=== PATIENT | female | born 1990 | race Caucasian/White ===

== ENCOUNTER → 2018-06-01 | Outpatient (REF) | payer OTHER ==
[2018-06-01 18:17] LABS: APPEARANCE, URINE CLEAR (CLEAR); BACTERIA, URINE AUTO NEGATIVE (NEGATIVE); BILIRUBIN, URINE AUTO NEGATIVE (NEGATIVE); BLOOD, URINE BLOOD 1+ (NEGATIVE); CALCIUM OXALATE CRYSTALS SMALL; COLOR, URINE YELLOW (YELLOW); GLUCOSE, URINE (UA) AUTO NEGATIVE (NEGATIVE); KETONE, URINE AUTO NEGATIVE (NEGATIVE); LEUKOCYTE ESTERASE, URINE AUTO NEGATIVE (NEGATIVE); MUCUS, URINE SMALL (NEGATIVE); NITRITE, URINE AUTO NEGATIVE (NEGATIVE); PROTEIN, URINE AUTO NEGATIVE (NEGATIVE); RBC, URINE AUTO 2 /HPF (0-3); SQUAMOUS EPITHELIAL CELL UR AU 1 /HPF (0-6); WBC, URINE AUTO 2 /HPF (0-3)
== END ==
LOC: M SMT 17:11
PROVIDERS: ATTEND Nurse Practitioner Family
DX: N30.10 Interstitial cystitis (chronic) without hematuria (principal)
CPT/HCPCS: 51798; 81001; 87088; 87186; G0463

== ENCOUNTER → 2018-09-23 | Outpatient (REF) | payer OTHER ==
[2018-09-23 14:03] LABS: APPEARANCE, URINE CLEAR (CLEAR); BACTERIA, URINE AUTO NEGATIVE (NEGATIVE); BILIRUBIN, URINE AUTO NEGATIVE (NEGATIVE); BLOOD, URINE BLOOD 1+ (NEGATIVE); COLOR, URINE YELLOW (YELLOW); GLUCOSE, URINE (UA) AUTO NEGATIVE (NEGATIVE); KETONE, URINE AUTO NEGATIVE (NEGATIVE); LEUKOCYTE ESTERASE, URINE AUTO NEGATIVE (NEGATIVE); MUCUS, URINE SMALL (NEGATIVE); NITRITE, URINE AUTO NEGATIVE (NEGATIVE); PROTEIN, URINE AUTO NEGATIVE (NEGATIVE); RBC, URINE AUTO 0 /HPF (0-3); SPECIFIC GRAVITY URINE AUTO 1.018 (1.002-1.035); SQUAMOUS EPITHELIAL CELL UR AU 1 /HPF (0-6); UROBILINOGEN, URINE AUTO 0.2 mg/dL (0.0-2.0); WBC, URINE AUTO 1 /HPF (0-3)
== END ==
LOC: M SMT 13:30
PROVIDERS: ATTEND Nurse Practitioner Family
DX: N30.10 Interstitial cystitis (chronic) without hematuria (principal)
CPT/HCPCS: 51798; 81001; 87086; G0463

== ENCOUNTER 2018-11-12 20:57 | Emergency (ER) | payer OTHER ==
[2018-11-12] MEDS ORDERED: PROT20TA11 PO (21:30)
[2018-11-12] MEDS ORDERED: HYDR-3363 PO (21:30)
[2018-11-12] MEDS ORDERED: XANA0.25 PO (21:30)
[2018-11-12] MEDS ORDERED: TOPI25TA10 PO (21:30)
[2018-11-12] MEDS ORDERED: ONDA4TAB6 PO (23:26)
[2018-11-12] MEDS ORDERED: ONDANSETRON 4 MG ORAL DISINTEGRATING TAB (Q0162 PER 1MG) PO ONE (23:30)
[2018-11-12 23:34] VITALS: BP 120/69
== END 2018-11-12 23:35 | disposition home or self-care (01) ==
LOC: M ED 20:57
DX: F32.9 Major depressive disorder, single episode, unspecified (principal); K58.9 Irritable bowel syndrome, unspecified; Z87.440 Personal history of urinary (tract) infections; Z91.018 Allergy to other foods; Z91.010 Allergy to peanuts; Z88.0 Allergy status to penicillin; Z91.012 Allergy to eggs; Z91.013 Allergy to seafood; Z79.899 Other long term (current) drug therapy
CPT/HCPCS: 99284; Q0162

== ENCOUNTER 2018-12-02 03:55 | Emergency (ER) | payer OTHER ==
[~2018-12-02] VITALS: Ht 162.6 cm; Wt 44.5 kg
[~2018-12-02 03:55] MED LIST: HYDR-3363 PO; ONDA4TAB6 PO; PROT20TA11 PO; TOPI25TA10 PO; XANA0.25 PO
[2018-12-02 04:03] VITALS: BP 115/77
[2018-12-02] MEDS ORDERED: PENT10CA PO (04:05)
[2018-12-02] MEDS ORDERED: PRED20TA PO (04:42)
[2018-12-02] MEDS ORDERED: methylPREDNISolone INJ 125 MG/2 ML VIAL (J2930) IV ONE (04:45)
[2018-12-02] MEDS ORDERED: methylPREDNISolone INJ 125 MG/2 ML VIAL (J2930) IM ONE (04:45)
== END 2018-12-02 04:59 | disposition home or self-care (01) ==
LOC: M ED 03:55
DX: R22.0 Localized swelling, mass and lump, head (principal); H05.223 Edema of bilateral orbit; T39.1X5A Adverse effect of 4-Aminophenol derivatives, initial encounter; Z88.8 Allergy status to other drugs, medicaments and biological substances; F41.9 Anxiety disorder, unspecified; K21.9 Gastro-esophageal reflux disease without esophagitis; F17.200 Nicotine dependence, unspecified, uncomplicated; Z88.0 Allergy status to penicillin; Z91.018 Allergy to other foods; Z91.010 Allergy to peanuts; Z91.012 Allergy to eggs; Z79.899 Other long term (current) drug therapy
CPT/HCPCS: 96374; 99284; J2930

== ENCOUNTER → 2019-07-31 | Outpatient (REF) | payer BC, MEDICAID ==
[~2019-07-31] MED LIST changes: +PENT10CA PO; +PRED20TA PO
== END ==
LOC: M PLALAB 14:17
PROVIDERS: ATTEND Advanced Practice Midwife
DX: O03.9 Complete or unspecified spontaneous abortion without complication (principal)
CPT/HCPCS: 84702; G0123

== ENCOUNTER → 2019-10-24 | Outpatient (REF) | payer BC ==
[2019-10-24 18:13] LABS: APPEARANCE, URINE CLEAR (CLEAR); BACTERIA, URINE AUTO 1+ (NEGATIVE); BILIRUBIN, URINE AUTO NEGATIVE (NEGATIVE); BLOOD, URINE BLOOD 1+ (NEGATIVE); COLOR, URINE STRAW (YELLOW); GLUCOSE, URINE (UA) AUTO NEGATIVE (NEGATIVE); KETONE, URINE AUTO NEGATIVE (NEGATIVE); LEUKOCYTE ESTERASE, URINE AUTO NEGATIVE (NEGATIVE); NITRITE, URINE AUTO NEGATIVE (NEGATIVE); PROTEIN, URINE AUTO NEGATIVE (NEGATIVE); RBC, URINE AUTO 1 /HPF (0-3); SPECIFIC GRAVITY URINE AUTO 1.006 (1.002-1.035); SQUAMOUS EPITHELIAL CELL UR AU 1 /HPF (0-6); UROBILINOGEN, URINE AUTO 0.2 mg/dL (0.0-2.0); WBC, URINE AUTO 6 /HPF (0-3)
== END ==
LOC: M SMT 17:22
PROVIDERS: ATTEND Nurse Practitioner Women's Health
DX: R30.0 Dysuria (principal)

== ENCOUNTER → 2019-12-14 | Outpatient (REF) | payer BC, OTHER ==
[2019-12-14 19:42] LABS: CHLAMYDIA DNA AMPLIFICATION NEGATIVE (NEGATIVE); GC DNA AMPLIFICATION NEGATIVE (NEGATIVE)
== END ==
LOC: M SFHCWAGY 16:38
PROVIDERS: ATTEND Nurse Practitioner Family
DX: Z11.3 Encounter for screening for infections with a predominantly sexual mode of transmission (principal)

== ENCOUNTER → 2020-01-25 | Outpatient (REF) | payer BC, OTHER ==
[2020-02-28 10:55] LABS: INR 0.98; PROTHROMBIN TIME 13.2 SECONDS (11.8-14.0)
[2020-02-28 12:55] LABS: HEMATOCRIT 37.8 % (36.0-47.0); HEMOGLOBIN 12.4 g/dl (12.0-15.5); MEAN CORPUSCULAR HGB CONC 32.8 g/dl (32.0-36.5); MEAN CORPUSCULAR VOLUME 88.5 fl (80.0-96.0); PLATELET COUNT, AUTOMATED 211 10^3/uL (150-450); RED BLOOD COUNT 4.27 10^6/uL (4.00-5.40); WHITE BLOOD COUNT 5.2 10^3/uL (4.0-10.0)
[2020-02-29 09:37] LABS: AMORPHOUS SEDIMENT SMALL (NEGATIVE); APPEARANCE, URINE CLOUDY (CLEAR); BACTERIA, URINE AUTO NEGATIVE (NEGATIVE); BILIRUBIN, URINE AUTO NEGATIVE (NEGATIVE); BLOOD, URINE BLOOD 2+ (NEGATIVE); COLOR, URINE YELLOW (YELLOW); GLUCOSE, URINE (UA) AUTO NEGATIVE (NEGATIVE); KETONE, URINE AUTO NEGATIVE (NEGATIVE); LEUKOCYTE ESTERASE, URINE AUTO 3+ (NEGATIVE); MUCUS, URINE SMALL (NEGATIVE); NITRITE, URINE AUTO NEGATIVE (NEGATIVE); PROTEIN, URINE AUTO NEGATIVE (NEGATIVE); RBC, URINE AUTO 15 /HPF (0-3); SPECIFIC GRAVITY URINE AUTO 1.023 (1.002-1.035); SQUAMOUS EPITHELIAL CELL UR AU 30 /HPF (0-6); UROBILINOGEN, URINE AUTO 0.2 mg/dL (0.0-2.0); WBC, URINE AUTO 10 /HPF (0-3)
[2020-03-11 11:46] LABS: BLOOD UREA NITROGEN 9 MG/DL (7-18); CALCIUM LEVEL 8.5 MG/DL (8.5-10.1); CARBON DIOXIDE LEVEL 26 MEQ/L (21-32); CHLORIDE LEVEL 110 MEQ/L (98-107); CREATININE FOR GFR 0.74 MG/DL (0.55-1.30); GLOMERULAR FILTRATION RATE > 60.0 (>60); GLUCOSE, FASTING 77 MG/DL (70-100); POTASSIUM SERUM 3.9 MEQ/L (3.5-5.1); SODIUM LEVEL 142 MEQ/L (136-145)
[2020-03-11 11:47] LABS: HCG, SERUM QUALITATIVE NEGATIVE (NEGATIVE)
== END ==
LOC: M LABSMT 08:54
PROVIDERS: ATTEND Nurse Practitioner Women's Health
DX: Z01.818 Encounter for other preprocedural examination (principal); R30.0 Dysuria; N30.10 Interstitial cystitis (chronic) without hematuria

== ENCOUNTER 2020-01-29 08:28 | Day surgery (SDC) | payer BC, OTHER ==
[2020-01-29] MEDS ORDERED: BOTOX THERAPEUTIC 100 UNIT VIAL (J0585 PER 1 UNIT) ONE (10:01)
[2020-01-29] MEDS ORDERED: SOD CHL As Ordered ONE (10:17)
[2020-01-29] MEDS ORDERED: GENTAMICIN As Ordered ONE (10:17)
[2020-01-29] MEDS ORDERED: ONDANSETRON 4MG/2ML VIAL As Ordered ONE ×2 (10:42→11:12)
[2020-01-29] MEDS ORDERED: dexameTHASONE 4 MG/ML 1ML VIAL (J1100 PER 1MG) As Ordered ONE (10:42)
[2020-01-29] MEDS ORDERED: MIDAZOLAM INJ 2MG/2ML VIAL (J2250 PER 1MG) As Ordered ONE (10:42)
[2020-01-29] MEDS ORDERED: propofoL 200 MG/20 ML VIAL As Ordered ONE (10:42)
[2020-01-29] MEDS ORDERED: LIDOCAINE 2% 100MG/5ML SDV (FOR ANES.) As Ordered ONE (10:42)
[2020-01-29] MEDS ORDERED: fentaNYL 100 MCG/2 ML INJECTION (J3010) As Ordered ONE (10:42)
[2020-01-29] MEDS ORDERED: LIDOCAINE 2% MDV 20ML VIAL As Ordered ONE ×2 (10:53→10:54)
--- NOTE | 2020-03-21 12:05 | RO ---
DATE OF OPERATION: 01/29/2020 PREOPERATIVE DIAGNOSIS: Urinary frequency and interstitial cystitis. POSTOPERATIVE DIAGNOSIS: Urinary frequency and interstitial cystitis. PROCEDURE: Cystoscopy with hydrodistention and Botox injection. SURGEON: Rodríguez Luna MD ANESTHESIA: General. INDICATION FOR OPERATION: This is a 29-year-old white female who presented to the office for complaints of urinary frequency and was therefore brought to the operating room for hydrodistention and Botox injection. She has a previous history of interstitial cystitis and hydrodistention. DESCRIPTION OF OPERATION: The patient was anesthetized with general anesthesia, placed in lithotomy position, prepped with Betadine paint and draped in an aseptic manner. A #22 [place] cystoscope was then inserted into the meatus and advanced under direct vision of a 30 degree lens to the bladder. The bladder was then filled under gravity pressure and when deflated had mild capillary bleeding. The bladder was then reinflated to 500 mL and left for 3 minutes. The bladder was then deflated. Botox was then injected into ten areas in the bladder for a total of 100 units. The patient tolerated this procedure well. 60 mL of 2% lidocaine was then left in the bladder when the cystoscope was removed. The patient was then awakened and sent to recovery room in stable condition, having tolerated the procedure well. RICK
== END 2020-01-29 13:02 | disposition home or self-care (01) ==
LOC: M SDC 08:28
PROVIDERS: ATTEND Urology
DX: R35.0 Frequency of micturition (principal); N30.10 Interstitial cystitis (chronic) without hematuria; K21.9 Gastro-esophageal reflux disease without esophagitis; F41.9 Anxiety disorder, unspecified; J45.909 Unspecified asthma, uncomplicated; Z79.899 Other long term (current) drug therapy
CPT/HCPCS: 52260; 52287; J0585; J1100; J1580; J2250; J2405; J3010

== ENCOUNTER 2020-07-19 14:38 | Emergency (ER) | payer BC, OTHER ==
[~2020-07-19] VITALS: Ht 162.6 cm; Wt 48.6 kg
[2020-07-19] MEDS ORDERED: NS 1,000 ML IV ONE (15:45)
[2020-07-19 16:12] LABS: BASO % 0.4 % (0.0-1.0); EOS # 0.2 10^3/uL (0.0-0.5); HEMATOCRIT 40.7 % (36.0-47.0); HEMOGLOBIN 13.4 g/dl (12.0-15.5); LYMPH # 1.7 10^3/uL (1.5-5.0); MEAN CORPUSCULAR HEMOGLOBIN 28.8 pg (27.0-33.0); MEAN CORPUSCULAR HGB CONC 32.9 g/dl (32.0-36.5); MEAN CORPUSCULAR VOLUME 87.3 fl (80.0-96.0); MONO # 0.3 10^3/uL (0.0-0.8); MONO % 6.2 % (0.0-5.0); NEUTROPHILS # 2.8 10^3/uL (1.5-8.5); NEUTROPHILS % 56.2 % (36.0-66.0); PLATELET COUNT, AUTOMATED 203 10^3/uL (150-450); RED BLOOD COUNT 4.66 10^6/uL (4.00-5.40)
--- OUTSIDE RECORDS SUMMARY | 2020-07-19 16:17 | CCD ---
Author Author [facility] Organization [facility] Address Unknown Phone Unavailable Care Team Providers Care Chair Car Driver Name Role Phone Rodríguez Luna Unavailable PROBLEMS Type Condition ICD9-CM Code [id number] Code Onset Dates Condition S tatus SNOMED Code Notes Problem Abnormal vaginal bleeding N93.9 Active 443176 002 Problem Dyspareunia in female N94.10 Active 32810456 Problem Other tobacco product nicotine dependence, uncomplicated F17.290 Active 26778536 Problem Acute left-sided low back pa in with sciatica, sciatica laterality unspecified M54.40 Active 75686367 Problem Interstitial cystitis N30.10 Active 046095250 Problem Renal calculi N20.0 Active 88264944 Problem GERD without esophagitis K21.9 Active 9769502 05 Problem Mild intermittent asthma without complication J45. 20 Active 979650517 Problem Multiple food allergies Z91.018 Active 25116926 1 Problem Multiple allergies Z88.9 Active 512802829 ALLERGIES Allergen (clinical drug ingredient) Drug/Non Drug Allergy do cumented on EMR Reaction Allergy Type Onset Date Status amoxicillin Amoxicillin(NDC Code:[address]-56) RASH/FEVER Drug Aller gy Active PORK, BLACK PEPPER Unknown Non Drug Allergy Active fesoterodine Toviaz(NDC Code:[address]-66) ANAPHYLAXIS Drug Allergy Active DAIRY PROTEIN, WHEAT, CORN, CHOLCOLATE, PEANUTS, AL Un known Non Drug Allergy Active FISH (OTHER THAN SHELLFISH) UNKNOWN Non Drug Allergy Active BROWN RICE, ALMONDS, TOMATOES, WHITE POTATOES, SOY, Un known Non Drug Allergy Active ENCOUNTERS from 1990 to 2020-07-12 Encounter Location Date Provider Diagnosis [facility] U[facility] [address] [place] [address] Apr Rodríguez Luna Interstitial cystitis N30.10 ; Dysuria R 30.0 ; UTI (urinary tract infection) N39.0 and Renal calculi N20.0 IMMUNIZATIONS No Information SOCIAL HISTORY Tobacco Use: Social History Observation Description Date Details (start date - stop date) Current some day smoker Sex Assigned At : Social History Observation Description Sex Assigned At Unknown Education: Question Answer Notes Level of Education: Finished High School Audit Question Answer Notes Total Score: 0 Interpretation: Alcohol Education Language: Question Answer Notes Languages spoken: Faroese Latter-Day: Question Answer Notes Latter-Day 08 Confucianism No scientologist beliefs that would impact health care. Sexual Hx: Question Answer Notes Had sex in the last 12 months (vaginal, oral, or anal)? Yes Have you ever had an STD? No with Men only Use protection? No Drug and Alcohol Question Answer Notes Total Score: 0 Interpretation: No problems reported Alcohol Screening: Question Answer Notes Did you have a drink containing alcohol in the past year? Ye s Points 1 Interpretation Negative How often did you have six or more drinks on one occas ion in the past year? Never (0 points) How many drinks did you have on a typica l day when you were drinking in the past year? 1 or 2 (0 points) How often did you have a drink containing alcohol in t he past year? Monthly or less (1 point) Tobacco Use: Question Answer Notes Are you a: current some day smoker 1-3 cigarettes a day REASON FOR REFERRAL No Information VITAL SIGNS No information MEDICATIONS Medication SIG (Take, Route, Frequency, Duration) Notes Start Da te End Date Status Pyridium 100 MG 1 tablet after meals Orally Three times a day as needed for burning sensation for 30 days Ac tive Flexeril 10 MG 1 tablet 1 to 2 hours before bedtime Orally three times daily as needed Active Advair Diskus 250-50 MCG/DOSE 1 puff Inhalation Twice a day Active HydrOXYzine HCl 25 MG 1 tablet as needed Orally before bedtime f or 90 day(s) Active Protonix 20 MG 1 tablet Orally Once a day Active Multivital 1 tab orally Daily Active NuvaRing 0.12-0.015 MG/24HR 1 ring Vaginal for 30 day(s) Not-Taking Claritin-D 12 Hour 5-120 MG 1 tablet as needed Orally every 12 hrs Active Proventil HFA 108 (90 Base) MCG/ACT 1 puff as needed I nhalation every 4 hrs for 30 Days Aug, Active Bactrim DS 800-160 MG 1 tablet Orally Twice a day for 10 day(s) October, Not-Taking Elmiron 100 MG 1 capsule on an empty stomach Orally Daily for 9 0 day(s) May, Not-Taking NuvaRing 0.12-0.015 MG/24HR [address] for 3 weeks, remove, and replace with a new ring after 7 day break Vaginal x 3 weeks then one week ring free for 30 day(s) Jul, Active PROCEDURES No Information RESULTS No Results REASON FOR VISIT CT Scan MEDICAL (GENERAL) HISTORY Type Description Date Medical History allergies, seasonal/medication/food Medical History stress induced seizures Medical History scoliosis Medical History migraines Medical History anxiety/depression Medical History chronic R hip and low back pain Medical History asthma, mild persistent - Asthma/allergy Medical History GERD Medical History IBS Medical History endometriosis Medical History intestitial cystitis/microscopic hematur ia Surgical History repair of B ear drums - [place] 2017 Surgical History cystoscopy - [place] 2013 Surgical History bladdedr expansion Surgical History adnoidectomy as a small child Surgical History tonsillectomy - [facility] Dr [place]o [place] 2016 Hospitalization History No Hospitalization history informati on Goals Section No Information Health Concerns No Information MEDICAL EQUIPMENT No Information MENTAL STATUS No Information FUNCTIONAL STATUS No Information ASSESSMENTS Encounter Date Diagnosis Assessment Notes Treatment Notes Treatm ent Clinical Notes Apr, Interstitial cystitis (ICD-10 - N30.10) Apr, Dysuria (ICD-10 - R30.0) Apr, UTI (urinary tract infection) (ICD-10 - N39.0) Apr, Renal calculi (ICD-10 - N20.0) PLAN OF TREATMENT Treatment Notes Test Name Order Date CT ABD & Pelvis w/o Contrast 2020-07-12 ADM ABDOMEN 1 VIEW (KUB) 2020-07-12 Insurance Providers Payer Name Payer Address Payer Phone Insured Name Patient Relati onship to Insured Coverage Start Date Coverage End Date [facility] [phone] [facility] [phone] Efren Espinosa CORPORATE CLAIMS DEPT [address] [place] [address] [phone] ALEK ESPINOSA self
--- OUTSIDE RECORDS SUMMARY | 2020-07-19 16:17 | CCD ---
Author Author [facility] Organization [facility] Address Unknown Phone Unavailable Care Team Providers Care Watch Crystal Molder Name Role Phone Luna Rodríguez Unavailable PROBLEMS Type Condition ICD9-CM Code [id number] Code Onset Dates Condition S tatus SNOMED Code Notes Problem Interstitial cystitis N30.10 Active 995026011 Problem Abnormal vaginal bleeding N93.9 Active 391541 002 Problem Dyspareunia in female N94.10 Active 02177431 Problem Multiple allergies Z88.9 Active 907734929 Problem Acute left-sided low back pa in with sciatica, sciatica laterality unspecified M54.40 Active 24773102 Problem Other tobacco product nicotine dependence, uncomplicated F17.290 Active 22867190 Problem GERD without esophagitis K21.9 Active 6614506 05 Problem Mild intermittent asthma without complication J45. 20 Active 199559494 Problem Multiple food allergies Z91.018 Active 14901219 1 ALLERGIES Allergen (clinical drug ingredient) Drug/Non Drug Allergy do cumented on EMR Reaction Allergy Type Onset Date Status amoxicillin Amoxicillin(NDC Code:[address]-38) RASH/FEVER Drug Aller gy Active PORK, BLACK PEPPER Unknown Non Drug Allergy Active fesoterodine Toviaz(NDC Code:[address]-86) ANAPHYLAXIS Drug Allergy Active DAIRY PROTEIN, WHEAT, CORN, CHOLCOLATE, PEANUTS, AL Un known Non Drug Allergy Active FISH (OTHER THAN SHELLFISH) UNKNOWN Non Drug Allergy Active BROWN RICE, ALMONDS, TOMATOES, WHITE POTATOES, SOY, Un known Non Drug Allergy Active ENCOUNTERS from 1990 to 2020-05-14 Encounter Location Date Provider Diagnosis [facility] U[facility] [address] [place] [address] Apr Rodríguez Luna Interstitial cystitis N30.10 ; Dysuria R 30.0 and Acute left-sided low back pain with sciatica, sciatica laterality unspecified M54.40 IMMUNIZATIONS No Information SOCIAL HISTORY Tobacco Use: Social History Observation Description Date Details (start date - stop date) Current some day smoker Sex Assigned At : Social History Observation Description Sex Assigned At Unknown Education: Question Answer Notes Level of Education: Finished High School Audit Question Answer Notes Total Score: 0 Interpretation: Alcohol Education Language: Question Answer Notes Languages spoken: Anguillan Yarsani: Question Answer Notes Yarsani 08 Confucianism No rastafarian beliefs that would impact health care. Sexual [...] REASON FOR REFERRAL No Information VITAL SIGNS Weight 109 lbs Apr, Height 64 in Apr, BMI 18.71 kg/m2 Apr, Heart Rate 95 /min Apr, Respiratory Rate 18 /min Apr, Temperature 97.5 degrees Fahrenheit Apr, Oximetry 98% Apr, Blood pressure systolic 104 mm Hg Apr, Blood pressure diastolic 76 mm Hg Apr, MEDICATIONS Medication SIG (Take, Route, Frequency, Duration) [...] 1 tablet as needed Orally before bedtime or day(s) Active Protonix 20 MG 1 tablet [...] Information RESULTS No Results REASON FOR VISIT 1 MO FU oab MEDICAL (GENERAL) HISTORY Type Description Date Medical History allergies, seasonal/medication/food Medical History stress induced seizures Medical History scoliosis Medical History migraines Medical History anxiety/depression Medical History chronic R hip and low back pain Medical History asthma, mild persistent - Asthma/allergy Medical History GERD Medical History IBS Medical History endometriosis Medical History intestitial cystitis/microscopic hematur ia Surgical History repair of B ear drums - [place] 2017 Surgical History cystoscopy - [place] 2013 Surgical History bladdedr expansion Surgical History adnoidectomy as a small child Surgical History tonsillectomy - [facility] Dr [place]o [place] 2016 Hospitalization History No Hospitalization history informati on Goals Section No Information Health Concerns No Information MEDICAL EQUIPMENT No Information MENTAL STATUS No Information FUNCTIONAL STATUS No Information ASSESSMENTS Encounter Date Diagnosis Assessment Notes Treatment Notes Treatm ent Clinical Notes Apr, Interstitial cystitis (ICD-10 - N30.10) Apr, Dysuria (ICD-10 - R30.0) Apr, Acute left-sided low back pa in with sciatica, sciatica laterality unspecified (ICD-10 - M54.40) Apr, Other Medical states that overall her bladder condition is much improved after Botox. She is voiding less often and daytime going only about 5 times and she gets up only once at night. Her volumes have not seemed to change. Because she is doing better, she will see how long the Botox last and call us should she start to have more urinary issues. In the meantime, she will revisit her voiding diary and try to avoid foods that cause her bladder discomfort. She is also complaining of some new onset left lower back pain which appears muscular but a CT scan will be obtained to make sure she does not have any renal calculi. PLAN OF TREATMENT Treatment Notes Test Name Order Date CT ABD & Pelvis w/o Contrast 2020-05-14 Next Appt Details prn Reason: Insurance Providers Payer Name Payer Address Payer Phone Insured Name Patient Relati onship to Insured Coverage Start Date Coverage End Date [facility] CORPORATE CLAIMS DEPT [address] [facility] [phone] ALEK ESPINOSA [facility] [phone] [facility] [id number] Efren Espinosa
--- OUTSIDE RECORDS SUMMARY | 2020-07-19 16:18 | CCD ---
Author Author [facility] Organization [facility] Address Unknown Phone Unavailable Care Team Providers Care Diesel [employer]ic [employer] Name Role Phone KATHY GAMEZ MD Unavailable Unavailable KATHY GAMEZ MD Unavailable Unavailable KATHY GAMEZ MD Unavailable Unavailable KATHY GAMEZ MD Unavailable Unavailable KATHY GAMEZ MD Unavailable Unavailable KATHY GAMEZ MD Unavailable Unavailable KATHY GAMEZ MD Unavailable Unavailable KATHY GAMEZ MD Unavailable Unavailable KATHY GAMEZ MD Unavailable Unavailable KATHY GAMEZ MD Unavailable Unavailable KATHY GAMEZ MD Unavailable Unavailable KATHY GAMEZ MD Unavailable Unavailable KATHY GAMEZ MD Unavailable Unavailable KATHY GAMEZ MD Unavailable Unavailable KATHY GAMEZ MD Unavailable Unavailable KATHY GAMEZ MD Unavailable Unavailable KATHY GAMEZ MD Unavailable Unavailable KATHY GAMEZ MD Unavailable Unavailable KATHY GAMEZ MD Unavailable Unavailable KATHY GAMEZ MD Unavailable Unavailable KATHY GAMEZ MD Unavailable Unavailable KATHY GAMEZ MD Unavailable Unavailable CHROSTOWSKI, KATHY MD Unavailable Unavailable CHROSTOWSKI, KATHY MD Unavailable Unavailable CHROSTOWSKI, KATHY MD Unavailable Unavailable CHROSTOWSKI, KATYH MD Unavailable Unavailable CHROSTOWSKI, KATHY MD Unavailable Unavailable CHROSTOWSKI, KATHY MD Unavailable Unavailable CHROSTOWSKI, KATHY MD Unavailable Unavailable CHROSTOWSKI, KATHY MD Unavailable Unavailable CHROSTOWSKI, KATHY MD Unavailable Unavailable CHROSTOWSKI, KATHY MD Unavailable Unavailable CHROSTOWSKI, KATHY MD Unavailable Unavailable CHROSTOWSKI, KATHY MD Unavailable Unavailable CHROSTOWSKI, KATHY MD Unavailable Unavailable CHROSTOWSKI, KATHY MD Unavailable Unavailable CHROSTOWSKI, KATHY MD Unavailable Unavailable CHROSTOWSKI, KATHY MD Unavailable Unavailable CHROSTOWSKI, KATHY MD Unavailable Unavailable CHROSTOWSKI, KATHY MD Unavailable Unavailable Re-disclosure Warning The records that you are about to access may contain information from federally-assisted alcohol or drug abuse programs. If such information is present, then the following federally mandated warning applies: This information has been disclosed to you from records protected by federal confidentiality rules (42 CFR part 2). The federal rules prohibit you from making any further disclosure of this information unless further disclosure is expressly permitted by the written consent of the person to whom it pertains or as otherwise permitted by 42 CFR part 2. A general authorization for the release of medical or other information is NOT sufficient for this purpose. The Federal rules restrict any use of the information to criminally investigate or prosecute any alcohol or drug abuse patient.The records that you are about to access may contain highly sensitive health information, the redisclosure of which is protected by Article 27-F of the [facility] Public Health law. If you continue you may have access to information: Regarding HIV / AIDS; Provided by facilities licensed or operated by the [facility] Office of Mental Health; or Provided by the [facility] Office for People With Developmental Disabilities. If such information is present, then the following [facility] mandated warning applies: This information has been disclosed to you from confidential records which are protected by state law. State law prohibits you from making any further disclosure of this information without the specific written consent of the person to whom it pertains, or as otherwise permitted by law. Any unauthorized further disclosure in violation of state law may result in a fine or assisted sentence or both. A general authorization for the release of medical or other information is NOT sufficient authorization for further disc losure. Allergies and Adverse Reactions Type Description Substance Reaction Status Data Source(s ) Drug allergy Toviaz fesoterodine ANAPHYLAXIS Active eCW1 ([facility]) Drug allergy Amoxicillin Amoxicillin RASH/FEVER Active eCW1 ([facility]) PORK, BLACK PEPPER PORK, BLACK PEPPER PORK, BLACK PEPPER Unknown A ctive eCW1 ([facility]) FISH (OTHER THAN SHELLFISH) FISH (OTHER THAN SHELLFISH) FISH (OTHER THAN SHELLFISH) UNKNOWN Active eCW1 ([facility]) DAIRY PROTEIN, WHEAT, CORN, CHOLCOLATE, PEANUTS, AL DA IRY PROTEIN, WHEAT, CORN, CHOLCOLATE, PEANUTS, AL DAIRY PROTEIN, WHEAT, CORN, CHOLCOLATE, PEANUTS, AL Unknown Active eCW1 ([facility]) BROWN RICE, ALMONDS, TOMATOES, WHITE POTATOES, SOY, BR OWN RICE, ALMONDS, TOMATOES, WHITE POTATOES, SOY, BROWN RICE, ALMONDS, TOMATOES, WHITE POT ATOES, SOY, Unknown Active eCW1 ([facility]) PORK, BLACK PEPPER PORK, BLACK PEPPER PORK, BLACK PEPPER Unknown A ctive eCW1 ([facility]) FISH (OTHER THAN SHELLFISH) FISH (OTHER THAN SHELLFISH) FISH (OTHER THAN SHELLFISH) UNKNOWN Active eCW1 ([facility]) DAIRY PROTEIN, WHEAT, CORN, CHOLCOLATE, PEANUTS, AL DA IRY PROTEIN, WHEAT, CORN, CHOLCOLATE, PEANUTS, AL DAIRY PROTEIN, WHEAT, CORN, CHOLCOLATE, PEANUTS, AL Unknown Active eCW1 ([facility]) BROWN RICE, ALMONDS, TOMATOES, WHITE POTATOES, SOY, BR OWN RICE, ALMONDS, TOMATOES, WHITE POTATOES, SOY, BROWN RICE, ALMONDS, TOMATOES, WHITE POT ATOES, SOY, Unknown Active eCW1 ([facility]) PORK, BLACK PEPPER PORK, BLACK PEPPER PORK, BLACK PEPPER Unknown A ctive eCW1 ([facility]) FISH (OTHER THAN SHELLFISH) FISH (OTHER THAN SHELLFISH) FISH (OTHER THAN SHELLFISH) UNKNOWN Active eCW1 ([facility]) DAIRY PROTEIN, WHEAT, CORN, CHOLCOLATE, PEANUTS, AL DA IRY PROTEIN, WHEAT, CORN, CHOLCOLATE, PEANUTS, AL DAIRY PROTEIN, WHEAT, CORN, CHOLCOLATE, PEANUTS, AL Unknown Active eCW1 ([facility]) BROWN RICE, ALMONDS, TOMATOES, WHITE POTATOES, SOY, BR OWN RICE, ALMONDS, TOMATOES, WHITE POTATOES, SOY, BROWN RICE, ALMONDS, TOMATOES, WHITE POT ATOES, SOY, Unknown Active eCW1 ([facility]) Family History Family Member Name Family Member Gender Family Member Status Date o f Status Description Data Source(s) Unknown Female Problem MEDENT ([facility]) Unknown Unknown Problem [facility]) Encounters Encounter Providers Location Date Indications Data Source(s ) Unknown [address] [facility] [address] 04/18/2020 12:00:00 AM EST eCW1 ([facility]) Outpatient [address] [facility] [address] 04/18/2020 12:00:00 AM EST eCW1 ([facility]) Outpatient Attender: KATHY GAMEZ MD Main Office 03/27/2020 02:19:00 PM EDT MEDENT ([facility]) Outpatient Attender: KATHY GAMEZ MD Main Office 03/20/2020 02:30:00 PM EDT MED[facility] ([facility]) Unknown [address] [facility] [place] [address] 01/03/2020 12:00:00 AM EDT eCW1 ([facility]) Unknown [address] [facility] [place] [address] 01/03/2020 12:00:00 AM EDT eCW1 ([facility]) Unknown [address] [facility] [place] [address] 12/25/2019 12:00:00 AM EDT eCW1 ([facility]) [facility] [place] [address] [facility] [address] 12/14/2019 12:00:00 AM EDT eCW1 ([facility] [address] [facility] [address] 10/26/2019 12:00:00 AM EDT eCW1 ([facility] [address] [facility] [address] 10/23/2019 12:00:00 AM EDT eCW1 ([facility]) [facility] [address] [facility] [address] 10/20/2019 12:00:00 AM EDT eCW1 ([facility]) Outpatient Attender: KATHY GAMEZ MD Main Office 10/19/2019 10:45:00 AM EDT MEDENT ([facility]) [facility] [place] [address] [facility] [address] 09/08/2019 12:00:00 AM EDT eCW1 ([facility] [place] [address] [facility] [address] 09/08/2019 12:00:00 AM EDT eCW1 ([facility]) [facility] [place] [address] [facility] [address] 09/07/2019 12:00:00 AM EDT eCW1 ([facility] [place] [address] [facility] [place] [address] 09/07/2019 12:00:00 AM EDT eCW1 ([facility]) [facility] [address] [facility] [address] 09/05/2019 12:00:00 AM EDT eCW1 ([facility]) [facility] [place]ania [address] [facility] [address] 09/05/2019 12:00:00 AM EDT eCW1 ([facility]) [facility] Urology [address] [facility] [place] [address] 09/01/2019 12:00:00 AM EDT eCW1 ([facility]) [facility] Urology [address] [facility] [place] [address] 09/01/2019 12:00:00 AM EDT eCW1 ([facility]) [facility] Urology Center [address] [place] [address] 09/01/2019 12:00:00 AM EDT eCW1 ([facility]) [facility] Urology [address] [place] [address] Y [address] 08/24/2019 12:00:00 AM EDT eCW1 ([facility]) [facility]rology [address] [place] [address] Y [address] 08/24/2019 12:00:00 AM EDT eCW1 ([facility]) [facility] [address] [place] [address] 07/31/2019 12:00:00 AM EST eCW1 ([facility]) [address] [place] [address] 06/22/2019 12:00:00 AM EST eCW1 ([facility]) [address] [place] [address] 06/21/2019 12:00:00 AM EST eCW1 ([facility]) [address] [place] [address] 06/08/2019 12:00:00 AM EST eCW1 ([facility]) Medications Medication Brand Name Start Date Product Form Dose Route Admi nistrative Instructions Pharmacy Instructions Status Indications Reaction Description Data Source(s) Allergy Injection 2 Or More 03/27/2020 12:00:00 AM EDT completed MEDENT ([facility]) Medication administered onsite 60 ACTUAT Fluticasone propionate 0.25 MG /ACTUAT / salmeterol 0.05 MG/ACTUAT Dry Powder Inhaler [Advair] Advair Diskus 03/20/2020 12:00:00 AM EDT RESPIRATORY active MEDENT ([facility] Albuterol 0.83 MG/ML Inhalant Solution Albuterol Sulfate 1 12:00:00 AM EDT active MED[facility] ([facility] Sulfamethoxazole 800 MG / Trimethoprim 1 60 MG Oral Tablet [Bactrim] Bactrim DS 800-160 MG Bactrim DS 800-160 MG 10/26/2019 12:00:00 AM EDT 1.0 {table t} suspended Bactrim DS 800-160 MG eCW1 ( [facility]) Sulfamethoxazole 800 MG / Trimethoprim 1 60 MG Oral Tablet [Bactrim] Bactrim DS 800-160 MG Bactrim DS 800-160 MG 10/26/2019 12:00:00 AM EDT 1.0 {table t} suspended Bactrim DS 800-160 MG eCW1 ( [facility]) Sulfamethoxazole 800 MG / Trimethoprim 1 60 MG Oral Tablet [Bactrim] Bactrim DS 800-160 MG Bactrim DS 800-160 MG 10/26/2019 12:00:00 AM EDT 1.0 {table t} suspended Bactrim DS 800-160 MG eCW1 ( [facility]) Sulfamethoxazole 800 MG / Trimethoprim 1 60 MG Oral Tablet [Bactrim] Bactrim DS 800-160 MG Bactrim DS 800-160 MG 10/26/2019 12:00:00 AM EDT 1.0 {table t} suspended Bactrim DS 800-160 MG eCW1 ( [facility]) Sulfamethoxazole 800 MG / Trimethoprim 1 60 MG Oral Tablet [Bactrim] Bactrim DS 800-160 MG Bactrim DS 800-160 MG 10/26/2019 12:00:00 AM EDT 1.0 {table t} suspended Bactrim DS 800-160 MG eCW1 ( [facility]) Sulfamethoxazole 800 MG / Trimethoprim 1 60 MG Oral Tablet [Bactrim] Bactrim DS 800-160 MG Bactrim DS 800-160 MG 10/26/2019 12:00:00 AM EDT active 1 tablet eCW1 ([facility]) Compressor Nebulizer 10/19/2019 12:00:00 AM EDT active MEDENT ([facility]) 200 ACTUAT Albuterol 0.09 MG/ACTUAT Mete red Dose Inhaler [Proventil] Proventil HFA 108 (90 Base) MCG/ACT Proventil HFA 108 (90 Base) MCG/ACT 09/08/2019 12:00:00 AM EDT active 1 puff a s needed eCW1 ([facility]) 200 ACTUAT Albuterol 0.09 MG/ACTUAT Mete red Dose Inhaler [Proventil] Proventil HFA 108 (90 Base) MCG/ACT Proventil HFA 108 (90 Base) MCG/ACT 09/08/2019 12:00:00 AM EDT active 1 puff a s needed eCW1 ([facility]) 200 ACTUAT Albuterol 0.09 MG/ACTUAT Mete red Dose Inhaler [Proventil] Proventil HFA 108 (90 Base) MCG/ACT Proventil HFA 108 (90 Base) MCG/ACT 09/08/2019 12:00:00 AM EDT 1.0 {puff_as_needed} active Proventil HFA 108 (90 Base) MCG/ACT eCW1 ([facility]) 200 ACTUAT Albuterol 0.09 MG/ACTUAT Mete red Dose Inhaler [Proventil] Proventil HFA 108 (90 Base) MCG/ACT Proventil HFA 108 (90 Base) MCG/ACT 09/08/2019 12:00:00 AM EDT 1.0 {puff_as_needed} active Proventil HFA 108 (90 Base) MCG/ACT eCW1 ([facility]) 200 ACTUAT Albuterol 0.09 MG/ACTUAT Mete red Dose Inhaler [Proventil] Proventil HFA 108 (90 Base) MCG/ACT Proventil HFA 108 (90 Base) MCG/ACT 09/08/2019 12:00:00 AM EDT 1.0 {puff_as_needed} active Proventil HFA 108 (90 Base) MCG/ACT eCW1 ([facility]) 200 ACTUAT Albuterol 0.09 MG/ACTUAT Mete red Dose Inhaler [Proventil] Proventil HFA 108 (90 Base) MCG/ACT Proventil HFA 108 (90 Base) MCG/ACT 09/08/2019 12:00:00 AM EDT 1.0 {puff_as_needed} active Proventil HFA 108 (90 Base) MCG/ACT eCW1 ([facility]) 200 ACTUAT Albuterol 0.09 MG/ACTUAT Mete red Dose Inhaler [Proventil] Proventil HFA 108 (90 Base) MCG/ACT Proventil HFA 108 (90 Base) MCG/ACT 09/08/2019 12:00:00 AM EDT 1.0 {puff_as_needed} active Proventil HFA 108 (90 Base) MCG/ACT eCW1 ([facility]) 21 DAY Ethinyl Estradiol 0.405747 MG/HR / Etonogestrel 0.005 MG/HR Vaginal Ring [NuvaRing] NuvaRing 0.12-0.015 MG/24HR NuvaRing 0.12-0.015 MG/24HR 07/31/2019 12:00:00 AM EST active NuvaRing 0.12-0.015 MG/24HR eCW1 ([facility]) 21 DAY Ethinyl Estradiol 0.324529 MG/HR / Etonogestrel 0.005 MG/HR Vaginal Ring [NuvaRing] NuvaRing 0.12-0.015 MG/24HR NuvaRing 0.12-0.015 MG/24HR 07/31/2019 12:00:00 AM EST active NuvaRing 0.12-0.015 MG/24HR eCW1 ([facility]) 21 DAY Ethinyl Estradiol 0.115970 MG/HR / Etonogestrel 0.005 MG/HR Vaginal Ring [NuvaRing] NuvaRing 0.12-0.015 MG/24HR NuvaRing 0.12-0.015 MG/24HR 07/31/2019 12:00:00 AM EST active [address] for 3 weeks, remove, and replace with a new ring after 7 day break eCW1 ([facility]) 21 DAY Ethinyl Estradiol 0.459950 MG/HR / Etonogestrel 0.005 MG/HR Vaginal Ring [NuvaRing] NuvaRing 0.12-0.015 MG/24HR NuvaRing 0.12-0.015 MG/24HR 07/31/2019 12:00:00 AM EST active NuvaRing 0.12-0.015 MG/24HR eCW1 ([facility]) 21 DAY Ethinyl Estradiol 0.165416 MG/HR / Etonogestrel 0.005 MG/HR Vaginal Ring [NuvaRing] NuvaRing 0.12-0.015 MG/24HR NuvaRing 0.12-0.015 MG/24HR 07/31/2019 12:00:00 AM EST active NuvaRing 0.12-0.015 MG/24HR eCW1 ([facility]) 21 DAY Ethinyl Estradiol 0.212858 MG/HR / Etonogestrel 0.005 MG/HR Vaginal Ring [NuvaRing] NuvaRing 0.12-0.015 MG/24HR NuvaRing 0.12-0.015 MG/24HR 07/31/2019 12:00:00 AM EST active [address] for 3 weeks, remove, and replace with a new ring after 7 day break eCW1 ([facility]) 21 DAY Ethinyl Estradiol 0.202994 MG/HR / Etonogestrel 0.005 MG/HR Vaginal Ring [NuvaRing] NuvaRing 0.12-0.015 MG/24HR NuvaRing 0.12-0.015 MG/24HR 07/31/2019 12:00:00 AM EST active NuvaRing 0.12-0.015 MG/24HR eCW1 ([facility]) Insurance Providers Payer name Policy type / Coverage type Policy ID Covered constitution party ID Covered constitution party's relationship to macias Policy Macias Plan Information BCBS [facility] [id number] WI2 [id number] SP [id number] 000 BCBS [facility] [id number] WI2 [id number] EMEDNY [id number] SP [id number] [place] PPO [id number] [id number] MEDICAID [id number] SP [id number] BLUE CROSS OTHER 1 [id number] SP [id number] HEA [id number] S [id number] EAST HUMANA [id number] [facility] [id number] EAST HUMANA [id number] [facility] [id number] [employer] [employer] [id number] [employer] [id number] [facility] -OP [id number] 18 [id number] EAST HUMANA - O/P [id number] MEDICAID -O/P EMERGENCY ROOM [id number] ANSI-Not a Secondary Insurance [id number] ANSI-Not a Secondary Insurance [id number] ANSI-Not a Secondary Insurance [id number] ANSI-Not a Secondary Insurance [id number] ANSI-Not a Secondary Insurance [id number] ANSI-Not a Secondary Insurance [id number] Medicaid [facility] S D [id number] SELF [id number] Medicare C [id number] SELF [id number] Medicare C [id number] SELF [id number] [id number] UNAVAILABLE UNA[place]ILA BLE MEDICAID HEA [id number] S [id number] MEDICARE MCA [id number] S [id number] 0C1 MEDICARE MCA [id number] S [id number] 0C1 MEDICAID M [id number] Self [id number] MEDICARE A [id number] Self [id number] [id number] MEDICARE [id number] SP [id number] MEDICAID [facility] [id number] SP [id number] MEDICARE [id number] SP [id number] MEDICAID [facility] [id number] SP [id number] MEDICARE [id number] SP [id number] MEDICAID [facility] [id number] SP CG [id number] MEDICAID [facility] [id number] SP CG [id number] MEDICAID [facility] [id number] SP CG [id number] MEDICAID [facility] [id number] SP CG [id number] MEDICARE [id number] SP [id number] 0C1 MEDICAID [facility] [id number] SP [id number] Medicaid [facility] S D [id number] SELF [id number] Medicare C [id number] SELF [id number] Medicare C [id number] SELF [id number] A Medicaid [facility] S D [id number] SELF [id number] MEDICAID [facility] [id number] SP CG [id number] MEDICAID [facility] [id number] SP [id number] MEDICAID MD [id number] Patient is Insured [id number] [place] [id number] Patient is Insured [id number] Medicaid MD Medicaid Self Medicare [facility] Medicare Primary Self MEDICARE [id number] Tamara [id number] [id number] Medicaid/Medicare Medigap Part B Self Medicare Medicare Primary Self MEDICAID [facility] [id number] SP CG [id number] MEDICAID [facility] [id number] SP CG [id number] MEDICAID 3 [id number] MEDICARE 4 [id number] 0C1 MEDICAID [facility] [id number] SP CG [id number] SELFPAY 5 UNAVAILABLE 1 UNAVAILA BLE MEDICAID [facility] [id number] SP CG [id number] W UNAVAILABLE UNAVAILA BLE Problems, Conditions, and Diagnoses Code Display Name Description Problem Type Effective Dates Data Source(s) N20.0 Renal calculus Renal calculi Problem 07/11/2020 12:00:0 0 AM EST eCW1 ([facility]) M54.40 Sciatica Acute left-sided low back pain with sciatica, sciatica laterality unspecified Problem 04/18/2020 12:00:00 AM EST eCW1 ([facility]) J45.20 [id number] Mild intermittent asthma without complica tion Problem 12/14/2019 12:00:00 AM EDT eCW1 ([facility]) [id number] Allergic rhinitis caused by mold Allergi c rhinitis caused by mold Problem 10/19/2019 12:00:00 AM EDT MEDENT ([facility]) Note: 4++ reaction to various mold spore s on scratch test. Completed 2019. [id number] Allergic rhinitis due to house dust mite Allergic rhinitis due to house dust mite Problem 10/19/2019 12:00:00 AM EDT MEDENT ([facility]) Note: 4++ reaction to dust mites on scra tch test. Completed 2019. 75440646 Allergic rhinitis due to animals Allergic rhinit is due to animals Problem 10/19/2019 12:00:00 AM EDT MEDENT ([facility]) Note: 4++ reaction to cat on scratch casandra t. 3+ positive reaction to dog on intradermal test. Completed 2019. 62344877 Allergic rhinitis due to pollen Allergic rhiniti s due to pollen Problem 10/19/2019 12:00:00 AM EDT MEDENT ([facility]) Note: 4++ positive reaction to grass riki ayse and tree pollen and 4+ reaction to weed pollen with 3+ reaction to ragweed pollen on scratch test. Completed 2019. 545244296 Mild persistent asthma Mild persistent asthma Problem 10/19/2019 12:00:00 AM EDT MEDENT ([facility] ) 92470846 Allergic rhinitis Allergic rhinitis Problem 10/19/2019 12:00:00 AM EDT MEDENT ([facility]) Z88.9 [id number] Multiple allergies Problem 09/08/2019 12:00: 00 AM EDT eCW1 ([facility]) Z91.018 892903235 Multiple food allergies Problem 09/08/2019 1 2:00:00 AM EDT eCW1 ([facility]) Z88.9 753378707 Multiple allergies Problem 09/08/2019 12:00: 00 AM EDT eCW1 ([facility]) Z91.018 241410826 Multiple food allergies Problem 09/08/2019 1 2:00:00 AM EDT eCW1 ([facility]) K21.9 831206880 GERD without esophagitis Problem 06/08/2019 12:00:00 AM EST eCW1 ([facility]) F17.290 95459499 Other tobacco product nicotine d ependence, uncomplicated Problem 06/08/2019 12:00:00 AM EST eCW1 ([facility]) N94.10 59041570 Dyspareunia in female Problem 06/08/2019 12: 00:00 AM EST eCW1 ([facility]) N93.9 283427679 Abnormal vaginal bleeding Problem 06/08/2019 12:00:00 AM EST eCW1 ([facility]) K21.9 075721533 GERD without esophagitis Problem 06/08/2019 12:00:00 AM EST eCW1 ([facility]) F17.290 08074904 Other tobacco product nicotine d ependence, uncomplicated Problem 06/08/2019 12:00:00 AM EST eCW1 ([facility]) N94.10 67158188 Dyspareunia in female Problem 06/08/2019 12: 00:00 AM EST eCW1 ([facility]) N93.9 869063456 Abnormal vaginal bleeding Problem 06/08/2019 12:00:00 AM EST eCW1 ([facility]) Surgeries/Procedures Procedure Description Date Indications Data Source(s) PROF GALLO ALLG IMMNTX X W/PRV ALLGIC XTRCS NJXS 2019 12:00:00 AM EDT [facility] ([facility]) PREPJ& ALLERGEN IMMUNOTHERAPY 1/CORPORATE COMMUNICATIONS INTERN ANTIGEN 03/21/2020 12:00:00 AM EDT [facility] ([facility]) BRNCDILAT RSPSE SPMTRY PRE&POST-BRNCDILAT ADMN 020 12:00:00 AM EDT [facility] ([facility]) PREPJ& ALLERGEN IMMUNOTHERAPY 1/CORPORATE COMMUNICATIONS INTERN ANTIGEN 10/25/2019 12:00:00 AM EDT MEDENT ([facility] CMG WITH VOIDING PRESSURE STUDIES AND URETHRAL PRESSURE PROF ILE STUDIES 10/20/2019 12:00:00 AM EDT eCW1 ([facility]) INTRAABDOMINAL PRESSURE TEST 10/20/2019 12:00:00 AM ED T eCW1 ([facility]) ANAL/URINARY MUSCLE STUDY 10/20/2019 12:00:00 AM EDT eCW1 ([facility]) ELECTRO-UROFLOWMETRY FIRST 10/20/2019 12:00:00 AM EDT eCW1 ([facility]) BRNCDILAT RSPSE SPMTRY PRE&POST-BRNCDILAT ADMN 020 12:00:00 AM EDT MEDENT ([facility]) PERCUTANEOUS TESTS W/ALLERGENIC EXTRACTS 10/19/2019 12 :00:00 AM EDT MEDENT ([facility]) INTRACUTANEOUS TESTS W/ALLERGENIC EXTRACTS 10/19/2019 12:00:00 AM EDT MEDENT ([facility]) Influenza A+B 06/08/2019 12:00:00 AM EST eCW1 ([facility]) Results ID Date Data Source HCG, SERUM QUANTITATIVE 07/31/2019 12:00:00 AM EST eCW1 ([facility]) Name Value Range Interpretation Code Description Data Bernadette rce(s) Supporting Document(s) < 1.0 HCG, SERUM QUANTITATIVE eCW1 ( [facility]) Procedure Social History Code Duration Value Status Description Data Source(s ) Smoking 04/18/2020 12:00:00 AM EST Current some day smoker com pleted Current some day smoker eCW1 ([facility]) Smoking 04/18/2020 12:00:00 AM EST Current some day smoker com pleted Current some day smoker eCW1 ([facility]) Smoking 12/14/2019 12:00:00 AM EDT Current some day smoker com pleted Current some day smoker eCW1 ([facility]) Smoking 12/14/2019 12:00:00 AM EDT Current some day smoker com pleted Current some day smoker eCW1 ([facility]) Smoking 12/14/2019 12:00:00 AM EDT Current some day smoker com pleted Current some day smoker eCW1 ([facility]) Vital Signs ID Date Data Source UNK Name Value Range Interpretation Code Description Data Source(s) Diastolic blood pressure 76 mm[Hg] 76 mm[Hg] eCW1 ([facility]) Systolic blood pressure 104 mm[Hg] 104 mm[Hg] e CW1 ([facility]) Body temperature 97.5 [degF] 97.5 [degF] eCW1 ( [facility]) Respiratory rate 18 /min 18 /min eCW1 ([facility]) Heart rate 95 /min 95 /min eCW1 ([facility]) Body mass index (BMI) [Ratio] 18.71 kg/m2 18.71 kg/m2 eCW1 ([facility]) Body height 64 [in_i] 64 [in_i] eCW1 ([facility]) Body weight 109 [lb_av] 109 [lb_av] eCW1 ([facility]) Body mass index (BMI) [Ratio] 18.6 kg/m2 18.6 k g/m2 MEDENT ([facility]) Diastolic blood pressure 64 mm[Hg] 64 mm[Hg] MEDENT ([facility]) Systolic blood pressure 95 mm[Hg] 95 mm[Hg] M EDENT ([facility]) Respiratory rate 18 /min 18 /min MEDENT ( [facility]) Heart rate 110 /min 110 /min MEDENT ([facility] Body height 63 [in_i] 63 [in_i] MEDENT ([facility] 5'3" Body weight 105.00 [lb_av] 105.00 [lb_av] MEDEN T ([facility]) Diastolic blood pressure 54 mm[Hg] 54 mm[Hg] eCW1 ([facility]) Systolic blood pressure 90 mm[Hg] 90 mm[Hg] e CW1 ([facility]) Body temperature 97.8 [degF] 97.8 [degF] eCW1 ( [facility]) Respiratory rate 18 /min 18 /min eCW1 ([facility]) Heart rate 88 /min 88 /min eCW1 ([facility]) Body mass index (BMI) [Ratio] 17.33 kg/m2 17.33 kg/m2 eCW1 ([facility]) Body height 64 [in_us] 64 [in_us] eCW1 ([facility]) Body weight Measured 101 [lb_av] 101 [lb_av] eC W1 ([facility]) Body mass index (BMI) [Ratio] 18.0 kg/m2 18.0 k g/m2 MEDENT ([facility]) Diastolic blood pressure 55 mm[Hg] 55 mm[Hg] MEDENT ([facility]) Systolic blood pressure 95 mm[Hg] 95 mm[Hg] M EDENT ([facility]) Respiratory rate 20 /min 20 /min MEDENT ( [facility]) Heart rate 90 /min 90 /min [facility] Body height 62.75 [in_i] 62.75 [in_i] [facility] 5'2.75" Body weight 101.00 [lb_av] 101.00 [lb_av] MEDEN T ([facility] Diastolic blood pressure 80 mm[Hg] 80 mm[Hg] eCW1 ([facility]) Systolic blood pressure 120 mm[Hg] 120 mm[Hg] e CW1 ([facility]) Body mass index (BMI) [Ratio] 17.09 kg/m2 17.09 kg/m2 eCW1 ([facility]) Body height 64 [in_us] 64 [in_us] eCW1 ([facility]) Body weight Measured 99.6 [lb_av] 99.6 [lb_av] eCW1 ([facility]) Diastolic blood pressure 70 mm[Hg] 70 mm[Hg] eCW1 ([facility]) Systolic blood pressure 102 mm[Hg] 102 mm[Hg] e CW1 ([facility]) Body temperature 97.8 [degF] 97.8 [degF] eCW1 ( [facility]) Respiratory rate 20 /min 20 /min eCW1 ([facility]) Heart rate 134 /min 134 /min eCW1 ([facility]) Body mass index (BMI) [Ratio] 16.89 kg/m2 16.89 kg/m2 eCW1 ([facility]) Body height 64 [in_us] 64 [in_us] eCW1 ([facility]) Body weight Measured 98.4 [lb_av] 98.4 [lb_av] eCW1 ([facility]) Patient Treatment Plan of Care Planned Activity Planned Date Details Description Data Source (s) Sulfamethoxazole 800 MG / Trimethoprim 160 MG Oral Tab let [Bactrim] 10/26/2019 12:00:00 AM EDT eCW1 ([facility]) 200 ACTUAT Albuterol 0.09 MG/ACTUAT Metered Dose Inhal er [Proventil] 09/08/2019 12:00:00 AM EDT eCW1 ([facility]) 21 DAY Ethinyl Estradiol 0.077032 MG/HR / Etonogestrel 0.005 MG/HR Vaginal Ring [NuvaRing] 07/31/2019 12:00:00 AM EST eCW1 ([facility])
[2020-07-19 16:25] LABS: PARTIAL THROMBOPLASTIN TIME 29.8 SECONDS (24.2-38.5); PROTHROMBIN TIME 13.4 SECONDS (12.5-14.3)
[2020-07-19 16:28] LABS: D-DIMER QUANT 338.52 ng/ml (<500)
[2020-07-19 16:35] LABS: HCG, SERUM QUALITATIVE NEGATIVE (NEGATIVE)
[2020-07-19 16:42] LABS: ALBUMIN 3.6 GM/DL (3.2-5.2); ALT/SGPT 37 U/L (12-78); BILIRUBIN,DIRECT 0.1 MG/DL (0.0-0.2); BILIRUBIN,TOTAL 0.5 MG/DL (0.2-1.0); BLOOD UREA NITROGEN 8 MG/DL (7-18); CARBON DIOXIDE LEVEL 25 MEQ/L (21-32); CHLORIDE LEVEL 108 MEQ/L (98-107); CK-MB VALUE MASS < 1.0 NG/ML (<3.6); CPK CREATINE PHOSPHOKINASE 48 U/L (26-192); FREE T4 1.08 NG/DL (0.76-1.46); GLOMERULAR FILTRATION RATE > 60.0 (>60); GLUCOSE, FASTING 86 MG/DL (70-100); LIPASE 159 U/L (73-393); MAGNESIUM LEVEL 1.9 MG/DL (1.8-2.4); MB/CK RELATIVE INDEX 2.08 (< OR =4); PHOSPHORUS LEVEL 2.7 MG/DL (2.5-4.9); POTASSIUM SERUM 4.1 MEQ/L (3.5-5.1); SODIUM LEVEL 139 MEQ/L (136-145); THYROID STIMULATING HORMONE 0.881 uIU/ML (0.358-3.740); TOTAL PROTEIN 6.6 GM/DL (6.4-8.2); TROPONIN I < 0.02 NG/ML (< 0.10)
--- NOTE | 2020-07-19 17:23 | REP ---
INDICATION: palpitations COMPARISON: None. TECHNIQUE: PA/Lateral FINDINGS: Lungs: Clear, no infiltrate. Heart: Normal in size. Mediastinum: Mediastinal silhouette unremarkable. Pleural angles: Unremarkable.. Bones and soft tissues: Unremarkable. IMPRESSION: No acute pulmonary disease. <Electronically signed by Yunior Cabral > 07/19/20 [id number]
[2020-07-19] MEDS ORDERED: ISOVUE-370 76% 100ML VIAL As Ordered ONE (17:27)
--- NOTE | 2020-07-19 18:06 | REPVR ---
PROCEDURE INFORMATION: Exam: CT Angiography Neck With Contrast Exam date and time: 07/19/2020 5:40 PM Age: 29 years old Clinical indication: Other: Neck pain; Additional info: Neck pain R/O dissection TECHNIQUE: Imaging protocol: Computed tomography angiography of the neck with intravenous contrast. 3D rendering (Not supervised by radiologist): MIP and/or 3D reconstructed images were created by the technologist. Radiation optimization: All CT scans at this facility use at least one of these dose optimization techniques: automated exposure control; mA and/or kV adjustment per patient size (includes targeted exams where dose is matched to clinical indication); or iterative reconstruction. Contrast material: ISOVUE 370; Contrast volume: 75 ml; Contrast route: INTRAVENOUS (IV); COMPARISON: No relevant prior studies available. FINDINGS: Right common carotid artery: No stenosis. No dissection or occlusion. Right internal carotid artery: No stenosis of the extracranial segment. No dissection or occlusion. Right external carotid artery: No occlusion or stenosis of the origin. Right vertebral artery: No stenosis. No dissection or occlusion. Left common carotid artery: No stenosis. No dissection or occlusion. Left internal carotid artery: No stenosis of the extracranial segment. No dissection or occlusion. Left external carotid artery: No occlusion or stenosis of the origin. Left vertebral artery: No stenosis. No dissection or occlusion. Bones/joints: No acute fracture. Soft tissues: Normal. No significant soft tissue swelling. IMPRESSION: No carotid or vertebral artery stenosis or dissection. REFERENCES: NASCET CRITERIA. The degree of internal carotid artery stenosis is based on NASCET criteria. Normal is no stenosis. Mild is less than 50% stenosis. Moderate is 50-69% stenosis. Severe is 70% to 99% stenosis. Total occlusion is no detectable patent lumen. Electronically signed by: Tyrell Mauricio On 07/19/2020 18:05:58 PM
[2020-07-19] MEDS ORDERED: ONDANSETRON 4MG/2ML VIAL IV ONE (18:45)
[2020-07-19 20:00] VITALS: BP 106/58
--- NOTE | 2020-07-19 20:26 | ECGEPIP ---
[facility] - ED Test Date: 2020-07-19 Pat Name: ALEK ESPINOSA Department: Room: - Gender: Female Planning Aide: RICCARDO : 1990 Requested By: JING Maldonado Order Number: [id number] Reading MD: Jhonatan Rick Measurements Intervals [place] Rate: 105 P: 56 FL: 131 QRS: 95 QRSD: 79 T: 55 QT: 337 QTc: 446 Interpretive Statements SINUS TACHYCARDIA BORDERLINE RIGHT AXIS DEVIATION NO PRIORS FOR COMPARISON Electronically Signed on 07-19-2020 20:26:39 EST by Jhonatan Rick
== END 2020-07-19 20:12 | disposition home or self-care (01) ==
LOC: EDBD 14:38 → M ED 14:38
DX: R00.2 Palpitations (principal); R00.0 Tachycardia, unspecified; R55 Syncope and collapse; N80.9 Endometriosis, unspecified; K21.9 Gastro-esophageal reflux disease without esophagitis; K58.9 Irritable bowel syndrome, unspecified; G43.909 Migraine, unspecified, not intractable, without status migrainosus; N30.10 Interstitial cystitis (chronic) without hematuria; M41.9 Scoliosis, unspecified; F17.200 Nicotine dependence, unspecified, uncomplicated; Z88.0 Allergy status to penicillin; Z88.1 Allergy status to other antibiotic agents; Z91.018 Allergy to other foods; Z91.02 Food additives allergy status; Z91.012 Allergy to eggs; Z91.010 Allergy to peanuts; Z91.013 Allergy to seafood
CPT/HCPCS: 70498; 71046; 80048; 80076; 82550; 82553; 83690; 83735; 84100; 84439; 84443; 84484; 84703; 85025; 85379; 85610; 85730; 93005; 93041; 94760; 96361; 96374; 99285; J2405; Q9967

== ENCOUNTER → 2020-10-09 | Outpatient (REF) | payer BC, OTHER ==
[2020-10-09 17:26] LABS: MEAN CORPUSCULAR HEMOGLOBIN 28.9 pg (27.0-33.0); MEAN CORPUSCULAR HGB CONC 32.6 g/dl (32.0-36.5); MEAN CORPUSCULAR VOLUME 88.7 fl (80.0-96.0); PLATELET COUNT, AUTOMATED 261 10^3/uL (150-450); RED BLOOD COUNT 4.85 10^6/uL (4.00-5.40); WHITE BLOOD COUNT 7.9 10^3/uL (4.0-10.0)
[2020-10-09 18:33] LABS: HEPATITIS C VIRUS ABY INDEX < 0.0 INDEX (<0.8); HIV 1&2 SCREEN CENTAUR NEGATIVE (NEGATIVE)
== END ==
LOC: M PLALAB 14:58
PROVIDERS: ATTEND Specialist
DX: Z34.01 Encounter for supervision of normal first pregnancy, first trimester (principal)

== ENCOUNTER → 2020-11-01 | Outpatient (REF) | payer OTHER | LOC: M SFHCPLAZ 09:45 | PROVIDERS: ATTEND Family Medicine | DX: E55.9 Vitamin D deficiency, unspecified (principal) ==

== ENCOUNTER → 2020-11-06 | Outpatient (CLI) | payer OTHER | LOC: M PLALAB 15:42 | PROVIDERS: ATTEND Obstetrics & Gynecology | DX: Z34.81 Encounter for supervision of other normal pregnancy, first trimester (principal) ==

== ENCOUNTER → 2021-01-01 | Outpatient (CLI) | payer OTHER ==
--- NOTE | 2021-01-01 15:35 | REP ---
INDICATION: ANATOMY. COMPARISON: None. TECHNIQUE: Real-time sonographic evaluation of the gravid uterus performed. FINDINGS: Estimated gestational age is19 weeks 6 days, EDC 05/22/2021. Today's measurements indicate appropriate growth. Presentation: Breech Placenta posterior, grade 1, without evidence of placenta previa. heart rate is recorded at 152 beats per minute. Amniotic fluid is subjectively normal. Closed cervical length is measured at 3.9 cm. Biometry chart: BPD: 44 mm, 19 weeks 3 days, 37th percentile. HC: 171 mm, 19 weeks 5 days, 46th percentile AC: 142 mm, 19 weeks 4 days, 43rd percentile Femur length: 30 mm, 19 weeks 2 days, 35th percentile HC to AC ratio: 1.21, normal range 1.06-1.25. Estimated weight: 293g, 24th percentile. anatomy: Cranium: Grossly normal Lateral Ventricles/Choroid Plexus: Grossly normal Posterior Fossa/Cerebellum: Grossly normal Nose/lips/profile: Grossly normal Four chamber heart: Grossly normal Right ventricular outflow tract: Grossly normal Left ventricular outflow tract: Grossly normal Left-sided stomach: Grossly normal Kidneys: Grossly normal Bladder: Grossly normal Cord Insertion: Grossly normal 3 vessel cord: Grossly normal Spine: Grossly normal IMPRESSION: Viable single intrauterine gestation as above. <Electronically signed by Yunior Cabral > 01/01/21 2098
== END ==
LOC: M WHC 14:37
PROVIDERS: ATTEND Advanced Practice Midwife
DX: Z36.89 Encounter for other specified antenatal screening (principal); Z3A.15 15 weeks gestation of pregnancy

== ENCOUNTER → 2021-01-02 | Outpatient (CLI) | payer OTHER | LOC: M PLALAB 15:42 | PROVIDERS: ATTEND Obstetrics & Gynecology | DX: Z34.81 Encounter for supervision of other normal pregnancy, first trimester (principal) ==

== ENCOUNTER 2021-01-09 10:36 | Emergency (ER) | payer OTHER ==
[~2021-01-09] VITALS: Ht 162.6 cm; Wt 52.9 kg
[2021-01-09] MEDS ORDERED: NS 1,000 ML IV ONE ×2 (10:50→12:35)
[2021-01-09 11:15] LABS: BASO % 0.3 % (0.0-1.0); EOS # 0.5 10^3/uL (0.0-0.5); EOS % 4.8 % (0.0-3.0); HEMATOCRIT 32.5 % (36.0-47.0); HEMOGLOBIN 10.9 g/dl (12.0-15.5); LYMPH # 2.2 10^3/uL (1.5-5.0); LYMPH % 22.5 % (24.0-44.0); MEAN CORPUSCULAR HEMOGLOBIN 30.1 pg (27.0-33.0); MEAN CORPUSCULAR HGB CONC 33.5 g/dl (32.0-36.5); MEAN CORPUSCULAR VOLUME 89.8 fl (80.0-96.0); MONO # 0.8 10^3/uL (0.0-0.8); MONO % 8.2 % (2.0-8.0); NEUTROPHILS # 6.2 10^3/uL (1.5-8.5); NEUTROPHILS % 63.9 % (36.0-66.0); PLATELET COUNT, AUTOMATED 190 10^3/uL (150-450); RED BLOOD COUNT 3.62 10^6/uL (4.00-5.40); WHITE BLOOD COUNT 9.8 10^3/uL (4.0-10.0)
[2021-01-09] MEDS ORDERED: ONDANSETRON 4MG/2ML VIAL IV ONE (11:15)
[2021-01-09 11:46] LABS: BLOOD UREA NITROGEN 4 MG/DL (7-18); CARBON DIOXIDE LEVEL 24 MEQ/L (21-32); CHLORIDE LEVEL 111 MEQ/L (98-107); CREATININE FOR GFR 0.41 MG/DL (0.55-1.30); GLOMERULAR FILTRATION RATE > 60.0 (>60); GLUCOSE, FASTING 101 MG/DL (70-100); POTASSIUM SERUM 3.4 MEQ/L (3.5-5.1); SODIUM LEVEL 140 MEQ/L (136-145)
[2021-01-09 13:39] VITALS: BP 92/55
--- NOTE | 2021-01-10 04:24 | ECGEPIP ---
[facility] - ED Test Date: 2021-01-09 Pat Name: ALEK ESPINOSA Department: Room: - Gender: Female Card Game Operator: ESME : 1990 Requested By: Arcadio Quintanilla Order Number: [id number] Reading MD: Jhonatan Rick Measurements Intervals [place] Rate: 102 P: 51 TX: 128 QRS: 83 QRSD: 74 T: 51 QT: 350 QTc: 456 Interpretive Statements Sinus tachycardia SIMILAR TO 07/19/20 Electronically Signed on 01-10-2021 4:24:40 EDT by Jhonatan Rick
== END 2021-01-09 14:14 | disposition home or self-care (01) ==
LOC: M ED 10:36
DX: O99.352 Diseases of the nervous system complicating pregnancy, second trimester (principal); R55 Syncope and collapse; O21.9 Vomiting of pregnancy, unspecified; R56.9 Unspecified convulsions; O99.512 Diseases of the respiratory system complicating pregnancy, second trimester; J45.909 Unspecified asthma, uncomplicated; O99.342 Other mental disorders complicating pregnancy, second trimester; F32.9 Major depressive disorder, single episode, unspecified; F41.9 Anxiety disorder, unspecified; Z3A.20 20 weeks gestation of pregnancy
CPT/HCPCS: 80048; 85025; 93005; 93041; 96361; 96374; 99285; J2405

== ENCOUNTER → 2021-01-09 | Outpatient (CLI) | payer OTHER | LOC: M LAB 08:24 | PROVIDERS: ATTEND Obstetrics & Gynecology | DX: Z34.92 Encounter for supervision of normal pregnancy, unspecified, second trimester (principal); Z3A.00 Weeks of gestation of pregnancy not specified ==

== ENCOUNTER → 2021-02-03 | Outpatient (REF) | payer BC, OTHER | LOC: M SFHCWAGY 10:05 | PROVIDERS: ATTEND Advanced Practice Midwife | DX: Z34.82 Encounter for supervision of other normal pregnancy, second trimester (principal) ==

== ENCOUNTER → 2021-02-28 | Outpatient (REF) | payer BC, OTHER ==
[2021-02-28 17:39] LABS: APPEARANCE, URINE CLEAR (CLEAR); BILIRUBIN, URINE AUTO NEGATIVE (NEGATIVE); BLOOD, URINE BLOOD NEGATIVE (NEGATIVE); COLOR, URINE YELLOW (YELLOW); GLUCOSE, URINE (UA) AUTO NEGATIVE (NEGATIVE); KETONE, URINE AUTO NEGATIVE (NEGATIVE); LEUKOCYTE ESTERASE, URINE AUTO NEGATIVE (NEGATIVE); NITRITE, URINE AUTO NEGATIVE (NEGATIVE); PROTEIN, URINE AUTO NEGATIVE (NEGATIVE); SPECIFIC GRAVITY URINE AUTO 1.013 (1.002-1.035); UROBILINOGEN, URINE AUTO 0.2 mg/dL (0.0-2.0)
[2021-02-28 17:43] LABS: BACTERIA, URINE AUTO NEGATIVE (NEGATIVE); MUCUS, URINE SMALL (NEGATIVE); RBC, URINE AUTO 1 /HPF (0-3); SQUAMOUS EPITHELIAL CELL UR AU 0 /HPF (0-6); WBC, URINE AUTO 1 /HPF (0-3)
== END ==
LOC: M SFHCWAGY 16:56
PROVIDERS: ATTEND Advanced Practice Midwife
DX: N30.10 Interstitial cystitis (chronic) without hematuria (principal)

== ENCOUNTER → 2021-03-03 | Outpatient (CLI) | payer BC, OTHER ==
[~2021-03-03] MED LIST changes: +NOXI1TAB PO; +OMEP10CASR PO; +PERCOCET PO; +PREN1CHW6 PO; +TUMS750C22 PO; +ZOFR4TAB16 PO
[2021-03-03 09:22] LABS: HEMATOCRIT 34.1 % (36.0-47.0); HEMOGLOBIN 11.3 g/dl (12.0-15.5); MEAN CORPUSCULAR HEMOGLOBIN 29.8 pg (27.0-33.0); MEAN CORPUSCULAR HGB CONC 33.1 g/dl (32.0-36.5); PLATELET COUNT, AUTOMATED 199 10^3/uL (150-450); RED BLOOD COUNT 3.79 10^6/uL (4.00-5.40); WHITE BLOOD COUNT 10.4 10^3/uL (4.0-10.0)
== END ==
LOC: M LAB 08:13
PROVIDERS: ATTEND Advanced Practice Midwife
DX: Z34.82 Encounter for supervision of other normal pregnancy, second trimester (principal)

== ENCOUNTER → 2021-04-07 | Outpatient (CLI) | payer BC, OTHER ==
--- NOTE | 2021-04-07 18:25 | REP ---
INDICATION: UTERINE SIZE DATE DISCREPANCY. COMPARISON: 01/01/2021. TECHNIQUE: Real-time sonographic evaluation of the gravid uterus performed. FINDINGS: Estimated gestational age is33 weeks 4 days, EDC 10/20/2020. Today's measurements indicate appropriate growth. Presentation: Breech Placenta posterior, grade 2, without evidence of placenta previa. heart rate is recorded at 160 beats per minute. Amniotic fluid is subjectively normal. ELAINA 11.4, normal range 8.2-24.7. SD ratio umbilical artery 2.41, normal 1.76-3.72. RI 0.59, normal 0.47-0.73. Biometry chart: BPD: 78 mm, 31 weeks 2 days, 18th percentile. HC: 303 mm, 33 weeks 5 days, 52nd percentile AC: 290 mm, 33 weeks 0 days, 41st percentile Femur length: 64 mm, 33 weeks 1 days, 43rd percentile HC to AC ratio: 1.05, normal range 0.95-1.13. Estimated weight: 2081g, 25th percentile. IMPRESSION: Viable single intrauterine gestation as above. <Electronically signed by Yunior Cabral > 04/07/21 1737
== END ==
LOC: M WHC 14:32
PROVIDERS: ATTEND Obstetrics & Gynecology
DX: O26.843 Uterine size-date discrepancy, third trimester (principal); Z3A.34 34 weeks gestation of pregnancy

== ENCOUNTER → 2021-04-24 | Outpatient (REF) | payer BC, MEDICAID | LOC: M SFHCWAGY 18:08 | PROVIDERS: ATTEND Advanced Practice Midwife | DX: Z36.89 Encounter for other specified antenatal screening (principal); Z3A.36 36 weeks gestation of pregnancy ==

== ENCOUNTER → 2021-04-30 | Outpatient (CLI) | payer BC, MEDICAID ==
[~2021-04-30] MED LIST changes: -NOXI1TAB PO; -OMEP10CASR PO; -PERCOCET PO; -PREN1CHW6 PO; -TUMS750C22 PO; -ZOFR4TAB16 PO
--- NOTE | 2021-04-30 13:52 | REP ---
INDICATION: SPOTTING COMPLICATING PREG, 3RD TRIMESTER COMPARISON: 04/07/2021 TECHNIQUE: Transabdominal obstetrical ultrasound with color Doppler evaluation. FINDINGS: Examination demonstrates a single live intrauterine in breech presentation. motion is identified by technologist. Placenta is noted posterior and grade 2 without evidence for placenta previa or abruption. Amniotic fluid volume is normal. Cervix measures 3.0 cm in length and appears closed.. Selected gestational age: 36 weeks 6 days with EFRA of 921. FHR equals 134 beats per minute. ELAINA: 8.3 cm Umbilical artery SD ratio: 2.55 IMPRESSION: Single live advanced gestation in breech presentation. No evidence for previa. <Electronically signed by Juan Morales > 04/30/21 1547
== END ==
LOC: M WHC 13:03
PROVIDERS: ATTEND Advanced Practice Midwife
DX: O26.853 Spotting complicating pregnancy, third trimester (principal)

== ENCOUNTER 2021-05-02 08:55 | Outpatient (CLI) | payer BC, MEDICAID ==
[~2021-05-02] VITALS: Ht 160 cm; Wt 61.1 kg
[2021-05-02] MEDS ORDERED: LACTATED RINGER'S 1000 ML IV ONE (09:25)
[2021-05-02] MEDS ORDERED: LR 1,000 ML IV SCH (09:25)
[2021-05-02 09:47] VITALS: BP 108/58
[2021-05-02] MEDS ORDERED: ZOFR4TAB16 PO (09:55)
[2021-05-02] MEDS ORDERED: OMEP10CASR PO (09:55)
[2021-05-02] MEDS ORDERED: TUMS750C22 PO (09:55)
[2021-05-02] MEDS ORDERED: PREN1CHW6 PO (09:55)
[2021-05-02] MEDS ORDERED: NOXI1TAB PO (09:55)
[2021-05-02] MEDS ORDERED: HOME MED LIST COMPLETE! XX SCH (10:00)
[2021-05-02 11:21] VITALS: BP 117/61
[2021-05-02] MEDS ORDERED: TERBUTALINE SULFATE 1 MG/ML VIAL (J3105) SC STA (12:24)
[2021-05-02 12:30] VITALS: BP 133/61
[2021-05-02 12:49] VITALS: BP 134/82
--- NOTE | 2021-05-02 12:55 | IPNPDOC ---
Text Note Date of Service The patient was seen on 05/02/21. NOTE Pt is a 30yo at 37w1d who presents for scheduled ECV. Pt has a reactive NST. Reviewed risks/benefits/alternatives. Informed consent obtained. Pt given turb 0.25mg IM prior to procedure. BSUS shows head in the maternal left upper quadrant with spine up. Attempt was made to rotate fetus clockwise without success. FHTs in 160s. Attempt was made to rotate counter clockwise, fetus rotated to head in the right upper quadrant. However, patient unable to tolerate external pressure. Frequent stops had to be made due to patient discomfort. FHTs in the 160s throughout the whole procedure. Pt unable to tolerate any further attempts to rotate. BSUS at the end of the procedure shows fetus in the avelino breech position. Pt placed back on the monitor for prolonged monitoring. Reviewed labor precautions and kick counts. After prolonged monitoring with reassuring FHT, pt is ok to be discharged home with routine follow up and plan for delivery by section. VS,Fishbone, I+O VS, Fishbone, I+O Vital Signs Date Time Temp Pulse Resp B/P (MAP) Pulse Ox O2 Delivery O2 Flow Rate FiO2 05/02/21 11:21 82 18 117/61 (79) 05/02/21 09:47 98.2 NAGA WINSTON MD May 02, 2021 12:55
[2021-05-02] MEDS ORDERED: ONDANSETRON 4MG/2ML VIAL IV ONE (14:40)
[2021-05-02 15:13] VITALS: BP 120/65
--- NOTE | 2021-05-02 15:16 | IPNPDOC ---
Text Note Date of Service The patient was seen on 05/02/21. NOTE Outpatient 30 yo EFRA 05/22/2021. Presents at 37w1d for external cephalic version. No distress CAt I tracing Bedside sono confirms persistent breech presentation. Will inform physician Magi Tinajero CNM May 02, 2021 09:24
--- NOTE | 2021-05-02 15:18 | IPNPDOC ---
Text Note Date of Service The patient was seen on 05/02/21. NOTE Outpatient Cat I tracing, rare UC after a number hours of monitoring No LOF, bleeding. Discharged home. Pt instructed to keep appt next week pathology laboratory aides teacher notified to schedule primary @ 39wks VS,Fishbone, I+O VS, Fishbone, I+O Vital Signs Date Time Temp Pulse Resp B/P (MAP) Pulse Ox O2 Delivery O2 Flow Rate FiO2 05/02/21 12:49 144 20 134/82 (99) 05/02/21 09:47 98.2 Magi Tinajero CNM May 02, 2021 15:18
== END 2021-05-02 15:35 | disposition home or self-care (01) ==
LOC: M LDO 08:55
PROVIDERS: ATTEND Advanced Practice Midwife
DX: O32.9XX0 Maternal care for malpresentation of fetus, unspecified, not applicable or unspecified (principal); Z3A.37 37 weeks gestation of pregnancy
CPT/HCPCS: 59025; 59412; 76815; 96372; 96374; G0378; G0463; J2405; J3105

== ENCOUNTER → 2021-05-10 | Outpatient (CLI) | payer BC, MEDICAID ==
[~2021-05-10] MED LIST changes: +NOXI1TAB PO; +OMEP10CASR PO; +PERCOCET PO; +PREN1CHW6 PO; +TUMS750C22 PO; +ZOFR4TAB16 PO
== END ==
LOC: M LABSMTC 11:19
PROVIDERS: ATTEND Anesthesiology
DX: Z01.812 Encounter for preprocedural laboratory examination (principal); Z11.52 Encounter for screening for COVID-19

== ENCOUNTER 2021-05-12 10:46 | Inpatient (IN) | payer BC, MEDICAID ==
[2021-05-12] VITALS (10 sets, daily range): BP systolic 107–132; BP diastolic 55–92
[~2021-05-12] VITALS: Ht 162.6 cm; Wt 62.5 kg
[~2021-05-12 10:46] MED LIST changes: -PERCOCET PO
[2021-05-12] MEDS ORDERED: HOME MED LIST COMPLETE! XX SCH (11:20)
--- NOTE | 2021-05-12 13:36 | REP ---
INDICATION: questionable rupture, breech; just need ELAINA. COMPARISON: 04/30/2021. TECHNIQUE: Real-time sonographic evaluation of gravid uterus performed. FINDINGS: There is a single living intrauterine gestation, the estimated gestational age is 38 weeks 4 days, EDC 05/22/2021. position is breech. Placenta is posterior and grade 3 with no previa. heart rate is 146 beats per minute. There is significant oligohydramnios. ELAINA is 1.8, normal range 7.2-23.1. SD ratio umbilical artery 2.52, normal 1.53-3.32. RI 0.60, normal 0.41-0.69. movement and breathing motion is visualized. The cervix is not well visualized. IMPRESSION: Significant oligohydramnios, ELAINA 1.8 as discussed above. <Electronically signed by Yunior Cabral > 05/12/21 1562
--- OUTSIDE RECORDS SUMMARY | 2021-05-12 13:55 | CCD ---
Author Author [facility] Organization [facility] Address Unknown Phone Unavailable Care Team Providers Care Sponge Press Operator Name Role Phone Amelia Diego Unavailable PROBLEMS Type Condition ICD9-CM Code [id number] Code Onset Dates Condition S tatus W/U Status Risk SNOMED Code Notes Problem GERD without esophagitis K21.9 Active confirmed 408565122 Problem Mild intermittent asthma without complication J45. 20 Active confirmed 936454026 Problem Multiple food allergies Z91.018 Active confirmed 832009478 Problem Dyspareunia in female N94.10 Active confirmed 68228996 Problem Interstitial cystitis N30.10 Active confirmed 421495279 Problem Anxiety disorder, unspecified F41.9 Active confirm ed 974796926 Problem Multiple allergies Z88.9 Active confirmed 6 91006307 Problem Cigarette nicotine dependence in remission F17.211 Active confirmed 157225372 Problem Vitamin D deficiency E55.9 Active confirmed 98231167 Problem Supervision of other normal Z34.80 Ac tive confirm 520953127 ALLERGIES Allergen (clinical drug ingredient) Drug/Non Drug Allergy do cumented on EMR Reaction Allergy Type Onset Date Status amoxicillin Amoxicillin(NDC Code:[address]-44) RASH/FEVER Drug Aller gy Active PORK, BLACK PEPPER Unknown Non Drug Allergy Active fesoterodine Toviaz(ND Code:[address]-86) ANAPHYLAXIS Drug Allergy Active DAIRY PROTEIN, WHEAT, CORN, CHOLCOLATE, PEANUTS, AL Un known Non Drug Allergy Active FISH (OTHER THAN SHELLFISH) UNKNOWN Non Drug Allergy Active BROWN RICE, ALMONDS, TOMATOES, WHITE POTATOES, SOY, Un known Non Drug Allergy Active ENCOUNTERS from 1990 to 2021-05-05 Encounter Location Date Provider Diagnosis [address] [phone] [place] [address] Apr, Amelia Diego IMMUNIZATIONS Vaccine Route Administration Date Status TDAP 0.5mL Boostrix IM Intramuscular Mar 06, 2021 Administere d SOCIAL HISTORY Tobacco Use: Social History Observation Description Date Details (start date - stop date) Former Smoker Sex Assigned At : Social History Observation Description Sex Assigned At Unknown Education: Question Answer Notes Level of Education: Finished High School Audit Question Answer Notes Total Score: 0 Interpretation: Alcohol Education Language: Question Answer Notes Languages spoken: Occitan Worship: Question Answer Notes Worship 08 [employer] No judaism beliefs that would impact health care. Drug and Alcohol Question Answer Notes Total Score: 0 Interpretation: No problems reported Alcohol Screening: Question Answer Notes Did you have a drink containing alcohol in the past year? No Points 0 Interpretation Negative Tobacco Use: Question Answer Notes Are you a: former smoker REASON FOR REFERRAL No Information VITAL SIGNS No information MEDICATIONS Medication SIG (Take, Route, Frequency, Duration) Notes Start Da te End Date Status 28-0.8 MG 1 tablet Orally Once a day Active Ondansetron 4 MG 1 tablet on the tongue and a llow to dissolve Orally Once a day for 30 day(s) Sep, Active Colace 100 MG 1 capsule as needed Orally Once a day for 30 day(s) Active Tamiflu 75 MG 1 capsule Orally Twice a day for 5 day(s) Mar, Not-Taking Pyridium 100 MG 1 tablet after meals Orally Three times a day fo r 4 days Jan, Not-Taking Omeprazole 20 MG 1 capsule 30 minutes before morning meal Orally Once a day for 30 day(s) Jan, Active Zoloft 25 MG 1 tablet Orally Once a day for 30 day(s) 2020 Active Vitamin B6 Active Unisom SleepTabs Not-Taki ng EpiPen 2-Juan 0.3 MG/0.3ML as directed Injection October, Active PROCEDURES No Information RESULTS No Results REASON FOR VISIT COVID exposure MEDICAL (GENERAL) HISTORY Type Description Date Medical History Allergies, seasonal/medication/food Medical History Asthma, mild persistent - Dr. Clinton cuello Medical History Stress-induced seizures Medical History Scoliosis Medical History Migraines Medical History Depression, anxiety Medical History Chronic R hip and low back pain Medical History GERD Medical History IBS Medical History Endometriosis Medical History Intestitial cystitis/microsc opic hematuria - saw [facility] in the past Medical History Palpitations, syncope - Dr. Sharma Medical History Former smoker, quit 09/2020 Surgical History adenoidectomy as a small child Surgical History cystoscopy - [facility] 2013 Surgical History tonsillectomy - [facility] Dr Augusto hays 2016 Surgical History Bilateral repair of TM perforations - [facility] 2018 Surgical History Bladder expansion Hospitalization History No know Hospitalization history Goals Section No Information Health Concerns No Information MEDICAL EQUIPMENT No Information MENTAL STATUS No Information FUNCTIONAL STATUS No Information ASSESSMENTS No Information PLAN OF TREATMENT Next Appt Details Provider Name:Magi Tinajero, 2021-05-07 10:00:00 AM, [address] [place] [address], , [place], [address], Provider Name:Magi Tinajero, 2021-05-14 03:40:00 PM, [address] [place] [address], , [place], [address], Provider Name:Magi Tinajero, 2021-05-21 03:00:00 PM, [address] [place] [address], , [place], [address], Provider Name:Yina Sarabia, 2021-08-05 01:00:00 PM, [address] [place] [address], , [place], [address], Insurance Providers Payer Name Payer Address Payer Phone Insured Name Patient Relati onship to Insured Coverage Start Date Coverage End Date MEDICAID Aditive [address] [facility] [address] ALEK ESPINOSA self BCBS [place]arily[place] PPO [id number] [facility] [employer] [facility] [place] [address] Efren Espinosa
--- OUTSIDE RECORDS SUMMARY | 2021-05-12 13:55 | CCD ---
Author Author [facility] Organization [facility] Address Unknown Phone Unavailable Care Team Providers Care Processing Analyst Name Role Phone Amelia Diego Unavailable PROBLEMS Type Condition ICD9-CM Code [id number] Code Onset Dates Condition S tatus W/U Status Risk SNOMED Code Notes Problem GERD without esophagitis K21.9 Active confirmed 071274158 Problem Mild intermittent asthma without complication J45. 20 Active confirmed 827285162 Problem Multiple food allergies Z91.018 Active confirmed 976094899 Problem Dyspareunia in female N94.10 Active confirmed 95324308 Problem Interstitial cystitis N30.10 Active confirmed 974802127 Problem Anxiety disorder, unspecified F41.9 Active confirm ed 622397337 Problem Multiple allergies Z88.9 Active confirmed 6 41192818 Problem Cigarette nicotine dependence in remission F17.211 Active confirmed 247591983 Problem Vitamin D deficiency E55.9 Active confirmed 22391249 Problem Supervision of other normal Z34.80 Ac tive confirm 897077962 ALLERGIES Allergen (clinical drug ingredient) Drug/Non Drug Allergy do cumented on EMR Reaction Allergy Type Onset Date Status amoxicillin Amoxicillin(NDC Code:[address]-06) RASH/FEVER Drug Aller gy Active PORK, BLACK PEPPER Unknown Non Drug Allergy Active fesoterodine Toviaz(ND Code:[address]-58) ANAPHYLAXIS Drug Allergy Active DAIRY PROTEIN, WHEAT, CORN, CHOLCOLATE, PEANUTS, AL Un known Non Drug Allergy Active FISH (OTHER THAN SHELLFISH) UNKNOWN Non Drug Allergy Active BROWN RICE, ALMONDS, TOMATOES, WHITE POTATOES, SOY, Un known Non Drug Allergy Active ENCOUNTERS from 1990 to 2021-05-03 Encounter Location Date Provider Diagnosis [facility] [address] [facility] [phone] [place] [address] Mar, Amelia Johnathon Encounter for superv ision of other normal , third trimester Z34.83 and 34 weeks gestation of Z3A.34 IMMUNIZATIONS Vaccine Route Administration Date Status TDAP [...] Education Language: Question Answer Notes Languages spoken: Divehi Voodoo: Question Answer Notes Voodoo 08 Confucianism No congregation beliefs that would impact health care. Drug and Alcohol Question Answer Notes Total Score: 0 Interpretation: No problems reported Alcohol Screening: Question Answer Notes Did you have a drink containing alcohol in the past year? No Points 0 Interpretation Negative Tobacco Use: Question Answer Notes Are you a: former smoker REASON FOR REFERRAL No Information VITAL SIGNS Weight 131.2 lbs Mar, Weight-kg 59.51 kg Mar, Height 64 in Mar, BMI 22.52 kg/m2 Mar, Blood pressure systolic 102 mm Hg Mar, Blood pressure diastolic 60 mm Hg Mar, MEDICATIONS Medication SIG (Take, Route, Frequency, Duration) [...] Orally Once a day for 30 day(s) 11 2020 Active Vitamin B6 Active Unisom SleepTabs Not-Taki ng EpiPen 2-Juan 0.3 MG/0.3ML as directed Injection October, Active PROCEDURES No Information RESULTS No Results REASON FOR VISIT 2 wk pn MEDICAL (GENERAL) HISTORY Type Description Date Medical History Allergies, seasonal/medication/food Medical History Asthma, mild persistent - Dr. Clinton cuello Medical History Stress-induced seizures Medical History Scoliosis Medical History Migraines Medical History Depression, anxiety Medical History Chronic R hip and low back pain Medical History GERD Medical History IBS Medical History Endometriosis Medical History Intestitial cystitis/microsc opic hematuria - saw [facility] Urology in the past Medical History Palpitations, syncope - Dr. Sharma Medical History Former smoker, quit 09/2020 Surgical History adenoidectomy as a small child Surgical History cystoscopy - [place] 2013 Surgical History tonsillectomy - [facility] Dr Augusto hays 2016 Surgical History Bilateral repair of TM perforations - [facility] 2017 Surgical History Bladder expansion Hospitalization History No know Hospitalization history Goals Section No Information Health Concerns No Information MEDICAL EQUIPMENT No Information MENTAL STATUS No Information FUNCTIONAL STATUS No Information ASSESSMENTS Encounter Date Diagnosis Assessment Notes Treatment Notes Treatm ent Clinical Notes Mar, Encounter for supervision of other normal , third trimester (ICD-10 - Z34.83) Mar, 34 weeks gestation of (ICD-10 - Z3A.34 ) PLAN OF TREATMENT Next Appt Details 2 Weeks Reason:PN Provider Name:Magi Tinajero, 2021-05-07 10:00:00 AM, [address] [place] [address] , [place], [address], Provider Name:Magi Tinajero, 2021-05-14 03:40:00 PM, [address] [place] [address] , [place], [address], Provider Name:Magi Tinajero, 2021-05-21 03:00:00 PM, [address] [place] [address] , [place], [address], Provider Name:Yina Sarabia, 2021-08-05 01:00:00 PM, [address] [place] [address] , [place], [address], Follow Up:2 WeeksPN Insurance Providers Payer Name Payer Address Payer Phone Insured Name Patient Relati onship to Insured Coverage Start Date Coverage End Date BCANIYAH NEVAREZ PPO [phone] [facility] [place] [address] Efren Espinosa MEDICAID [employer] [address] [facility] [id number] ALEK ESPINOSA self
--- OUTSIDE RECORDS SUMMARY | 2021-05-12 13:55 | CCD ---
Author Author [facility] Organization [facility] Address Unknown Phone Unavailable Care Team Providers Care Director Of It Operations Name Role Phone Johnathon Amelia Unavailable PROBLEMS Type Condition ICD9-CM Code ULT22-VX Code Onset Dates Condition S tatus W/U Status Risk SNOMED Code Notes Problem Interstitial cystitis N30.10 Active confirmed 191664745 Problem GERD without esophagitis K21.9 Active confirmed 245439362 Problem Vitamin D deficiency E55.9 Active confirmed 74289357 Problem Supervision of other normal Z34.80 Ac tive confirm 089918086 Problem Mild intermittent asthma without complication J45. 20 Active confirmed 434438662 Problem Multiple food allergies Z91.018 Active confirmed 985948167 Problem Multiple allergies Z88.9 Active confirmed 6 23502355 Problem Cigarette nicotine dependence in remission F17.211 Active confirmed 246468527 ALLERGIES Allergen (clinical drug ingredient) Drug/Non Drug Allergy do cumented on EMR Reaction Allergy Type Onset Date Status amoxicillin Amoxicillin(NDC Code:[address]-56) RASH/FEVER Drug Aller gy Active PORK, BLACK PEPPER Unknown Non Drug Allergy Active fesoterodine Toviaz(NDC Code:[address]-15) ANAPHYLAXIS Drug Allergy Active DAIRY PROTEIN, WHEAT, CORN, CHOLCOLATE, PEANUTS, AL Un known Non Drug Allergy Active FISH (OTHER THAN SHELLFISH) UNKNOWN Non Drug Allergy Active BROWN RICE, ALMONDS, TOMATOES, WHITE POTATOES, SOY, Un known Non Drug Allergy Active ENCOUNTERS from 1990 to 2021-03-20 Encounter Location Date Provider Diagnosis [facility] [address] [place] [phone] [place] [address] Feb, Amelia Diego 29 weeks gestation o f Z3A.29 ; Encounter for supervision of normal in multigravida in third trimester Z34.83 and Encounter for immunization Z23 IMMUNIZATIONS Vaccine Route Administration Date Status TDAP [...] Education Language: Question Answer Notes Languages spoken: Georgian Sikhism: Question Answer Notes Sikhism 08 Sabianism No baptism beliefs that would impact health care. Drug and Alcohol Question Answer Notes Total Score: 0 Interpretation: No problems reported Alcohol Screening: Question Answer Notes Did you have a drink containing alcohol in the past year? No Points 0 Interpretation Negative Tobacco Use: Question Answer Notes Are you a: former smoker REASON FOR REFERRAL No Information VITAL SIGNS Weight 125.8 lbs Feb, Height 64 in Feb, BMI 21.594 kg/m2 Feb, Blood pressure systolic 96 mm Hg Feb, Blood pressure diastolic 60 mm Hg Feb, MEDICATIONS Medication SIG (Take, Route, Frequency, Duration) Notes Start Da te End Date Status EpiPen 2-Juan 0.3 MG/0.3ML as directed Injection October, Active Unisom SleepTabs Active Vitamin B6 Active Pyridium 100 MG 1 tablet after meals Orally Three times a day fo r 4 days Jan, Active Colace 100 MG 1 capsule as needed Orally Once a day for 30 day(s) Active Omeprazole 20 MG 1 capsule 30 minutes before morning meal Orally Once a day for 30 day(s) Jan, Active Ondansetron 4 MG 1 tablet on the tongue and a llow to dissolve Orally Once a day for 30 day(s) Sep, Active 28-0.8 MG 1 tablet Orally Once a day Active PROCEDURES from 1990 to 2021-03-20 Procedure Date Ordered Result Body Site Imm: Boostrix 0.5mL IM TDAP 2021-03-06 N/A RESULTS No Results REASON FOR VISIT 4 WK PN MEDICAL (GENERAL) HISTORY Type Description Date Medical History Allergies, seasonal/medication/food Medical History Asthma, mild persistent - Dr. Chrostowsk i Medical History Stress-induced seizures Medical History Scoliosis Medical History Migraines Medical History Depression, anxiety Medical History Chronic R hip and low back pain Medical History GERD Medical History IBS Medical History Endometriosis Medical History Intestitial cystitis/microsc opic hematuria - saw [facility] Urology in the past Medical History Palpitations, syncope - Dr. Sharma Medical History Former smoker, quit 09/2020 Surgical History adenoidectomy as a small child Surgical History cystoscopy - [place] 2013 Surgical History tonsillectomy - [facility] Dr Augusto hays 2016 Surgical History Bilateral repair of TM perforations - [facility] 2017 Surgical History Bladder expansion Hospitalization History No know Hospitalization history Goals Section No Information Health Concerns No Information MEDICAL EQUIPMENT No Information MENTAL STATUS No Information FUNCTIONAL STATUS No Information ASSESSMENTS Encounter Date Diagnosis Assessment Notes Treatment Notes Treatm ent Clinical Notes Feb, 29 weeks gestation of (ICD-10 - Z3A.29 ) Feb, Encounter for supervision of normal in multigravida in third trimester (ICD-10 - Z34.83) Feb, Encounter for immunization (ICD-10 - Z23) PLAN OF TREATMENT Next Appt Details 3 Weeks Reason:PN Provider Name:Annabella Helms, 2021-03-14 4 03:20:00 PM, [address] [place] [address] , [place], [address], Provider Name:Amelia Diego, 2021-04-10 03:40:00 PM, [address] [place] [address] , [place], [address], Provider Name:Yina Sarabia, 2021-08-05 01:00:00 PM, [address] [place] [address] , [place], [address], Follow Up:3 WeeksPN Insurance Providers Payer Name Payer Address Payer Phone Insured Name Patient Relati onship to Insured Coverage Start Date Coverage End Date BCBS EVGENY NEVAREZ PPO [phone] [facility] [employer] [place] [address] Efren Espinosa CORPORATE CLAIMS DEPT [address] [place] [address] [phone] ALEK ESPINOSA self
--- OUTSIDE RECORDS SUMMARY | 2021-05-12 13:55 | CCD ---
Author Author [facility] Organization [facility] Address Unknown Phone Unavailable Care Team Providers Care Contract Officer Name Role Phone Magi Tinajero Unavailable PROBLEMS Type Condition ICD9-CM Code QTT17-VX Code Onset Dates Condition S tatus W/U Status Risk SNOMED Code Notes Problem Interstitial cystitis N30.10 Active confirmed 965888392 Problem GERD without esophagitis K21.9 Active confirmed 021951135 Problem Vitamin D deficiency E55.9 Active confirmed 75913963 Problem Supervision of other normal Z34.80 Ac tive confirm 452825869 Problem Mild intermittent asthma without complication J45. 20 Active confirmed 693137981 Problem Multiple food allergies Z91.018 Active confirmed 115204655 Problem Multiple allergies Z88.9 Active confirmed 6 99288706 Problem Cigarette nicotine dependence in remission F17.211 Active confirmed 018493446 ALLERGIES Allergen (clinical drug ingredient) Drug/Non Drug Allergy do cumented on EMR Reaction Allergy Type Onset Date Status amoxicillin Amoxicillin(NDC Code:[address]-47) RASH/FEVER Drug Aller gy Active PORK, BLACK PEPPER Unknown Non Drug Allergy Active fesoterodine Toviaz(ND Code:[address]-13) ANAPHYLAXIS Drug Allergy Active DAIRY PROTEIN, WHEAT, CORN, CHOLCOLATE, PEANUTS, AL Un known Non Drug Allergy Active FISH (OTHER THAN SHELLFISH) UNKNOWN Non Drug Allergy Active BROWN RICE, ALMONDS, TOMATOES, WHITE POTATOES, SOY, Un known Non Drug Allergy Active ENCOUNTERS from 1990 to 2021-03-21 Encounter Location Date Provider Diagnosis [facility] [address] [place] [address] [place] [address] Mar, Magi Eastmanlandigham IMMUNIZATIONS Vaccine Route Administration Date Status TDAP [...] Education Language: Question Answer Notes Languages spoken: Mohawk Congregation: Question Answer Notes Congregation 08 Yazdanism No yazidism beliefs that would impact health care. Drug [...] tablet Orally Once a day Active PROCEDURES No Information RESULTS No Results REASON FOR VISIT referral MEDICAL (GENERAL) HISTORY Type Description Date Medical History Allergies, seasonal/medication/food Medical History Asthma, mild persistent - Dr. Clinton cuello Medical History Stress-induced seizures Medical History Scoliosis Medical History Migraines Medical History Depression, anxiety Medical History Chronic R hip and low back pain Medical History GERD Medical History IBS Medical History Endometriosis Medical History Intestitial cystitis/microsc opic hematuria - saw [facility] Urology in the past Medical History Palpitations, syncope - Dr. Sharma Medical History Former smoker, quit 09/2020 Surgical History adenoidectomy as a small child Surgical History cystoscopy - [place] 2013 Surgical History tonsillectomy - [facility] Dr Grous h 2017 Surgical History Bilateral repair of TM perforations - [facility] 2018 Surgical History Bladder expansion Hospitalization History No know Hospitalization history Goals Section No Information Health Concerns No Information MEDICAL EQUIPMENT No Information MENTAL STATUS No Information FUNCTIONAL STATUS No Information ASSESSMENTS No Information PLAN OF TREATMENT Next Appt Details Provider Name:Annabella Helms, 2021-03-14 4 03:20:00 PM, [address] [place] [address], , [place], [address], Provider Name:Amelia Diego, 2021-04-10 03:40:00 PM, [address] [place] [address], , [place], [address], Provider Name:Yina Sarabia, 2021-08-05 01:00:00 PM, [address] [place] [address], , [place], [address], Insurance Providers Payer Name Payer Address Payer Phone Insured Name Patient Relati onship to Insured Coverage Start Date Coverage End Date [facility] [place] [facility] [phone] [facility] [employer] [place] [address] Efren Espinosa CORPORATE CLAIMS DEPT [address] [facility] [phone] ALEK ESPINOSA self
--- OUTSIDE RECORDS SUMMARY | 2021-05-12 13:55 | CCD ---
Author Author [facility] Organization [facility] Address Unknown Phone Unavailable Care Team Providers Care Archivist Economic History Name Role Phone Magi Tinajero Unavailable PROBLEMS Type Condition ICD9-CM Code OXL99-LU Code Onset Dates Condition S tatus W/U Status Risk SNOMED Code Notes Problem GERD without esophagitis K21.9 Active confirmed 847787804 Problem Mild intermittent asthma without complication J45. 20 Active confirmed 370496448 Problem Multiple food allergies Z91.018 Active confirmed 379429531 Problem Dyspareunia in female N94.10 Active confirmed 68717358 Problem Interstitial cystitis N30.10 Active confirmed 823850280 Problem Anxiety disorder, unspecified F41.9 Active confirm ed 290939527 Problem Multiple allergies Z88.9 Active confirmed 6 98363454 Problem Cigarette nicotine dependence in remission F17.211 Active confirmed 022352805 Problem Vitamin D deficiency E55.9 Active confirmed 52664425 Problem Supervision of other normal Z34.80 Ac tive confirm 615590662 ALLERGIES Allergen (clinical drug ingredient) Drug/Non Drug Allergy do cumented on EMR Reaction Allergy Type Onset Date Status amoxicillin Amoxicillin(NDC Code:[address]-03) RASH/FEVER Drug Aller gy Active PORK, BLACK PEPPER Unknown Non Drug Allergy Active fesoterodine Toviaz(ND Code:[address]-77) ANAPHYLAXIS Drug Allergy Active DAIRY PROTEIN, WHEAT, CORN, CHOLCOLATE, PEANUTS, AL Un known Non Drug Allergy Active FISH (OTHER THAN SHELLFISH) UNKNOWN Non Drug Allergy Active BROWN RICE, ALMONDS, TOMATOES, WHITE POTATOES, SOY, Un known Non Drug Allergy Active ENCOUNTERS from 1990 to 2021-05-01 Encounter Location Date Provider Diagnosis [facility] [address] [facility] [phone] [place] [address] Apr, Magi Tinajero Malpresentation o f fetus, antepartum O32.9XX0 and 36 weeks gestation of Z3A.36 IMMUNIZATIONS Vaccine Route Administration Date Status TDAP [...] Education Language: Question Answer Notes Languages spoken: Lebanese Yazdanism: Question Answer Notes Yazdanism 08 Congregational No temple beliefs that would impact health care. Drug and Alcohol Question Answer Notes Total Score: 0 Interpretation: No problems reported Alcohol Screening: Question Answer Notes Did you have a drink containing alcohol in the past year? No Points 0 Interpretation Negative Tobacco Use: Question Answer Notes Are you a: former smoker REASON FOR REFERRAL No Information VITAL SIGNS Weight 135.2 lbs Apr, Weight-kg 61.33 kg Apr, Height 64 in Apr, BMI 23.207 kg/m2 Apr, Blood pressure systolic 104 mm Hg Apr, Blood pressure diastolic 64 mm Hg Apr, MEDICATIONS Medication SIG (Take, [...] RESULTS No Results REASON FOR VISIT 1 wk pn MEDICAL (GENERAL) HISTORY Type Description Date Medical History Allergies, seasonal/medication/food Medical History Asthma, mild persistent - Dr. Clinton cuello Medical History Stress-induced seizures Medical History Scoliosis Medical History Migraines Medical History Depression, anxiety Medical History Chronic R hip and low back pain Medical History GERD Medical History IBS Medical History Endometriosis Medical History Intestitial cystitis/microsc opic hematuria - saw [facility] Urology in the past Medical History Palpitations, syncope - Dr. Sharma Medical History Former smoker, quit 09/2020 Surgical History adenoidectomy as a small child Surgical History cystoscopy - [place] 2013 Surgical History tonsillectomy - [facility] Dr Augusto hays 2016 Surgical History Bilateral repair of TM perforations - [facility] 2017 Surgical History Bladder expansion Hospitalization History No know Hospitalization history Goals Section No Information Health Concerns No Information MEDICAL EQUIPMENT No Information MENTAL STATUS No Information FUNCTIONAL STATUS No Information ASSESSMENTS Encounter Date Diagnosis Assessment Notes Treatment Notes Treatm ent Clinical Notes Apr, Malpresentation of fetus, antepartum (ICD-10 - O 32.9XX0) Apr, 36 weeks gestation of (ICD-10 - Z3A.36 ) PLAN OF TREATMENT Next Appt Details 1 Week Reason:- Routine follow up Provider Name:Magi Tinajero, 2021-05-07 10:00:00 AM, [address] [place] [address] , [place], [address], Provider Name:Magi Tinajero, 2021-05-14 03:40:00 PM, [address] [place] [address] , [place], [address], Provider Name:Magi Tinajero, 2021-05-21 03:00:00 PM, [address] [place] [address] , [place], [address], Provider Name:Yina Sarabia, 2021-08-05 01:00:00 PM, [address] [place] [address] , [place], [address], Follow Up:1 Week- Routine follow up Insurance Providers Payer Name Payer Address Payer Phone Insured Name Patient Relati onship to Insured Coverage Start Date Coverage End Date MEDICAID [id number] [address] [facility] [id number] ALEK ESPINOSA self BCBS [place] [facility] [id number] [facility] [place] [address] Efren Espinosa
--- OUTSIDE RECORDS SUMMARY | 2021-05-12 13:55 | CCD ---
Author Author [facility] Organization [facility] Address Unknown Phone Unavailable Care Team Providers Care Burner Tender Name Role Phone Marielena Sage Unavailable PROBLEMS Type Condition ICD9-CM Code [id number] Code Onset Dates Condition S tatus W/U Status Risk SNOMED Code Notes Problem GERD without esophagitis K21.9 Active confirmed 765948099 Problem Mild intermittent asthma without complication J45. 20 Active confirmed 461220431 Problem Multiple food allergies Z91.018 Active confirmed 504851848 Problem Dyspareunia in female N94.10 Active confirmed 12614784 Problem Interstitial cystitis N30.10 Active confirmed 371622236 Problem Anxiety disorder, unspecified F41.9 Active confirm ed 520960136 Problem Multiple allergies Z88.9 Active confirmed 6 91085805 Problem Cigarette nicotine dependence in remission F17.211 Active confirmed 286813763 Problem Vitamin D deficiency E55.9 Active confirmed 57743517 Problem Supervision of other normal Z34.80 Ac tive confirm 335793497 ALLERGIES Allergen (clinical drug ingredient) Drug/Non Drug Allergy do cumented on EMR Reaction Allergy Type Onset Date Status amoxicillin Amoxicillin(NDC Code:[address]-06) RASH/FEVER Drug Aller gy Active PORK, BLACK PEPPER Unknown Non Drug Allergy Active fesoterodine Toviaz(ND Code:[address]-14) ANAPHYLAXIS Drug Allergy Active DAIRY PROTEIN, WHEAT, CORN, CHOLCOLATE, PEANUTS, AL Un known Non Drug Allergy Active FISH (OTHER THAN SHELLFISH) UNKNOWN Non Drug Allergy Active BROWN RICE, ALMONDS, TOMATOES, WHITE POTATOES, SOY, Un known Non Drug Allergy Active ENCOUNTERS from 1990 to 2021-05-07 Encounter Location Date Provider Diagnosis [facility] [address] [facility] [phone] [place] [address] Apr, [facility] Sage IMMUNIZATIONS Vaccine Route Administration Date Status TDAP [...] Education Language: Question Answer Notes Languages spoken: Greek Pentecostalism: Question Answer Notes Pentecostalism 08 Mosque No amish beliefs that would impact health care. Drug [...] Information RESULTS No Results REASON FOR VISIT 05/15/21 SURG AUTH MEDICAL (GENERAL) HISTORY Type Description Date Medical History Allergies, seasonal/medication/food Medical History Asthma, mild persistent - Dr. Clinton cuello Medical History Stress-induced seizures Medical History Scoliosis Medical History Migraines Medical History Depression, anxiety Medical History Chronic R hip and low back pain Medical History GERD Medical History IBS Medical History Endometriosis Medical History Intestitial cystitis/microsc opic hematuria - saw [facility] Urology in the past Medical History Palpitations, syncope - Dr. Sharma Medical History Former smoker, quit 09/2020 Surgical History adenoidectomy as a small child Surgical History cystoscopy - [facility] 2013 Surgical History tonsillectomy - [facility] Dr Augusto hays 2016 Surgical History Bilateral repair of TM perforations - [facility] 2017 Surgical History Bladder expansion Hospitalization History No know Hospitalization history Goals Section No Information Health Concerns No Information MEDICAL EQUIPMENT No Information MENTAL STATUS No Information FUNCTIONAL STATUS No Information ASSESSMENTS No Information PLAN OF TREATMENT Next Appt Details Provider Name:Marielena Dilia hCu, 2021-05-07 1 0:40:00 AM, [address] [place] [address], , [place], [address], Provider Name:Magi Tinajero, 2021-05-14 03:40:00 PM, [address] [place] [address], , [place], [address], Provider Name:Marielena Sage, 2021-05-15 0 7:30:00 AM, [address] [place] [address], , [place], [address], Provider Name:Charly Uribe, 2021-05-15 0 7:30:00 AM, [address] [place] [address], , [place], [address], Provider Name:Marielena Sage, 2021-05-28 0 2:00:00 PM, [address] [place] [address], , [place], [address], Provider Name:Marielena Sage, 2021-07-10 1 0:20:00 AM, [address] [place] [address], , [place], [address], Provider Name:Yina Sarabia, 2021-08-05 01:00:00 PM, [address] [place] [address], , [place], [address], Insurance Providers Payer Name Payer Address Payer Phone Insured Name Patient Relati onship to Insured Coverage Start Date Coverage End Date VASILIY NEVAREZ PPO [phone] [facility] [place] [address] Efren Espinosa MEDICAID [employer] [address] [facility] [id number] ALEK ESPINOSA self
--- OUTSIDE RECORDS SUMMARY | 2021-05-12 13:55 | CCD ---
Author Author [facility] Organization [facility] Address Unknown Phone Unavailable Care Team Providers Care Manager Car Name Role Phone Johnathon Amelia Unavailable PROBLEMS Type Condition ICD9-CM Code KYV14-GH Code Onset Dates Condition S tatus W/U Status Risk SNOMED Code Notes Problem Interstitial cystitis N30.10 Active confirmed 762593880 Problem GERD without esophagitis K21.9 Active confirmed 557260352 Problem Vitamin D deficiency E55.9 Active confirmed 13245573 Problem Supervision of other normal Z34.80 Ac tive confirm 236406878 Problem Mild intermittent asthma without complication J45. 20 Active confirmed 914744419 Problem Multiple food allergies Z91.018 Active confirmed 258074730 Problem Multiple allergies Z88.9 Active confirmed 6 72210873 Problem Cigarette nicotine dependence in remission F17.211 Active confirmed 692237179 ALLERGIES Allergen (clinical drug ingredient) Drug/Non Drug Allergy do cumented on EMR Reaction Allergy Type Onset Date Status amoxicillin Amoxicillin(NDC Code:[address]-58) RASH/FEVER Drug Aller gy Active PORK, BLACK PEPPER Unknown Non Drug Allergy Active fesoterodine Toviaz(NDC Code:[address]-35) ANAPHYLAXIS Drug Allergy Active DAIRY PROTEIN, WHEAT, CORN, CHOLCOLATE, PEANUTS, AL Un known Non Drug Allergy Active FISH (OTHER THAN SHELLFISH) UNKNOWN Non Drug Allergy Active BROWN RICE, ALMONDS, TOMATOES, WHITE POTATOES, SOY, Un known Non Drug Allergy Active ENCOUNTERS from 1990 to 2021-02-28 Encounter Location Date Provider Diagnosis [facility] [address] [place] [address] [place] [address] Feb, Amelia Diego Interstitial cystiti s N30.10 IMMUNIZATIONS No Information SOCIAL HISTORY Tobacco Use: Social History Observation Description Date Details (start date - stop date) Former Smoker Sex Assigned At : Social History Observation Description Sex Assigned At Unknown Education: Question Answer Notes Level of Education: Finished High School Audit Question Answer Notes Total Score: 0 Interpretation: Alcohol Education Language: Question Answer Notes Languages spoken: Cymro Yarsanism: Question Answer Notes Yarsanism 08 Rastafari No moravian beliefs that would impact health care. Drug [...] 1 tablet Orally Once a day Active Colace 100 MG 1 capsule as needed Orally Once a day for 30 day(s) Active Ondansetron 4 MG 1 tablet on the tongue and a llow to dissolve Orally Once a day for 30 day(s) Sep, Active Omeprazole 20 MG 1 capsule 30 minutes before morning meal Orally Once a day for 30 day(s) Jan, Active Unisom SleepTabs Active Pyridium 100 MG 1 tablet after meals Orally Three times a day fo r 4 days Jan, Active Vitamin B6 Active EpiPen 2-Juan 0.3 MG/0.3ML as directed Injection October, Active PROCEDURES No Information RESULTS No Results REASON FOR VISIT Urine MEDICAL (GENERAL) HISTORY Type Description Date Medical History Allergies, seasonal/medication/food Medical History Asthma, mild persistent - Dr. Alonzo i Medical History Stress-induced seizures Medical History Scoliosis Medical History Migraines Medical History Depression, anxiety Medical History Chronic R hip and low back pain Medical History GERD Medical History IBS Medical History Endometriosis Medical History Intestitial cystitis/microsc opic hematuria - saw [facility] Urology in the past Medical History Palpitations, syncope - Dr. Sharma Medical History Former smoker, quit 09/2020 Surgical History adenoidectomy as a small child Surgical History cystoscopy - [facility] 2013 Surgical History tonsillectomy - [facility] Dr Augusto hays 2016 Surgical History Bilateral repair of TM perforations - [facility] 2017 Surgical History Bladder expansion Hospitalization History No know Hospitalization history Goals Section No Information Health Concerns No Information MEDICAL EQUIPMENT No Information MENTAL STATUS No Information FUNCTIONAL STATUS No Information ASSESSMENTS Encounter Date Diagnosis Assessment Notes Treatment Notes Treatm ent Clinical Notes Feb, Interstitial cystitis (ICD-10 - N30.10) PLAN OF TREATMENT Medication Medication Name Sig Start Date Stop Date Pyridium 100 MG 1 tablet after meals Orally Three times a day for 4 days Jan, Treatment Notes Test Name Order Date UA URINALYSIS 2021-02-21 URINE CULTURE 2021-02-21 Next Appt Details Provider Name:Amelia Diego, 2021-03-06 02:40:00 PM, [address] [place] [address], , [place], [address], Provider Name:Yina Sarabia, 2021-08-05 01:00:00 PM, [address] [place] [address], , [place], [address], Insurance Providers Payer Name Payer Address Payer Phone Insured Name Patient Relati onship to Insured Coverage Start Date Coverage End Date [employer] DE[employer] [address] [facility] [phone] ALEK ESPINOSA self MEDICAID [facility] [address] [facility] [address] ALEK ESPINOSA self
--- OUTSIDE RECORDS SUMMARY | 2021-05-12 13:55 | CCD ---
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 20 Active confirmed 313629255 Problem Multiple food allergies Z91.018 Active confirmed 997548535 Problem Dyspareunia in female N94.10 Active confirmed 50362371 Problem Interstitial cystitis N30.10 Active confirmed 983159636 Problem Anxiety disorder, unspecified F41.9 Active confirm ed 421540447 Problem Multiple allergies Z88.9 Active confirmed 6 87254785 Problem Cigarette nicotine dependence in remission F17.211 Active confirmed 118073432 Problem Vitamin D deficiency E55.9 Active confirmed 37562441 Problem Supervision of other normal Z34.80 Ac tive confirm 065382853 ALLERGIES Allergen (clinical drug ingredient) Drug/Non Drug Allergy do cumented on EMR Reaction Allergy Type Onset Date Status amoxicillin Amoxicillin(NDC Code:[address]-95) RASH/FEVER Drug Aller gy Active PORK, BLACK PEPPER Unknown Non Drug Allergy Active fesoterodine Toviaz(ND Code:[address]-50) ANAPHYLAXIS Drug Allergy Active DAIRY PROTEIN, WHEAT, CORN, CHOLCOLATE, PEANUTS, AL Un known Non Drug Allergy Active FISH (OTHER THAN SHELLFISH) UNKNOWN Non Drug Allergy Active BROWN RICE, ALMONDS, TOMATOES, WHITE POTATOES, SOY, Un known Non Drug Allergy Active ENCOUNTERS from 1990 to 2021-04-25 Encounter Location Date Provider Diagnosis [facility] [address] [facility] [phone] [place] [address] 11 Apr, 2021 Magi Tinajero Spotting complica ting , third trimester O26.853 ; Malpresentation of fetus, antepartum O32.9XX0 ; Anxiety disorder, unspecified F41.9 and 36 weeks gestation of Z3A.36 IMMUNIZATIONS [...] Education Language: Question Answer Notes Languages spoken: Ghanaian Buddhism: Question Answer Notes Buddhism 08 Quaker No moravian beliefs that would impact health care. Drug and Alcohol Question Answer Notes Total Score: 0 Interpretation: No problems reported Alcohol Screening: Question Answer Notes Did you have a drink containing alcohol in the past year? No Points 0 Interpretation Negative Tobacco Use: Question Answer Notes Are you a: former smoker REASON FOR REFERRAL No Information VITAL SIGNS Weight 133 lbs Apr, Weight-kg 60.33 kg Apr, Height 64 in Apr, BMI 22.829 kg/m2 Apr, Blood pressure systolic 102 mm Hg Apr, Blood pressure diastolic 60 mm Hg Apr, MEDICATIONS Medication SIG (Take, Route, Frequency, Duration) Notes Start Da te End Date Status Colace 100 MG 1 capsule as needed Orally Once a day for 30 day(s) Active Tamiflu 75 MG 1 capsule Orally Twice a day for 5 day(s) Mar, Active Unisom SleepTabs Not-Taki ng 28-0.8 MG 1 tablet Orally Once a day Active Zoloft 25 MG 1 tablet Orally Once a day for 30 day(s) 2020 Active Pyridium 100 MG 1 tablet after meals Orally Three times a day fo r 4 days Jan, Active EpiPen 2-Juan 0.3 MG/0.3ML as directed Injection October, Active Ondansetron 4 MG 1 tablet on the tongue and a llow to dissolve Orally Once a day for 30 day(s) Sep, Active Omeprazole 20 MG 1 capsule 30 minutes before morning meal Orally Once a day for 30 day(s) Jan, Active Vitamin B6 Active PROCEDURES No Information RESULTS No Results [...] History Intestitial cystitis/microsc opic hematuria - saw [facility] Urology in the past Medical History Palpitations, syncope - Dr. Sharma Medical History Former smoker, quit 09/2020 Surgical History adenoidectomy as a small child Surgical History cystoscopy - [facility] 2013 Surgical History tonsillectomy - [facility] Dr Augusto hays 2016 Surgical History Bilateral repair of TM perforations - [facility] 2017 Surgical History Bladder expansion Hospitalization History No know Hospitalization history Goals Section No Information Health Concerns No Information MEDICAL EQUIPMENT No Information MENTAL STATUS No Information FUNCTIONAL STATUS No Information ASSESSMENTS Encounter Date Diagnosis Assessment Notes Treatment Notes Treatm ent Clinical Notes Apr, Spotting complicating pregna ncy, third trimester (ICD-10 - O26.853) Apr, Malpresentation of fetus, antepartum (ICD-10 - O 32.9XX0) Apr, Anxiety disorder, unspecified (ICD-10 - F41.9) Apr, 36 weeks gestation of (ICD-10 - Z3A.36 ) PLAN OF TREATMENT Medication Medication Name Sig Start Date Stop Date Zoloft 25 MG 1 tablet Orally Once a day for 30 day(s) Apr, Pending Tests Test Name Order Date GROUP B STREP CULTURE 2021-04-24 [facility] US TRANS PREG UTERUS 2021-04-24 Next Appt Details 1 Week Reason:- Routine follow up Provider Name:Magi Tinajero, 2021-04-30 01:40:00 PM, [address] [place] [address], , [place], [address], Provider Name:Magi Tinaejro, 2021-05-07 10:00:00 AM, [address] [place] [address], , [place], [address], Provider Name:Magi Tinajero, 2021-05-14 03:40:00 PM, [address] [place] [address], , [place], [address], Provider Name:Magi Tinajero, 2021-05-21 03:00:00 PM, [address] [place] [address], , [place], [address], Provider Name:Yina Sarabia, 2021-08-05 01:00:00 PM, [address] [place] [address], , [place], [address], Follow Up:1 Week- Routine follow up Insurance Providers Payer Name Payer Address Payer Phone Insured Name Patient Relati onship to Insured Coverage Start Date Coverage End Date MEDICAID [employer] [address] [facility] [address] ALEK ESPINOSA self BCBS [place] [facility] PPO [id number] [facility] [place] [id number] Efren Espinosa
--- OUTSIDE RECORDS SUMMARY | 2021-05-12 13:56 | CCD ---
Author Author [facility] Organization [facility] Address Unknown Phone Unavailable Care Team Providers Care Property Management Bookkeeper Name Role Phone KATHY GAMEZ MD Unavailable [...] Unavailable KATHY GAMEZ MD Unavailable Unavailable KATHY GAMZE MD Unavailable Unavailable KATHY GAMEZ MD Unavailable [...] Unavailable Unavailable KATHY GAMEZ MD Unavailable Unavailable ANTECOL, Madyson SOOD MD Unavailable Unavailable ANTECOL, Madyson SOOD MD Unavailable Unavailable ANTECOL, Madyson SOOD MD Unavailable Unavailable ANTECOL, Madyson SOOD MD Unavailable Unavailable ANTECOL, Madyson SOOD MD Unavailable Unavailable ANTECOL, Madyson SOOD MD Unavailable Unavailable ANTECOL, Madyson SOOD MD Unavailable Unavailable ANTECOL, Madyson SOOD MD Unavailable Unavailable ANTECOL, Madyson SOOD MD Unavailable Unavailable ANTECOL, Madyson SOOD MD Unavailable Unavailable ANTECOL, Madyson SOOD MD Unavailable Unavailable ANTECOL, Madyson SOOD MD Unavailable Unavailable ANTECOL, Madyson SOOD MD Unavailable Unavailable ANTECOL, Madyson SOOD MD Unavailable Unavailable ANTECOL, Mdayson SOOD MD Unavailable Unavailable ANTECOL, Madyson SOOD MD Unavailable Unavailable ANTECOL, Madyson SOOD MD Unavailable Unavailable ANTECOL, Madyson SOOD MD Unavailable Unavailable ANTECOL, Madyson SOOD MD Unavailable Unavailable ANTECOL, Madyson SOOD MD Unavailable Unavailable ANTECOL, Madyson SOOD MD Unavailable Unavailable ANTECOL, Madyson SOOD MD Unavailable Unavailable ANTECOL, Madyson SOOD MD Unavailable Unavailable ANTECOL, Madyson SOOD MD Unavailable Unavailable ANTECOL, Madyson SOOD MD Unavailable Unavailable ANTECOL, Madyson SOOD MD Unavailable Unavailable ANTECOL, Madyson SOOD MD Unavailable Unavailable ANTECOL, Madyson SOOD MD Unavailable Unavailable ANTECOL, Madyson SOOD MD Unavailable Unavailable ANTECOL, Madyson SOOD MD Unavailable Unavailable ANTECOL, Madyson SOOD MD Unavailable Unavailable ANTECOL, Madyson SOOD MD Unavailable Unavailable ANTECOL, Madyson SOOD MD Unavailable Unavailable ANTECOL, Madyson SOOD MD Unavailable Unavailable ANTECOL, Madyson SOOD MD Unavailable Unavailable ANTECOL, Madyson SOOD MD Unavailable Unavailable ANTECOL, Madyson SOOD MD Unavailable Unavailable ANTECOL, Madyson SOOD MD Unavailable Unavailable ANTECOL, Madyson SOOD MD Unavailable Unavailable ANTECOL, Madyson SOOD MD Unavailable Unavailable ANTECOL, Madyson SOOD MD Unavailable Unavailable ANTECOL, Madyson SOOD MD Unavailable Unavailable ANTECOL, Madyson SOOD MD Unavailable Unavailable ANTECOL, Madyson SOOD MD Unavailable Unavailable ANTECOL, Madyson SOOD MD Unavailable Unavailable ANTECOL, Madyson SOOD MD Unavailable Unavailable ANTECOL, Madyson SOOD MD Unavailable Unavailable ANTECOL, Madyson SOOD MD Unavailable Unavailable ANTECOL, Madyson SOOD MD Unavailable Unavailable ANTECOL, Madyson SOOD MD Unavailable Unavailable ANTECOL, Madyson SOOD MD Unavailable Unavailable ANTECOL, Madyson SOOD MD Unavailable Unavailable ANTECOL, Madyson SOOD MD Unavailable Unavailable ANTECOL, Madyson SOOD MD Unavailable Unavailable Re-disclosure Warning The records [...] is protected by Article 27-F of the [facility] Public Health law. If you continue you may have access to information: Regarding HIV / AIDS; Provided by facilities licensed or operated by the [facility] Office of Mental Health; or Provided by the [facility] Office for People With Developmental Disabilities. If such information is present, then the following [facility] mandated warning applies: This information has [...] law may result in a fine or intermediate sentence or both. A general authorization for the release of medical or other information is NOT sufficient authorization for further disc losure. Family History Family Member Name Family Member Gender Family Member Status Date o f Status Description Data Source(s) Unknown Female Problem MEDENT ([facility]) Unknown Unknown Problem MED[facility] ([facility]) Encounters Encounter Providers Location Date Indications Data Source(s ) ( ESTOB) enter Est OB [address] [place] [address] 05/07/2021 12:00:00 AM EST eCW1 ([facility]) Unknown [address] [facility] [place] [address] 05/06/2021 12:00:00 AM EST eCW1 ([facility]) Unknown [address] [facility] [place] [address] 05/05/2021 12:00:00 AM EST eCW1 ([facility]) (WC ESTOB) [facility] [address] [place] [address] 04/30/2021 12:00:00 AM EST eCW1 ([facility]) (WC ESTOB) [facility] [address] [place] [address] 04/24/2021 12:00:00 AM EST eCW1 ([facility]) (WC ESTOB) [facility] [address] [place] [address] 04/10/2021 12:00:00 AM EDT eCW1 ([facility]) Unknown [address] [facility] [place] [address] 03/18/2021 12:00:00 AM EDT eCW1 ([facility]) (WC ESTOB) [facility] [address] [place] [address] 03/06/2021 12:00:00 AM EDT eCW1 ([facility]) Unknown [address] [facility] [place] [address] 02/21/2021 12:00:00 AM EDT eCW1 ([facility]) (WC ESTOB) [facility] [address] [place] [address] 02/03/2021 12:00:00 AM EDT eCW1 ([facility]) Unknown [address] [facility] [place] [address] 01/22/2021 12:00:00 AM EDT eCW1 ([facility]) Unknown [address] [facility] [place] [address] 01/09/2021 12:00:00 AM EDT eCW1 ([facility]) Unknown [address] [facility] [place] [address] 01/03/2021 12:00:00 AM EDT eCW1 ([facility]) (WC ESTOB) [facility] [address] [place] [address] 01/02/2021 12:00:00 AM EDT eCW1 ([facility]) (WC ESTOB) [facility] [address] [place] [address] 12/04/2020 12:00:00 AM EDT eCW1 ([facility]) (WC ESTOB) [facility] [address] [place] [address] 11/06/2020 12:00:00 AM EDT eCW1 ([facility]) Outpatient [address] [facility] [place] [address] 11/01/2020 12:00:00 AM EDT eCW1 ([facility]) Unknown [address] [facility] [place] [address] 11/01/2020 12:00:00 AM EDT eCW1 ([facility]) (WC ESTOB) [facility] Est [facility] [address] [place] [address] 10/09/2020 12:00:00 AM EDT eCW1 ([facility]) Unknown [address] [facility] [place] [address] 08/28/2020 12:00:00 AM EDT eCW1 ([facility]) Outpatient Attender: BARRIE DELACRUZ MD Main Office 08/14/2020 09:45:00 AM EST MEDENT ([facility]) Outpatient [address] [facility] [place] [address] 08/08/2020 12:00:00 AM EST eCW1 ([facility]) Unknown [address] [facility] [place] [address] 07/23/2020 12:00:00 AM EST eCW1 ([facility]) Unknown [address] [facility] [place] [address] 07/23/2020 12:00:00 AM EST eCW1 ([facility]) Unknown [address] [facility] [place] [address] 07/22/2020 12:00:00 AM EST eCW1 ([facility]) Unknown [address] [facility] [place] [address] 04/18/2020 12:00:00 AM EST eCW1 ([facility]) Outpatient [address] [facility] [place] [address] 04/18/2020 12:00:00 AM EST eCW1 ([facility]) Outpatient Attender: KATHY GAMEZ MD Main Office 03/27/2020 02:19:00 PM EDT [facility] ([facility]) Outpatient Attender: KATHY GAMEZ MD Main Office 03/20/2020 02:30:00 PM EDT [facility] ([facility]) Immunizations Vaccine Date Status Description Data Source(s) Tdap 03/06/2021 03:20:00 PM EDT completed e CW1 ([facility]) Tdap 03/06/2021 03:20:00 PM EDT completed e CW1 ([facility]) Tdap 03/06/2021 03:20:00 PM EDT completed e CW1 ([facility]) Tdap 03/06/2021 03:20:00 PM EDT completed e CW1 ([facility]) Tdap 03/06/2021 03:20:00 PM EDT completed e CW1 ([facility]) Tdap 03/06/2021 03:20:00 PM EDT completed e CW1 ([facility]) Tdap 03/06/2021 03:20:00 PM EDT completed e CW1 ([facility]) Tdap 03/06/2021 03:20:00 PM EDT completed e CW1 ([facility]) Medications Medication Brand Name Start Date Product Form Dose Route Admi nistrative Instructions Pharmacy Instructions Status Indications Reaction Description Data Source(s) Sertraline 25 MG Oral Tablet [Zoloft] Zoloft 25 MG Zoloft 25 MG 04/24/2021 12:00:00 AM EST 1.0 {tablet} active Zo loft 25 MG eCW1 ([facility]) Sertraline 25 MG Oral Tablet [Zoloft] Zoloft 25 MG Zoloft 25 MG 04/24/2021 12:00:00 AM EST 1.0 {tablet} active Zo loft 25 MG eCW1 ([facility]) Sertraline 25 MG Oral Tablet [Zoloft] Zoloft 25 MG Zoloft 25 MG 04/24/2021 12:00:00 AM EST 1.0 {tablet} active Zo loft 25 MG eCW1 ([facility]) Sertraline 25 MG Oral Tablet [Zoloft] Zoloft 25 MG Zoloft 25 MG 04/24/2021 12:00:00 AM EST 1.0 {tablet} active Zo loft 25 MG eCW1 ([facility]) Sertraline 25 MG Oral Tablet [Zoloft] Zoloft 25 MG Zoloft 25 MG 04/24/2021 12:00:00 AM EST 1.0 {tablet} active Zo loft 25 MG eCW1 ([facility]) Sertraline 25 MG Oral Tablet [Zoloft] Zoloft 25 MG Zoloft 25 MG 04/24/2021 12:00:00 AM EST 1.0 {tablet} active Zo loft 25 MG eCW1 ([facility]) Oseltamivir 75 MG Oral Capsule [Tamiflu] Tamiflu 75 MG Tamif connor 75 MG 04/01/2021 12:00:00 AM EDT 1.0 {capsule} suspended Tamiflu 75 MG eCW1 ([facility]) Oseltamivir 75 MG Oral Capsule [Tamiflu] Tamiflu 75 MG Tamif connor 75 MG 04/01/2021 12:00:00 AM EDT 1.0 {capsule} suspended Tamiflu 75 MG eCW1 ([facility]) Oseltamivir 75 MG Oral Capsule [Tamiflu] Tamiflu 75 MG Tamif connor 75 MG 04/01/2021 12:00:00 AM EDT 1.0 {capsule} suspended Tamiflu 75 MG eCW1 ([facility]) Oseltamivir 75 MG Oral Capsule [Tamiflu] Tamiflu 75 MG Tamif connro 75 MG 04/01/2021 12:00:00 AM EDT 1.0 {capsule} suspended Tamiflu 75 MG eCW1 ([facility]) Oseltamivir 75 MG Oral Capsule [Tamiflu] Tamiflu 75 MG Tamif connor 75 MG 04/01/2021 12:00:00 AM EDT 1.0 {capsule} active T amiflu 75 MG eCW1 ([facility]) Oseltamivir 75 MG Oral Capsule [Tamiflu] Tamiflu 75 MG Tamif connor 75 MG 04/01/2021 12:00:00 AM EDT 1.0 {capsule} suspended Tamiflu 75 MG eCW1 ([facility]) Phenazopyridine hydrochloride 100 MG Oral Tablet [Pyri dium] Pyridium 100 MG Pyridium 100 MG 02/03/2021 12:00:00 AM EDT 1.0 {tablet_after_meals} active Pyridium 100 MG eCW1 ([facility]) Phenazopyridine hydrochloride 100 MG Oral Tablet [Pyri dium] Pyridium 100 MG Pyridium 100 MG 02/03/2021 12:00:00 AM EDT 1.0 {tablet_after_meals} active Pyridium 100 MG eCW1 ([facility]) Phenazopyridine hydrochloride 100 MG Oral Tablet [Pyri dium] Pyridium 100 MG Pyridium 100 MG 02/03/2021 12:00:00 AM EDT 1.0 {tablet_after_meals} active Pyridium 100 MG eCW1 ([facility]) Phenazopyridine hydrochloride 100 MG Oral Tablet [Pyri dium] Pyridium 100 MG Pyridium 100 MG 02/03/2021 12:00:00 AM EDT 1.0 {tablet_after_meals} suspended Pyridium 100 MG eCW1 ([facility]) Phenazopyridine hydrochloride 100 MG Oral Tablet [Pyri dium] Pyridium 100 MG Pyridium 100 MG 02/03/2021 12:00:00 AM EDT 1.0 {tablet_after_meals} active Pyridium 100 MG eCW1 ([facility]) Phenazopyridine hydrochloride 100 MG Oral Tablet [Pyri dium] Pyridium 100 MG Pyridium 100 MG 02/03/2021 12:00:00 AM EDT 1.0 {tablet_after_meals} suspended Pyridium 100 MG eCW1 ([facility]) Phenazopyridine hydrochloride 100 MG Oral Tablet [Pyri dium] Pyridium 100 MG Pyridium 100 MG 02/03/2021 12:00:00 AM EDT 1.0 {tablet_after_meals} suspended Pyridium 100 MG eCW1 ([facility]) Phenazopyridine hydrochloride 100 MG Oral Tablet [Pyri dium] Pyridium 100 MG Pyridium 100 MG 02/03/2021 12:00:00 AM EDT 1.0 {tablet_after_meals} suspended Pyridium 100 MG eCW1 ([facility]) Phenazopyridine hydrochloride 100 MG Oral Tablet [Pyri dium] Pyridium 100 MG Pyridium 100 MG 02/03/2021 12:00:00 AM EDT 1.0 {tablet_after_meals} suspended Pyridium 100 MG eCW1 ([facility]) Phenazopyridine hydrochloride 100 MG Oral Tablet [Pyri dium] Pyridium 100 MG Pyridium 100 MG 02/03/2021 12:00:00 AM EDT 1.0 {tablet_after_meals} active Pyridium 100 MG eCW1 ([facility]) Omeprazole 20 MG Delayed Release Oral Capsule Omeprazole 20 MG 01/22/2021 12:00:00 AM EDT active Omeprazo le 20 MG eCW1 ([facility]) Omeprazole 20 MG Delayed Release Oral Capsule Omeprazole 20 MG 01/22/2021 12:00:00 AM EDT active Omeprazo le 20 MG eCW1 ([facility]) Omeprazole 20 MG Delayed Release Oral Capsule Omeprazole 20 MG 01/22/2021 12:00:00 AM EDT active Omeprazo le 20 MG eCW1 ([facility]) Omeprazole 20 MG Delayed Release Oral Capsule Omeprazole 20 MG 01/22/2021 12:00:00 AM EDT active Omeprazo le 20 MG eCW1 ([facility]) Omeprazole 20 MG Delayed Release Oral Capsule Omeprazole 20 MG 01/22/2021 12:00:00 AM EDT active Omeprazo le 20 MG eCW1 ([facility]) Omeprazole 20 MG Delayed Release Oral Capsule Omeprazole 20 MG 01/22/2021 12:00:00 AM EDT active Omeprazo le 20 MG eCW1 ([facility]) Omeprazole 20 MG Delayed Release Oral Capsule Omeprazole 20 MG 01/22/2021 12:00:00 AM EDT active Omeprazo le 20 MG eCW1 ([facility]) Omeprazole 20 MG Delayed Release Oral Capsule Omeprazole 20 MG 01/22/2021 12:00:00 AM EDT active Omeprazo le 20 MG eCW1 ([facility]) Omeprazole 20 MG Delayed Release Oral Capsule Omeprazole 20 MG 01/22/2021 12:00:00 AM EDT active Omeprazo le 20 MG eCW1 ([facility]) Omeprazole 20 MG Delayed Release Oral Capsule Omeprazole 20 MG 01/22/2021 12:00:00 AM EDT active Omeprazo le 20 MG eCW1 ([facility]) Omeprazole 20 MG Delayed Release Oral Capsule Omeprazole 20 MG 01/22/2021 12:00:00 AM EDT active Omeprazo le 20 MG eCW1 ([facility]) 0.3 ML Epinephrine 1 MG/ML Auto-Injector [Epipen] EpiP en 2-Juan 0.3 MG/0.3ML EpiPen 2-Juan 0.3 MG/0.3ML 11/01/2020 12:00:00 AM EDT active EpiPen 2-Juan 0.3 MG/0.3ML eCW1 ([facility]) 0.3 ML Epinephrine 1 MG/ML Auto-Injector [Epipen] EpiP en 2-Juan 0.3 MG/0.3ML EpiPen 2-Juan 0.3 MG/0.3ML 11/01/2020 12:00:00 AM EDT active EpiPen 2-Juan 0.3 MG/0.3ML eCW1 ([facility]) 0.3 ML Epinephrine 1 MG/ML Auto-Injector [Epipen] EpiP en 2-Juan 0.3 MG/0.3ML EpiPen 2-Juan 0.3 MG/0.3ML 11/01/2020 12:00:00 AM EDT active EpiPen 2-Juan 0.3 MG/0.3ML eCW1 ([facility]) 0.3 ML Epinephrine 1 MG/ML Auto-Injector [Epipen] EpiP en 2-Juan 0.3 MG/0.3ML EpiPen 2-Juan 0.3 MG/0.3ML 11/01/2020 12:00:00 AM EDT active EpiPen 2-Juan 0.3 MG/0.3ML eCW1 ([facility]) 0.3 ML Epinephrine 1 MG/ML Auto-Injector [Epipen] EpiP en 2-Juan 0.3 MG/0.3ML EpiPen 2-Juan 0.3 MG/0.3ML 11/01/2020 12:00:00 AM EDT active EpiPen 2-Juan 0.3 MG/0.3ML eCW1 ([facility]) 0.3 ML Epinephrine 1 MG/ML Auto-Injector [Epipen] EpiP en 2-Juan 0.3 MG/0.3ML EpiPen 2-Juan 0.3 MG/0.3ML 11/01/2020 12:00:00 AM EDT active EpiPen 2-Juan 0.3 MG/0.3ML eCW1 ([facility]) 0.3 ML Epinephrine 1 MG/ML Auto-Injector [Epipen] EpiP en 2-Juan 0.3 MG/0.3ML EpiPen 2-Juan 0.3 MG/0.3ML 11/01/2020 12:00:00 AM EDT active EpiPen 2-Juan 0.3 MG/0.3ML eCW1 ([facility]) 0.3 ML Epinephrine 1 MG/ML Auto-Injector [Epipen] EpiP en 2-Juan 0.3 MG/0.3ML EpiPen 2-Juan 0.3 MG/0.3ML 11/01/2020 12:00:00 AM EDT active EpiPen 2-Juan 0.3 MG/0.3ML eCW1 ([facility]) 0.3 ML Epinephrine 1 MG/ML Auto-Injector [Epipen] EpiP en 2-Juan 0.3 MG/0.3ML EpiPen 2-Juan 0.3 MG/0.3ML 11/01/2020 12:00:00 AM EDT active EpiPen 2-Juan 0.3 MG/0.3ML eCW1 ([facility]) 0.3 ML Epinephrine 1 MG/ML Auto-Injector [Epipen] EpiP en 2-Juan 0.3 MG/0.3ML EpiPen 2-Juan 0.3 MG/0.3ML 11/01/2020 12:00:00 AM EDT active EpiPen 2-Juan 0.3 MG/0.3ML eCW1 ([facility]) 0.3 ML Epinephrine 1 MG/ML Auto-Injector [Epipen] EpiP en 2-Juan 0.3 MG/0.3ML EpiPen 2-Juan 0.3 MG/0.3ML 11/01/2020 12:00:00 AM EDT active EpiPen 2-Juan 0.3 MG/0.3ML eCW1 ([facility]) 0.3 ML Epinephrine 1 MG/ML Auto-Injector [Epipen] EpiP en 2-Juan 0.3 MG/0.3ML EpiPen 2-Juan 0.3 MG/0.3ML 11/01/2020 12:00:00 AM EDT active EpiPen 2-Juan 0.3 MG/0.3ML eCW1 ([facility]) 0.3 ML Epinephrine 1 MG/ML Auto-Injector [Epipen] EpiP en 2-Juan 0.3 MG/0.3ML EpiPen 2-Juan 0.3 MG/0.3ML 11/01/2020 12:00:00 AM EDT active EpiPen 2-Juan 0.3 MG/0.3ML eCW1 ([facility]) 0.3 ML Epinephrine 1 MG/ML Auto-Injector [Epipen] EpiP en 2-Juan 0.3 MG/0.3ML EpiPen 2-Juan 0.3 MG/0.3ML 11/01/2020 12:00:00 AM EDT active EpiPen 2-Juan 0.3 MG/0.3ML eCW1 ([facility]) 0.3 ML Epinephrine 1 MG/ML Auto-Injector [Epipen] EpiP en 2-Juan 0.3 MG/0.3ML EpiPen 2-Juan 0.3 MG/0.3ML 11/01/2020 12:00:00 AM EDT active EpiPen 2-Juan 0.3 MG/0.3ML eCW1 ([facility]) 0.3 ML Epinephrine 1 MG/ML Auto-Injector [Epipen] EpiP en 2-Juan 0.3 MG/0.3ML EpiPen 2-Juan 0.3 MG/0.3ML 11/01/2020 12:00:00 AM EDT active EpiPen 2-Juan 0.3 MG/0.3ML eCW1 ([facility]) 0.3 ML Epinephrine 1 MG/ML Auto-Injector [Epipen] EpiP en 2-Juan 0.3 MG/0.3ML EpiPen 2-Juan 0.3 MG/0.3ML 11/01/2020 12:00:00 AM EDT active EpiPen 2-Juan 0.3 MG/0.3ML eCW1 ([facility]) 0.3 ML Epinephrine 1 MG/ML Auto-Injector [Epipen] EpiP en 2-Juan 0.3 MG/0.3ML EpiPen 2-Juan 0.3 MG/0.3ML 11/01/2020 12:00:00 AM EDT active EpiPen 2-Juan 0.3 MG/0.3ML eCW1 ([facility]) Ondansetron 4 MG Disintegrating Oral Tablet Ondansetron 4 MG 10/09/2020 12:00:00 AM EDT 1.0 {tablet_on_the_tongue_and_allow_to_dissolve} active Ondansetron 4 MG eCW1 ([facility]) Ondansetron 4 MG Disintegrating Oral Tablet Ondansetron 4 MG 10/09/2020 12:00:00 AM EDT 1.0 {tablet_on_the_tongue_and_allow_to_dissolve} active Ondansetron 4 MG eCW1 ([facility]) Ondansetron 4 MG Disintegrating Oral Tablet Ondansetron 4 MG 10/09/2020 12:00:00 AM EDT 1.0 {tablet_on_the_tongue_and_allow_to_dissolve} active Ondansetron 4 MG eCW1 ([facility]) Ondansetron 4 MG Disintegrating Oral Tablet Ondansetron 4 MG 10/09/2020 12:00:00 AM EDT 1.0 {tablet_on_the_tongue_and_allow_to_dissolve} active Ondansetron 4 MG eCW1 ([facility]) Ondansetron 4 MG Disintegrating Oral Tablet Ondansetron 4 MG 10/09/2020 12:00:00 AM EDT 1.0 {tablet_on_the_tongue_and_allow_to_dissolve} active Ondansetron 4 MG eCW1 ([facility]) Ondansetron 4 MG Disintegrating Oral Tablet Ondansetron 4 MG 10/09/2020 12:00:00 AM EDT 1.0 {tablet_on_the_tongue_and_allow_to_dissolve} active Ondansetron 4 MG eCW1 ([facility]) Ondansetron 4 MG Disintegrating Oral Tablet Ondansetron 4 MG 10/09/2020 12:00:00 AM EDT 1.0 {tablet_on_the_tongue_and_allow_to_dissolve} active Ondansetron 4 MG eCW1 ([facility]) Ondansetron 4 MG Disintegrating Oral Tablet Ondansetron 4 MG 10/09/2020 12:00:00 AM EDT 1.0 {tablet_on_the_tongue_and_allow_to_dissolve} active Ondansetron 4 MG eCW1 ([facility]) Ondansetron 4 MG Disintegrating Oral Tablet Ondansetron 4 MG 10/09/2020 12:00:00 AM EDT 1.0 {tablet_on_the_tongue_and_allow_to_dissolve} active Ondansetron 4 MG eCW1 ([facility]) Ondansetron 4 MG Disintegrating Oral Tablet Ondansetron 4 MG 10/09/2020 12:00:00 AM EDT 1.0 {tablet_on_the_tongue_and_allow_to_dissolve} active Ondansetron 4 MG eCW1 ([facility]) Ondansetron 4 MG Disintegrating Oral Tablet Ondansetron 4 MG 10/09/2020 12:00:00 AM EDT 1.0 {tablet_on_the_tongue_and_allow_to_dissolve} active Ondansetron 4 MG eCW1 ([facility]) Ondansetron 4 MG Disintegrating Oral Tablet Ondansetron 4 MG 10/09/2020 12:00:00 AM EDT 1.0 {tablet_on_the_tongue_and_allow_to_dissolve} active Ondansetron 4 MG eCW1 ([facility]) Ondansetron 4 MG Disintegrating Oral Tablet Ondansetron 4 MG 10/09/2020 12:00:00 AM EDT 1.0 {tablet_on_the_tongue_and_allow_to_dissolve} active Ondansetron 4 MG eCW1 ([facility]) Ondansetron 4 MG Disintegrating Oral Tablet Ondansetron 4 MG 10/09/2020 12:00:00 AM EDT 1.0 {tablet_on_the_tongue_and_allow_to_dissolve} active Ondansetron 4 MG eCW1 ([facility]) Ondansetron 4 MG Disintegrating Oral Tablet Ondansetron 4 MG 10/09/2020 12:00:00 AM EDT 1.0 {tablet_on_the_tongue_and_allow_to_dissolve} active Ondansetron 4 MG eCW1 ([facility]) Ondansetron 4 MG Disintegrating Oral Tablet Ondansetron 4 MG 10/09/2020 12:00:00 AM EDT 1.0 {tablet_on_the_tongue_and_allow_to_dissolve} active Ondansetron 4 MG eCW1 ([facility]) Ondansetron 4 MG Disintegrating Oral Tablet Ondansetron 4 MG 10/09/2020 12:00:00 AM EDT 1.0 {tablet_on_the_tongue_and_allow_to_dissolve} active Ondansetron 4 MG eCW1 ([facility]) Ondansetron 4 MG Disintegrating Oral Tablet Ondansetron 4 MG 10/09/2020 12:00:00 AM EDT 1.0 {tablet_on_the_tongue_and_allow_to_dissolve} active Ondansetron 4 MG eCW1 ([facility]) Ondansetron 4 MG Disintegrating Oral Tablet Ondansetron 4 MG 10/09/2020 12:00:00 AM EDT 1.0 {tablet_on_the_tongue_and_allow_to_dissolve} active Ondansetron 4 MG eCW1 ([facility]) Multi Vitamin 09/03/2020 12:00:00 AM EDT ORAL acti ve MEDENT ([facility]) Cholecalciferol 1000 UNT Oral Tablet Vitamin D (Cholecalcife rol) 08/13/2020 12:00:00 AM EST ORAL active M EDENT ([facility]) Vitamin B Complex 08/13/2020 12:00:00 AM EST ORAL active MEDENT ([facility]) 12 HR Loratadine 5 MG / Pseudoephedrine sulfate 120 MG Extended Release Oral Tablet [Claritin-D] Claritin-D 12 Hour 08/13/2020 12:00:00 AM EST active [facility] ([facility]) Hydroxyzine Hydrochloride 25 MG Oral Tablet Hydroxyzine HCL 08/13/2020 12:00:00 AM EST ORAL active [facility] ([facility]) Fluticasone Propionate Fluticasone Propionate 08/13/2020 12:00:[address] active [facility] ([facility]) Citric Acid 1000 MG / Sodium Bicarbonate 1940 MG Effer vescent Oral Tablet [facility] [place] [facility] 08/13/2020 12:00:00 AM EST activ e MEDENT ([facility]) Allergy Injection 2 Or More 03/27/2020 12:00:00 AM EDT completed [facility] ([facility]) Medication administered onsite Albuterol 0.83 MG/ML Inhalant Solution Albuterol Sulfate 1 12:00:00 AM EDT active [facility] ([facility]) 60 ACTUAT Fluticasone propionate 0.25 MG /ACTUAT / salmeterol 0.05 MG/ACTUAT Dry Powder Inhaler [Advair] Advair Diskus 03/20/2020 12:00:00 AM EDT RESPIRATORY active [facility] ([facility]) Insurance Providers Payer name Policy type / Coverage type Policy ID Covered libertarian ID Covered libertarian's relationship to macias Policy Macias Plan Information MEDICARE [id number] SP [id number] 0C1 MEDICARE [id number] Tamara [id number] 0C1 MEDICARE [id number] SP [id number] 0C1 MEDICARE [id number] SP [id number] 0C1 MEDICARE 4 [id number] 1 [id number] 0C1 MEDICARE A [id number] Self [id number] 0C1 MEDICAID [facility] [id number] SP CG [id number] MEDICAID [facility] [id number] SP CG [id number] MEDICAID [facility] [id number] SP CG [id number] MEDICAID M [id number] Self [id number] MEDICAID [facility] [id number] SP CG [id number] MEDICAID [facility] [id number] SP CG [id number] MEDICAID [facility] [id number] SP CG [id number] MEDICAID [facility] [id number] SP CG [id number] Medicaid [facility] S D [id number] SELF [id number] Medicare C [id number] SELF [id number] 0C1 Medicare C [id number] SELF [id number] 0C1 Medicaid [facility] S D [id number] SELF [id number] Medicare C [id number] SELF [id number] 0C1 Medicare C [id number] SELF [id number] A Medicaid [facility] S D [id number] SELF [id number] MEDICAID [facility] [id number] SP CG [id number] MEDICAID [facility] [id number] SP CG [id number] MEDICAID [facility] [id number] SP CG [id number] MEDICAID [facility] [id number] SP CG [id number] MEDICAID [facility] [id number] SP CG [id number] MEDICAID [facility] [id number] SP CG [id number] MEDICARE [id number] SP [id number] [facility] HUMANA [id number] 2 [id number] [place]/307 [id number] SP [id number] [place] [id number] WI2 [id number] [facility] [id number] HU2 [id number] A [id number] S [id number] BLUE CROSS OTHER 1 [id number] SP [id number] MEDICAID [id number] SP [id number] SELFPAY 5 UNAVAILABLE 1 [place]NA[place] BLE BCBS [place] 302/307 [id number] HU2 [id number] [place] [id number] SP [id number] Q W UNAVAILABLE UNAVAILA BLE [place] [id number] SP [id number] [place] 090/590 [id number] WI2 [id number] [facility] BCBS B [id number] S M [id number] MEDICAID [place] [id number] Patient is Insured [id number] [place] [id number] Patient is Insured [id number] [place] Medicaid [id number] Self Medicare [facility] Medicare Primary [id number] Self [place] [id number] S [id number] Medicaid/Medicare Meditraver Part B [id number] Self Medicare Medicare Primary [id number] Self [place] 302/307 [id number] WI2 [id number] [place] 090/590 [id number] [place]2 [id number] MEDICAID 3 [id number] [place] -OP [id number] 18 [id number] [facility] HUMANA - O/P [id number] 01 [id number] MEDICAID -O/P EMERGENCY ROOM [id number] ANSI-Not a Secondary Insurance [id number] ANSI-Not a Secondary Insurance [id number] ANSI-Not a Secondary Insurance [id number] ANSI-Not a Secondary Insurance [id number] ANSI-Not a Secondary Insurance [id number] ANSI-Not a Secondary Insurance [id number] [place]/307 [id number] HU2 [id number] ABBY [id number] SP [id number] UNAVAILABLE UNAVAILA BLE MEDICAID HEA [id number] S [id number] MEDICARE [facility] [id number] S [id number] MEDICARE [facility] [id number] S [id number] Problems, Conditions, and Diagnoses Code Display Name Description Problem Type Effective Dates Data Source(s) F41.9 Anxiety disorder Anxiety disorder, unspecified Problem 04/24/2021 12:00:00 AM EST eCW1 ([facility]) N94.10 Pain in female genitalia on intercourse Dyspareunia in female Problem 03/27/2021 12:00:00 AM EDT eCW1 ([facility]) E55.9 [id number] Vitamin D deficiency Problem 11/01/2020 12:0 0:00 AM EDT eCW1 ([facility]) F17.211 [id number] Cigarette nicotine dependence in remissio n Problem 11/01/2020 12:00:00 AM EDT eCW1 ([facility]) Z34.80 care Supervision of other normal P cirom 10/07/2020 12:00:00 AM EDT eCW1 ([facility]) R00.2 Palpitations Palpitations Problem 08/14/2020 12:00:00 A M EST MEDENT ([facility]) R07.9 Chest pain Chest pain Problem 08/14/2020 12:00:00 AM ES T MEDENT ([facility]) F17.210 Tobacco user Tobacco user Problem 08/14/2020 12:00:00 A M EST MEDENT ([facility]) Z71.6 Counseling about tobacco use Counseling about tobacco use Problem 08/14/2020 12:00:00 AM EST MEDENT ([facility]) R55 Syncope and collapse Syncope and collapse Problem 08/14/2020 12:00:00 AM EST MEDENT ([facility]) R06.02 Dyspnea Dyspnea Problem 08/14/2020 12:00:00 AM ES T MEDENT ([facility]) N20.0 Renal calculus Renal calculi Problem 07/11/2020 12:00:0 0 AM EST eCW1 ([facility]) M54.40 Sciatica Acute left-sided low back pain with sciatica, sciatica laterality unspecified Problem 04/18/2020 12:00:00 AM EST eCW1 ([facility]) Surgeries/Procedures Procedure Description Date Indications Data Source(s) TDAP VACCINE 7/> YR IM 03/06/2021 12:00:00 AM EDT eCW1 ([facility]) ECHO TTHRC R-T 2D W/WOM-MODE COMPL SPEC&COLR DOP 12/02 12:00:00 AM EDT MEDENT ([facility]) TOBACCO USE CESSATION INTERMEDIATE 3-10 MINUTES 2020 12:00:00 AM EST MEDENT ([facility]) OFFICE OUTPATIENT NEW 45 MINUTES 08/14/2020 12:00:00 A M EST MEDENT ([facility]) ECG ROUTINE ECG W/LEAST 12 LDS W/I&R 08/14/2020 12:00: 00 AM EST MEDENT ([facility]) PROF GALLO ALLG IMMNTX X W/PRV ALLGIC XTRCS NJXS 2019 12:00:00 AM EDT MEDENT ([facility]) PREPJ& ALLERGEN IMMUNOTHERAPY 1/STRUCTURAL STEEL ERECTOR ANTIGEN 03/21/2020 12:00:00 AM EDT MEDENT ([facility]) BRNCDILAT RSPSE SPMTRY PRE&POST-BRNCDILAT ADMN 020 12:00:00 AM EDT MEDENT ([facility]) Results ID Date Data Source [id number] 05/10/2021 11:10:00 AM EST [facility] Name Value Range Interpretation Code Description Data Bernadette rce(s) Supporting Document(s) SARS-CoV-2 (COVID-19) RNA [Presence] in Respiratory specimen by THANH with probe detection Not Detected [facility] This lab was ordered by [facility] and reported by [employer]. ID Date Data Source [id number] 05/05/2021 12:00:00 AM EST [facility] Name Value Range Interpretation Code Description Data Bernadette rce(s) Supporting Document(s) SARS-COV 2 PCR (NASAL SWAB) NEGATIVE [place] [facility] This lab was ordered by Ignacia Mcdonald #4 and reported by [employer]. ID Date Data Source [id number] 05/05/2021 12:00:00 AM EST [facility] Name Value Range Interpretation Code Description Data Bernadette rce(s) Supporting Document(s) SARS-CoV-2 (COVID-19) RNA [Presence] in Respiratory specimen by THANH with probe detection Not detected [facility] This lab was ordered by [facility] and r eported by [facility]. ID Date Data Source [id number] 03/28/2021 12:00:00 AM EDT [facility] Name Value Range Interpretation Code Description Data Bernadette rce(s) Supporting Document(s) SARS-CoV-2 (COVID-19) RNA [Presence] in Respiratory specimen by THANH with probe detection Not detected [facility] This lab was ordered by [facility] and r eported by [facility]. ID Date Data Source [id number] 03/28/2021 12:00:00 AM EDT [facility] Name Value Range Interpretation Code Description Data Bernadette rce(s) Supporting Document(s) SARS-COV 2 PCR NEGATIVE [facility] This lab was ordered by Ign[facility]cd[facility] #[facility] and reported by [employer]. ID Date Data Source VITAMIN D [id number] 11/01/2020 12:00:00 AM EDT eCW1 ([facility]) Name Value Range Interpretation Code Description Data Bernadette rce(s) Supporting Document(s) 18.1 30.0-100.0 TOTAL 25(OH) VITAMIN D eC W1 ([facility]) ID Date Data Source [id number] 10/09/2020 12:00:00 AM EDT eCW1 ([facility]) Name Value Range Interpretation Code Description Data Bernadette rce(s) Supporting Document(s) NEGATIVE NEGATIVE HBsAg eCW1 ([facility]) ID Date Data Source RUBELLA IMMUNE STATUS IgG 10/09/2020 12:00:00 AM EDT eCW1 ([facility]) Name Value Range Interpretation Code Description Data Bernadette rce(s) Supporting Document(s) IMMUNE IMMUNE RUBELLA IgG QUALITATIVE eCW1 ( [facility]) ID Date Data Source SYPHILIS ANTIBODY (RPR SCREEN) 10/09/2020 12:00:00 AM EDT eC W1 ([facility]) Name Value Range Interpretation Code Description Data Bernadette rce(s) Supporting Document(s) NONREACTIVE NONREACTIVE SYPHILIS eCW1 ([facility]) ID Date Data Source [id number] 10/09/2020 12:00:00 AM EDT eCW1 ([facility]) Name Value Range Interpretation Code Description Data Bernadette rce(s) Supporting Document(s) HIV 1&2 ANTIBODY SCREEN eCW1 ( [facility]) ID Date Data Source HEPATITIS C ANTIBODY INDEX 10/09/2020 12:00:00 AM EDT eCW1 ( [facility]) Name Value Range Interpretation Code Description Data Bernadette rce(s) Supporting Document(s) < 0.0 <0.8 HEPATITIS C VIRUS ALIVIA IND EX eCW1 ([facility]) ID Date Data Source CBC - Complete Blood Count 10/09/2020 12:00:00 AM EDT eCW1 ( [facility]) Name Value Range Interpretation Code Description Data Bernadette rce(s) Supporting Document(s) 4.85 4.00-5.40 RED BLOOD COUNT eCW1 ([facility]) 7.9 4.0-10.0 WHITE BLOOD COUNT eCW1 ([facility]) 14.0 12.0-15.5 HEMOGLOBIN eCW1 ([facility]) 43.0 36.0-47.0 HEMATOCRIT eCW1 ([facility]) 88.7 80.0-96.0 MEAN CORPUSCULAR VOLUME e CW1 ([facility]) 12.4 11.5-14.5 RED CELL DISTRIBUTION WID TH eCW1 ([facility]) 32.6 32.0-36.5 MEAN CORPUSCULAR HGB CONC eCW1 ([facility]) 28.9 27.0-33.0 MEAN CORPUSCULAR HEMOGLOB IN eCW1 ([facility]) 261 150-450 PLATELET COUNT, AUTOMATED eCW1 ([facility]) ID Date Data Source Type and Screen Prenatal1 10/09/2020 12:00:00 AM EDT eCW1 ([facility]) Name Value Range Interpretation Code Description Data Bernadette rce(s) Supporting Document(s) NEGATIVE AB SCREEN PNP1 GEL (VIS) eCW1 ([facility]) ID Date Data Source [id number] 07/19/2020 01:59:00 PM EST MEDENT ([facility]) Name Value Range Interpretation Code Description Data Bernadette rce(s) Supporting Document(s) Calcium [Mass/volume] in Serum or Plasma 9.0 MEDENT ([facility]) Alanine aminotransferase [Enzymatic activity/volume] in Serum or Pl asma 37 MEDENT ([facility]) Albumin [Mass/volume] in Serum or Plasma 3.6 MEDENT ([facility]) Chloride [Moles/volume] in Serum or Plasma 108 MEDENT ([facility]) Alkaline phosphatase [Enzymatic activity/volume] in Serum or Plasma 7 6 MEDENT ([facility]) Carbon dioxide, total [Moles/volume] in Serum or Plasma 25 MEDENT ([facility]) Protein [Mass/volume] in Serum or Plasma 6.6 MEDENT ([facility]) Potassium [Moles/volume] in Serum or Plasma 4.1 MEDENT ([facility]) Aspartate aminotransferase [Enzymatic activity/volume] in Serum or Plasma 16 MEDENT ([facility]) Sodium 139 [facility] Glucose 86 70-100 MEDENT ([facility]) Urea nitrogen [Mass/volume] in Serum or Plasma 8 MEDENT ([facility]) Creatinine For GFR 0.70 MEDENT ([facility]) ID Date Data Source [id number] 07/19/2020 01:59:00 PM EST [facility] Name Value Range Interpretation Code Description Data Bernadette rce(s) Supporting Document(s) CPK-MB Laboratory test result MEDENT ([facility]) Creatine kinase [Enzymatic activity/volume] in Serum or Plasma 48 MEDENT ([facility]) ID Date Data Source [id number] 07/19/2020 01:59:00 PM EST [facility] Name Value Range Interpretation Code Description Data Bernadette rce(s) Supporting Document(s) Magnesium Level 1.9 1.8-2.4 MEDENT ([facility]) Thyroid Stimulating Hormone 0.881 ME DENT ([facility]) Free T4 1.08 MEDENT ([facility]) Troponin Laboratory test result MEDENT ([facility]) Lipoprotein lipase [Enzymatic activity/volume] in Serum or Plasma 159 MEDENT ([facility]) ID Date Data Source [id number] 07/19/2020 01:59:00 PM EST [facility] Name Value Range Interpretation Code Description Data Bernadette rce(s) Supporting Document(s) Red Blood Count 4.66 4.00-5.40 MEDENT ([facility]) White Blood Count 5.0 4.0-10.0 MEDENT ([facility]) Hemoglobin 13.4 MEDENT ([facility]) Platelets 203 150-450 [facility] Hematocrit 40.7 MEDENT ([facility]) Procedure Social History Code Duration Value Status Description Data Source(s ) Smoking 05/07/2021 12:00:00 AM EST Former Smoker completed Former Smoker eCW1 ([facility]) Smoking 04/30/2021 12:00:00 AM EST Former Smoker completed Former Smoker eCW1 ([facility]) Smoking 04/30/2021 12:00:00 AM EST Former Smoker completed Former Smoker eCW1 ([facility]) Smoking 04/30/2021 12:00:00 AM EST Former Smoker completed Former Smoker eCW1 ([facility]) Smoking 04/30/2021 12:00:00 AM EST Former Smoker completed Former Smoker eCW1 ([facility]) Smoking 04/24/2021 12:00:00 AM EST Former Smoker completed Former Smoker eCW1 ([facility]) Smoking 02/27/2021 12:00:00 AM EDT Former Smoker completed Former Smoker eCW1 ([facility]) Smoking 02/27/2021 12:00:00 AM EDT Former Smoker completed Former Smoker eCW1 ([facility]) Smoking 02/27/2021 12:00:00 AM EDT Former Smoker completed Former Smoker eCW1 ([facility]) Smoking 02/03/2021 12:00:00 AM EDT Former Smoker completed Former Smoker eCW1 ([facility]) Smoking 01/01/2021 12:00:00 AM EDT Former Smoker completed Former Smoker eCW1 ([facility]) Smoking 01/01/2021 12:00:00 AM EDT Former Smoker completed Former Smoker eCW1 ([facility]) Smoking 01/01/2021 12:00:00 AM EDT Former Smoker completed Former Smoker eCW1 ([facility]) Smoking 01/01/2021 12:00:00 AM EDT Former Smoker completed Former Smoker eCW1 ([facility]) Smoking 12/04/2020 12:00:00 AM EDT Former Smoker completed Former Smoker eCW1 ([facility]) Smoking 11/06/2020 12:00:00 AM EDT Former Smoker completed Former Smoker eCW1 ([facility]) Smoking 11/06/2020 12:00:00 AM EDT Former Smoker completed Former Smoker eCW1 ([facility]) Smoking 11/01/2020 12:00:00 AM EDT Former Smoker completed Former Smoker eCW1 ([facility]) Smoking 10/09/2020 12:00:00 AM EDT Former Smoker completed Former Smoker eCW1 ([facility]) Smoking 08/08/2020 12:00:00 AM EST Current some day smoker com pleted Current some day smoker eCW1 ([facility]) Smoking 08/08/2020 12:00:00 AM EST Current some day smoker com pleted Current some day smoker eCW1 ([facility]) Smoking 04/18/2020 12:00:00 AM EST Current some day smoker com pleted Current some day smoker eCW1 ([facility]) Smoking 04/18/2020 12:00:00 AM EST Current some day smoker com pleted Current some day smoker eCW1 ([facility]) Smoking 04/18/2020 12:00:00 AM EST Current some day smoker com pleted Current some day smoker eCW1 ([facility]) Smoking 04/18/2020 12:00:00 AM EST Current some day smoker com pleted Current some day smoker eCW1 ([facility]) Smoking 04/18/2020 12:00:00 AM EST Current some day smoker com pleted Current some day smoker eCW1 ([facility]) Vital Signs ID Date Data Source UNK Name Value Range Interpretation Code Description Data Source(s) Body weight 136.2 [lb_av] 136.2 [lb_av] W ([facility]) Body weight 61.78 kg 61.78 kg [facility] ([facility]) Body height 64 [in_i] 64 [in_i] [facility] ([facility]) Body mass index (BMI) [Ratio] 23.379 kg/m2 23.3 79 kg/m2 [facility] ([facility]) Systolic blood pressure 110 mm[Hg] 110 mm[Hg] e CW1 ([facility]) Diastolic blood pressure 64 mm[Hg] 64 mm[Hg] eCW1 ([facility]) Body weight 135.2 [lb_av] 135.2 [lb_av] eCW1 ([facility]) Body weight 61.33 kg 61.33 kg eCW1 ([facility]) Body height 64 [in_i] 64 [in_i] eCW1 ([facility]) Body mass index (BMI) [Ratio] 23.207 kg/m2 23.2 07 kg/m2 eCW1 ([facility]) Systolic blood pressure 104 mm[Hg] 104 mm[Hg] e CW1 ([facility]) Diastolic blood pressure 64 mm[Hg] 64 mm[Hg] eCW1 ([facility]) Body weight 133 [lb_av] 133 [lb_av] eCW1 ([facility]) Body weight 60.33 kg 60.33 kg eCW1 ([facility]) Body height 64 [in_i] 64 [in_i] eCW1 ([facility]) Body mass index (BMI) [Ratio] 22.829 kg/m2 22.8 29 kg/m2 eCW1 ([facility]) Systolic blood pressure 102 mm[Hg] 102 mm[Hg] e CW1 ([facility]) Diastolic blood pressure 60 mm[Hg] 60 mm[Hg] eCW1 ([facility]) Body weight 131.2 [lb_av] 131.2 [lb_av] eCW1 ([facility]) Body weight 59.51 kg 59.51 kg eCW1 ([facility]) Body height 64 [in_i] 64 [in_i] eCW1 ([facility]) Body mass index (BMI) [Ratio] 22.52 kg/m2 22.52 kg/m2 eCW1 ([facility]) Systolic blood pressure 102 mm[Hg] 102 mm[Hg] e CW1 ([facility]) Diastolic blood pressure 60 mm[Hg] 60 mm[Hg] eCW1 ([facility]) Body weight 125.8 [lb_av] 125.8 [lb_av] eCW1 ([facility]) Body height 64 [in_i] 64 [in_i] eCW1 ([facility]) Body mass index (BMI) [Ratio] 21.594 kg/m2 21.5 94 kg/m2 eCW1 ([facility]) Systolic blood pressure 96 mm[Hg] 96 mm[Hg] e CW1 ([facility]) Diastolic blood pressure 60 mm[Hg] 60 mm[Hg] eCW1 ([facility]) Body weight 119.0 [lb_av] 119.0 [lb_av] eCW1 ([facility]) Body weight 53.98 kg 53.98 kg eCW1 ([facility]) Body height 64 [in_i] 64 [in_i] eCW1 ([facility]) Body mass index (BMI) [Ratio] 20.426 kg/m2 20.4 26 kg/m2 eCW1 ([facility]) Systolic blood pressure 104 mm[Hg] 104 mm[Hg] e CW1 ([facility]) Diastolic blood pressure 64 mm[Hg] 64 mm[Hg] eCW1 ([facility]) Body weight 113 [lb_av] 113 [lb_av] eCW1 ([facility]) Body weight 51.26 kg 51.26 kg eCW1 ([facility]) Body height 64 [in_i] 64 [in_i] eCW1 ([facility]) Body mass index (BMI) [Ratio] 19.396 kg/m2 19.3 96 kg/m2 eCW1 ([facility]) Systolic blood pressure 102 mm[Hg] 102 mm[Hg] e CW1 ([facility]) Diastolic blood pressure 64 mm[Hg] 64 mm[Hg] eCW1 ([facility]) Body weight 108 [lb_av] 108 [lb_av] eCW1 ([facility]) Body weight 48.99 kg 48.99 kg eCW1 ([facility]) Body height 64 [in_i] 64 [in_i] eCW1 ([facility]) Body mass index (BMI) [Ratio] 18.538 kg/m2 18.5 38 kg/m2 eCW1 ([facility]) Systolic blood pressure 100 mm[Hg] 100 mm[Hg] e CW1 ([facility]) Diastolic blood pressure 60 mm[Hg] 60 mm[Hg] eCW1 ([facility]) Body weight 107.2 [lb_av] 107.2 [lb_av] eCW1 ([facility]) Body height 64 [in_i] 64 [in_i] eCW1 ([facility]) Body mass index (BMI) [Ratio] 18.401 kg/m2 18.4 01 kg/m2 eCW1 ([facility]) Systolic blood pressure 100 mm[Hg] 100 mm[Hg] e CW1 ([facility]) Diastolic blood pressure 68 mm[Hg] 68 mm[Hg] eCW1 ([facility]) Body weight 106 [lb_av] 106 [lb_av] eCW1 ([facility]) Body height 64 [in_i] 64 [in_i] eCW1 ([facility]) Body mass index (BMI) [Ratio] 18.19 kg/m2 18.19 kg/m2 eCW1 ([facility]) Heart rate 139 /min 139 /min eCW1 ([facility]) Respiratory rate 18 /min 18 /min eCW1 ([facility]) Body temperature 97.6 [degF] 97.6 [degF] eCW1 ( [facility]) Systolic blood pressure 96 mm[Hg] 96 mm[Hg] e CW1 ([facility]) Diastolic blood pressure 62 mm[Hg] 62 mm[Hg] eCW1 ([facility]) Body weight 105 [lb_av] 105 [lb_av] eCW1 ([facility]) Body height 64 [in_i] 64 [in_i] eCW1 ([facility]) Body mass index (BMI) [Ratio] 18.023 kg/m2 18.0 23 kg/m2 eCW1 ([facility]) Systolic blood pressure 98 mm[Hg] 98 mm[Hg] e CW1 ([facility]) Diastolic blood pressure 60 mm[Hg] 60 mm[Hg] eCW1 ([facility]) Systolic blood pressure 110 mm[Hg] 110 mm[Hg] M EDENT ([facility]) Diastolic blood pressure 70 mm[Hg] 70 mm[Hg] MEDENT ([facility]) Body height 64 [in_i] 64 [in_i] MEDENT ([facility]) 5'4" Body weight 107.00 [lb_av] 107.00 [lb_av] MEDEN T ([facility]) Body mass index (BMI) [Ratio] 18.4 kg/m2 18.4 k g/m2 MEDENT ([facility]) [place] body weight 120 [lb_av] 120 [lb_av] MEDEN T ([facility]) Body weight 48.535 kg 48.535 kg [facility] ([facility]) Body surface area Derived from formula 1.50 m2 1.50 m2 [facility] ([facility]) Diastolic blood pressure--sitting 67 mm[Hg] 67 mm[Hg] MEDENT ([facility]) [place], adult cuff/Ra Systolic blood pressure--sitting 97 mm[Hg] 97 mm[Hg] MEDENT ([facility]) [place], adult cuff/Ra Heart rate 96 /min 96 /min MEDENT ([facility]) Body mass index (BMI) [Ratio] 18.2 kg/m2 18.2 k g/m2 MED[facility] ([facility] [facility]) Body height 64 [in_i] 64 [in_i] MEDENT ([facility]) 5'4" Body weight 106.00 [lb_av] 106.00 [lb_av] MEDEN T ([facility]) Body weight 109 [lb_av] 109 [lb_av] eCW1 ([facility]) Body height 64 [in_i] 64 [in_i] eCW1 ([facility]) Body mass index (BMI) [Ratio] 18.71 kg/m2 18.71 kg/m2 eCW1 ([facility]) Heart rate 130 /min 130 /min eCW1 ([facility]) Respiratory rate 18 /min 18 /min eCW1 ([facility]) Body temperature 96.6 [degF] 96.6 [degF] eCW1 ( [facility]) Systolic blood pressure 90 mm[Hg] 90 mm[Hg] e CW1 ([facility]) Diastolic blood pressure 66 mm[Hg] 66 mm[Hg] eCW1 ([facility]) Body weight 109 [lb_av] 109 [lb_av] eCW1 ([facility]) Body height 64 [in_i] 64 [in_i] eCW1 ([facility]) Body mass index (BMI) [Ratio] 18.71 kg/m2 18.71 kg/m2 eCW1 ([facility]) Heart rate 95 /min 95 /min eCW1 ([facility]) Respiratory rate 18 /min 18 /min eCW1 ([facility]) Body temperature 97.5 [degF] 97.5 [degF] eCW1 ( [facility]) Systolic blood pressure 104 mm[Hg] 104 mm[Hg] e CW1 ([facility]) Diastolic blood pressure 76 mm[Hg] 76 mm[Hg] eCW1 ([facility]) Body height 63 [in_i] 63 [in_i] MEDENT ([facility] 5'3" Heart rate 110 /min 110 /min MEDENT ([facility] Respiratory rate 18 /min 18 /min MEDENT ( [facility]) Systolic blood pressure 95 mm[Hg] 95 mm[Hg] M EDENT ([facility]) Diastolic blood pressure 64 mm[Hg] 64 mm[Hg] MEDENT ([facility]) Body mass index (BMI) [Ratio] 18.6 kg/m2 18.6 k g/m2 MEDENT ([facility]) Body weight 105.00 [lb_av] 105.00 [lb_av] MEDEN T ([facility]) Patient Treatment Plan of Care Planned Activity Planned Date Details Description Data Source (s) Sertraline 25 MG Oral Tablet [Zoloft] 04/24/2021 12:00:00 AM EST eCW1 ([facility]) Phenazopyridine hydrochloride 100 MG Oral Tablet [Pyri dium] 02/03/2021 12:00:00 AM EDT eCW1 ([facility]) Phenazopyridine hydrochloride 100 MG Oral Tablet [Pyri dium] 02/03/2021 12:00:00 AM EDT eCW1 ([facility]) Omeprazole 20 MG Delayed Release Oral Capsule 01/22/2021 12:00:00 A M EDT eCW1 ([facility]) 0.3 ML Epinephrine 1 MG/ML Auto-Injector [Epipen] 11/01/2020 12: 00:00 AM EDT eCW1 ([facility]) Ondansetron 4 MG Disintegrating Oral Tablet 10/09/2020 12:00:00 AM EDT eCW1 ([facility])
[2021-05-12] MEDS ORDERED: LACTATED RINGER'S 1000 ML IV STA (14:01)
[2021-05-12] MEDS ORDERED: OXYTOCIN DRIP 30 UNITS in IV 1 EA IV PRN (14:05)
[2021-05-12] MEDS ORDERED: CARBOPROST TROMETHAMINE 250 MCG/ML AMP IM PRN (14:05)
[2021-05-12] MEDS ORDERED: BICITRA 30ML SOLN UDC PO ONE (14:05)
[2021-05-12] MEDS ORDERED: METHYLERGONOVINE MALEATE 0.2 MG/ML VIAL (J2210) IM PRN (14:05)
[2021-05-12] MEDS ORDERED: LR 1,000 ML IV SCH ×2 (14:05→19:40)
[2021-05-12] MEDS ORDERED: CLINDAMYCIN 900 MG in IV 1 EA IV ONE (14:05)
[2021-05-12] MEDS ORDERED: TRANEXAMIC ACID INJection 1,000 MG in NS 100 ML IV PRN (14:05)
--- NOTE | 2021-05-12 14:25 | HPEPDOC ---
Obstetrical History & Physical General Date of Admission May 12, 2021 at 13:49 Primary Care Physician: UDAY VELASQUEZ CNM History of Present Illness Mechelle is a 30-year-old female who is a at 38.4 weeks gestation with an EFRA of 05/22/21 based off of her LMP and consistent with her first trimester ultrasound. She initiated care in her first trimester of . Her has been complicated breech presentation. She had an unsuccessful external cephalic version done on 04/24/21. She presents today with complaints of a gush of fluid that occurred at 212905/11/21 and she continued to leak for about 15 minutes but reports she didn't have anything else after that. She denies vaginal bleeding. She reports active movement and occasional contractions. Chief Complaint: LOF, term, Other (breech presentation) Information Provided By: Patient Age: 30 : 2 Term: 0 Pre-term: 0 Abortions: 1 Livin Care Care: Good Care Dating Final EDC: May 22, 2021 Final EDC by: LMP EGA at Admission: 38.4 Antepartum Course Diagnos(e)s breech presentation Height (inches): 64 Pre- weight (lbs.): 105 Admission Weight (lbs.): 135 Change in Weight (lbs.): 30 Past Medical History [employer] History: Spontaneous , Abnormal Pap, Human papillomavirus(HPV) Past Medical History Medical History multiple allergies Asthma-mild persistent Stress induced seizures Scoliosis Migraines Depression/anxiety GERD IBS Endometriosis palpitations with syncope-sees Dr. Sharma interstitial cystitis Surgical History: Tonsilectomy (with adenoidectomy), Other (cystoscopy with bladder expansion; bilateral repair of tympanic membane perferations. ) Family History Significant Family History: Asthma, Cancer (colon cancer, ovarian cancer, leukemia, lung cancer), Diabetes, Heart disease, Seizures Social History Social history unemployed Marital Status: Family situation: Spouse/partner home Psychosocial History: Anxiety * Smoker: former Smoker Alcohol: Denies Drugs: denies Abuse Violence Screening Have you been sexually assault: No Allergies Coded Allergies: Pork (Verified Allergy, Severe, anaphylaxis, 07/19/20) acetaminophen (Verified Allergy, Severe, 05/12/21) Pt states she can take liquid acetaminophen. States anaphylaxis to the pill form. Anaphylactic reaction to the pill form. ibuprofen (Verified Allergy, Severe, 05/02/21) PT states she can take liquid ibuprofen peanut oil (Verified Allergy, Severe, anaphylaxis, 07/19/20) [place] (Verified Allergy, Intermediate, stomach pain, rash, 07/19/20) Black Pepper (Verified Allergy, Intermediate, throat irritation, stomach pain, 07/19/20) Olives (Verified Allergy, Intermediate, lip swelling, 07/19/20) amoxicillin (Verified Allergy, Intermediate, rash, 07/19/20) clavulanic acid (Verified Allergy, Intermediate, rash, 07/19/20) peanut (Verified Allergy, Intermediate, stamoach pain, 07/19/20) raspberry (Verified Allergy, Intermediate, anaphylaxis, 07/19/20) shrimp (Verified Allergy, Intermediate, unk, 07/19/20) came up on allergy test list FISH (Verified Allergy, Unknown, 05/12/21) rice (Verified Allergy, Unknown, [place], 07/19/20) chocolate flavor (Verified Adverse Reaction, Intermediate, ABD PAIN,DIARRHEA, 07/19/20) corn (Verified Adverse Reaction, Intermediate, stomach pain, 07/19/20) egg (Verified Adverse Reaction, Intermediate, abd pain, 07/19/20) soy (Verified Adverse Reaction, Intermediate, vomit, 07/19/20) wheat (Verified Adverse Reaction, Intermediate, stomach pain, 07/19/20) Medications Scheduled Calcium Carbonate (Tums) 300 Mg Tab.chew, 1 TAB PO BID Vit37/Iron/Folic Acid (Prenata Chewable Tablet) 1 Each Tab.chew, 1 TAB PO DAILY Vitamin D3/Folic Acid (Noxifol-D3 2,500 Unit-1 mg Tab) 2,500 Unit Tablet, 1 TAB PO DAILY Scheduled PRN Omeprazole (Omeprazole) 10 Mg Capsule.dr, 20 MG PO DAILY PRN for GI UPSET Ondansetron HCl (Zofran) 4 Mg Tablet, 1 TAB PO Q6-8HP PRN for nausea/vomiting Physical Examination Physical Examination GENERAL: Alert and oriented times three. ABDOMEN: Gravid and non-tender to touch. FETUS: Breech by bedside ultrasound with ELAINA of 1.8 cm. LUNGS: Respiratory rate is regular without use of accessory muscles. EXTREMITIES: No edema. No clonus. Deep tendon reflexes (DTRs) + 2. SSE: Cervix appears closed and thick. Moderate amount of thick white discharge but no pooling of fluid. Nitrazine is negative. Fern negative. Vital Signs/I&O Vital Signs Date Time Temp Pulse Resp B/P (MAP) Pulse Ox O2 Delivery O2 Flow Rate FiO2 05/12/21 11:08 98.4 110 18 127/73 (91) 99 Room Air Laboratory Data CBC/BMP Item Value Date Time White Blood Count 10.2 10^3/uL H 05/12/21 1628 Red Blood Count 3.74 10^6/uL L 05/12/21 1628 Hemoglobin 10.3 g/dl L 05/12/21 1628 Mean Corpuscular Volume 85.6 fl 05/12/21 1628 Hematocrit 32.0 % L 05/12/21 1628 Mean Corpuscular Hemoglobin 27.5 pg 05/12/21 1628 Mean Corpuscular Hemoglobin Concent 32.2 g/dl 05/12/21 1628 Red Cell Distribution Width 13.8 % 05/12/21 1628 Platelet Count 186 10^3/uL 05/12/21 1628 Pertinent Laboratoy Data Blood Type: AB+ RBC Antibody Screen: Negative HIV: Negative Hepatitis B: Negative Hepatitis C: Negative Rapid Plasma Reagin: Nonreactive Rubella: Immune Chlamydia/Gonorrhea: Negative Group B Streptococcus: Negative Glucose Tolerance Test: 165 Diag/Inter Therapy 3 hour GTT: 68, 98, 136, 47 Vaginal Examination Presentation: Breech presentation Assessment Heart Rate (FHR): 135 Variability: Moderate Accelerations: Positive Decelerations: None Tocometer Contractions: Yes Frequency: irregular Multi-drug resistant Organism: No history of MDRO Assessment/Plan Assessment IUP at 38.4 weeks gestation spontaneous rupture of membranes breech presentation Category I FHR tracing. Plan Admit to labor and delivery. OOB ad sanjeev. NPO. Reviewed findings of ELAINA of 1.8 with likely SROM yesterday with Dr. Emanuel. Plan for section today rather than . Group B Streptococcus (GBS) negative. Labs and intravenous (IV) per unit protocol. Lactated Ringers (LR): Bolus 1000 mL, then at 125 mL/hr. Anesthesia notified. Antibiotics ordered and to be started. Bicitra ordered. Proceed with section around 1730 per discussion with anesthesia. UADY VELASQUEZ CNM May 12, 2021 14:25
[2021-05-12] MEDS ORDERED: D5W IV ONE (14:30)
[2021-05-12] MEDS ORDERED: GENTAMICIN IV ONE (14:30)
[2021-05-12 16:54] LABS: HEMOGLOBIN 10.3 g/dl (12.0-15.5); MEAN CORPUSCULAR HEMOGLOBIN 27.5 pg (27.0-33.0); MEAN CORPUSCULAR HGB CONC 32.2 g/dl (32.0-36.5); MEAN CORPUSCULAR VOLUME 85.6 fl (80.0-96.0); PLATELET COUNT, AUTOMATED 186 10^3/uL (150-450); RED BLOOD COUNT 3.74 10^6/uL (4.00-5.40); WHITE BLOOD COUNT 10.2 10^3/uL (4.0-10.0)
[2021-05-12] MEDS ORDERED: AZITHROMYCIN INJ 500 MG, VIAL MATE ADAPTER 1 EACH in NS 250 ML IV ONE (18:15)
[2021-05-12] MEDS ORDERED: ONDANSETRON 4MG/2ML VIAL As Ordered ONE (18:49)
[2021-05-12] MEDS ORDERED: OXYTOCIN INJ 10 UNITS/ML VIAL (J2590) As Ordered ONE (18:49)
[2021-05-12] MEDS ORDERED: MORPHINE PRES-FREE INJ 10 MG/10 ML VIAL (J2274) As Ordered ONE (18:49)
[2021-05-12] MEDS ORDERED: METOCLOPRAMIDE INJ 10MG/2ML VIAL (J2765 PER 1) As Ordered ONE (18:54)
[2021-05-12] MEDS ORDERED: PHENYLephrine 500MCG 5ML (100MCG/ML) SYRINGE As Ordered ONE (18:59)
[2021-05-12] MEDS ORDERED: ONDANSETRON 4MG/2ML VIAL IV PRN ×2 (19:40→20:10)
[2021-05-12] MEDS ORDERED: MEASLES,MUMPS,RUBELLA VACCINE INJ (MMR-II) (90707) SC SCH (19:40)
[2021-05-12] MEDS ORDERED: PERCOCET 5MG/325MG TAB PO PRN (19:40)
[2021-05-12] MEDS ORDERED: OXYTOCIN DRIP 30 UNITS in IV 1 EA IV SCH (19:40)
[2021-05-12] MEDS ORDERED: RHOGAM 300 MCG (1500 IU) INJ (J2790) IM SCH (19:40)
[2021-05-12] MEDS ORDERED: SIMETHICONE 80MG CHEW TAB PO PRN (19:40)
--- NOTE | 2021-05-12 19:52 | ROOPDOC ---
[facility] Report Of Operation Report of Operation DATE OF PROCEDURE: 05/12/2021 PREPROCEDURE DIAGNOSES: 38+3 weeks gestation, breech presentation, oligohydramnios POSTPROCEDURE DIAGNOSES: Same PROCEDURE: Primary low transverse section SURGEON: Nathen Emanuel DO FACOG PURCHASING ADMINISTRATOR: Harley Diego CNM (Essential role in retraction, extraction, and closure of all tissue layers) ANESTHESIA: Spinal ESTIMATED BLOOD LOSS: 500 mL. IV FLUIDS: 1000 mL LR URINE OUTPUT: 150 mL COMPLICATIONS: None. PREOPERATIVE ANTIBIOTICS: Clindamycin 900 mg IV x1, gentamicin 5 mg/kg IV, azithromycin 500mg IV. COMPLICATIONS: none DATA: Apgars 8 and 9. Birthweight 2990 g, 6 lbs 9 oz. SPECIMENS: none PRIMARY INDICATION FOR : Breech presentation DESCRIPTION OF PROCEDURE: The patient was counseled on the risks, benefits, indications and alternatives of the procedure. Informed consent was obtained. She was taken to the operating room with IV running and placed on the operating table in the dorsal supine position with a leftward tilt. Regional anesthesia was found to be adequate. Sequential compression devices were placed on the lower extremities. A Araujo catheter was placed under sterile conditions. She was prepared and draped in normal sterile fashion. A time out was performed per protocol. Regional anesthesia was again found to be adequate. A Pfannenstiel skin incision was made with the 10 blade. The 10 blade was used to dissect down to the level of the rectus sheath fascia. The rectus sheath pressure was incised midline and this was extended bilaterally with Garcia scissors , and manual stretch. The rectus muscle bellies were dissected off the rectus sheath fascia superiorly and inferiorly using both sharp and blunt diss ection. The midline was identified. The peritoneum was identified and entered digitally. The peritoneal opening was extended with manual stretch. The Mobius retractor was placed. The vesicouterine peritoneum was dissected with Metzenbaum scissors to create the bladder flap. A low transverse uterine incision was made with the 10 blade. This was extended with manual stretch. The amniotic sac was punctured, and clear fluid was noted. The baby delivered through the hysterotomy by performing typical breech maneuvers, without any difficulty/dystocia. The cord was doubly clamped and cut, and the baby was handed off to awaiting care. data shown above. Cord blood obtained. The placenta was removed manually. The intrauterine cavity was cleared of all clot and debris. The hysterotomy was closed with 0 Vicryl in running locked fashion. This was reinforced with a second imbricating layer using 0 Vicryl in running fashion. Excellent hemostasis of the hysterotomy was noted. The pelvis was irrigated and the fluid suctioned. The Mobius retractor was removed. The peritoneum was closed with 3-0 Vicryl running fashion. The rectus muscle bellies were reapproximated with interrupted stitches using 3-0 Vicryl. The rectus muscles bellies were hemostatic. The rectus sheath fascia was closed with 0 Vicryl running fashion. The subcutaneous layer was irrigated and the fluid suctioned. Small bleeding vessels were cauterized with Bovie. Excellent hemostasis was noted. The subcutaneous layer was reapproximated with 3-0 Vicryl running fashion. Skin was closed with 3-0 Monocryl in subcuticular fashion. An Optifoam bandage was placed over the closed incision. Sponge, needle and instrument counts were correct per protocol throughout the procedure. The bernabe ent tolerated the entire procedure very well. She was transferred to the PACU in stable condition. DO AMITA Munoz JONATHAN R. DO May 12, 2021 19:52
[2021-05-12] MEDS ORDERED: PERCOCET PO (19:54)
[2021-05-12] MEDS ORDERED: fentaNYL 100 MCG/2 ML INJECTION (J3010) As Ordered ONE (20:04)
[2021-05-12] MEDS ORDERED: MEPERIDINE INJ 25 MG/ML VIAL (J2175) IV PRN (20:10)
[2021-05-12] MEDS ORDERED: NALBUPHINE HCL 10 MG/ML AMP (J2300) IV PRN (20:10)
[2021-05-12] MEDS ORDERED: HYDROMORPHONE HCL 0.5 MG/ 0.5 ML SYRINGE (J1170 PER 1) IV PRN (20:10)
[2021-05-12] MEDS: fentaNYL 100 MCG/2 ML INJECTION (J3010) IV PRN ×3 (20:12→20:53)
[2021-05-12] MEDS ORDERED: OXYTOCIN 30 UNITS IN 0.9% NaCl 500ML IV BAG (J2590) As Ordered ONE (20:40)
[2021-05-12] MEDS ORDERED: KETOROLAC 30 MG/ML 1ML VIAL IV SCH (21:00)
[2021-05-12] MEDS: DOCUSATE SODIUM 100MG CAPSULE PO SCH (21:36)
[2021-05-12] MEDS ORDERED: diphenhydrAMINE 50MG/ML VIAL (J1200) IV STA (22:12)
[2021-05-13] VITALS (7 sets, daily range): BP systolic 109–129; BP diastolic 55–71
[2021-05-13] MEDS: PERCOCET 5MG/325MG TAB PO PRN ×4 (06:19→23:55)
[2021-05-13 07:15] LABS: HEMATOCRIT 32.1 % (36.0-47.0); HEMOGLOBIN 10.3 g/dl (12.0-15.5); MEAN CORPUSCULAR HEMOGLOBIN 27.4 pg (27.0-33.0); MEAN CORPUSCULAR HGB CONC 32.1 g/dl (32.0-36.5); MEAN CORPUSCULAR VOLUME 85.4 fl (80.0-96.0); PLATELET COUNT, AUTOMATED 169 10^3/uL (150-450); RED BLOOD COUNT 3.76 10^6/uL (4.00-5.40); WHITE BLOOD COUNT 11.5 10^3/uL (4.0-10.0)
--- NOTE | 2021-05-13 08:17 | IPNPDOC ---
Text Note Date of Service The patient was seen on 05/13/21. NOTE S: No complaints. Pt has not tried to get out of bed yet. O: AVSS NAD Abd: FF, dressing C/D/I ext: NT A/P 30 yo POD#1 s/p section D/C Araujo Cath. OOB, ambulate today routine post-op care VS,Fishbone, I+O VS, Fishbone, I+O Laboratory Tests 05/12/21 16:28 05/13/21 06:41 Vital Signs Date Time Temp Pulse Resp B/P (MAP) Pulse Ox O2 Delivery O2 Flow Rate FiO2 05/13/21 07:30 97.2 74 18 116/66 99 Room Air I&O- Last 24 Hours up to 6 AM 05/13/21 05:59 Intake Total 2355 ml Output Total 2650 ml Balance -295 ml RUTHY PITT MD May 13, 2021 08:17
[2021-05-13] MEDS: OMEPRAZOLE 20 MG CAP PO SCH (10:12)
[2021-05-13] MEDS: DOCUSATE SODIUM 100MG CAPSULE PO SCH ×2 (10:12→20:46)
[2021-05-13] MEDS: PRENATAL VITAMINS CHEWABLE TABLET PO SCH (10:12)
[2021-05-14 02:00] VITALS: BP 124/79
[2021-05-14 05:58] VITALS: BP 109/62
[2021-05-14] MEDS: PERCOCET 5MG/325MG TAB PO PRN ×2 (06:38→12:48)
[2021-05-14] MEDS: DOCUSATE SODIUM 100MG CAPSULE PO SCH (08:04)
[2021-05-14] MEDS: PRENATAL VITAMINS CHEWABLE TABLET PO SCH (08:04)
[2021-05-14] MEDS: OMEPRAZOLE 20 MG CAP PO SCH (08:04)
[2021-05-14 10:00] VITALS: BP 107/64
--- NOTE | 2021-05-14 11:50 | DSES ---
DISCHARGE SUMMARY DATE OF ADMISSION: 05/12/2021 DATE OF DISCHARGE: 05/14/2021 DISCHARGE DIAGNOSIS: Primary section. Postoperative day two. Stable condition. SURGEON: Nathen Emanuel DO INSURANCE COMPLIANCE ANALYST: Amelia Diego CNM BRIEF HISTORY: Mechelle is a 2, para 1-0-1-1 who was admitted with spontaneous rupture of membranes and breech presentation on 05/12/2021. She underwent a primary section. She delivered a live , 6 pounds, 9 ounces, 2990 gm. Apgars were 8 and 9. Estimated blood loss 500 mL. Surgery was uncomplicated. Postoperative course has been uncomplicated. She has been out of bed for self-care, fely-care and infant care. She is tolerating p.o. fluids and a regular diet, voiding without difficulty, passing flatus. Pain has been managed with p.o. Percocet. OBJECTIVE: Vital signs: Temperature 97.6, pulse 93, respirations 16, blood pressure 109/62. She is alert and oriented times three. Admission CBC on 05/12 with a hemoglobin of 10.3, hematocrit 32, platelets 186. Postoperative CBC on 05/12/2021: Hemoglobin 10.3, hematocrit 32.1, platelets 169. Her breasts are soft and nontender. Nipples are intact. Fundus is firm at one finger breadth below umbilicus. The incision with the Opti-Foam dressing applied. There is no new drainage observed. The perineum is intact. Lochia rubra scant. Bilateral lower extremities with negative edema. PLAN: Discharge the patient home. She is to follow up at [facility] for a two week incision check and an eight week visit. Prescriptions for pain medications have been prescribed to her pharmacy by Dr. Emanuel. I did review discharge instructions that include breast care, incision care, fely-care, pelvic rest, activity and lifting restrictions, danger signs to report to her provider and access to care. The patient and her partner have had their questions answered and do request discharge home.
== END 2021-05-14 14:24 | disposition home or self-care (01) | DRG 540 ==
LOC: M LDO 10:46 → M LDI 13:49 → M OBS 21:00
PROVIDERS: ADMIT Advanced Practice Midwife; ATTEND Obstetrics & Gynecology
PROC: 10D00Z1 Extraction of Products of Conception, Low, Open Approach (ICD-10-PCS; principal; 2021-05-12 17:27)
DX: O32.1XX0 Maternal care for breech presentation, not applicable or unspecified (principal); J45.20 Mild intermittent asthma, uncomplicated; Z3A.38 38 weeks gestation of pregnancy; O99.52 Diseases of the respiratory system complicating childbirth; O99.62 Diseases of the digestive system complicating childbirth; K21.9 Gastro-esophageal reflux disease without esophagitis; Z37.0 Single live birth

== ENCOUNTER → 2021-07-04 | Outpatient (REF) | payer BC, MEDICAID ==
[~2021-07-04] MED LIST changes: +PERCOCET PO
== END ==
LOC: M SFHCWAGY 12:46
PROVIDERS: ATTEND Obstetrics & Gynecology
DX: Z12.4 Encounter for screening for malignant neoplasm of cervix (principal); Z01.419 Encounter for gynecological examination (general) (routine) without abnormal findings

== ENCOUNTER → 2021-11-20 | Outpatient (REF) | payer BC, MEDICAID | LOC: M SFHCPLAZ 16:46 | PROVIDERS: ATTEND Physician Assistant | DX: Z20.822 Contact with and (suspected) exposure to COVID-19 (principal) ==

== ENCOUNTER → 2022-01-15 | Outpatient (REF) | payer BC, MEDICAID | LOC: M SFHCPLAZ 16:53 | PROVIDERS: ATTEND Physician Assistant | DX: R50.9 Fever, unspecified (principal) ==

== ENCOUNTER → 2022-02-04 | Outpatient (REF) | payer BC, MEDICAID | LOC: M SFHCADAM 12:38 | PROVIDERS: ATTEND Physician Assistant | DX: J02.9 Acute pharyngitis, unspecified (principal) ==

== ENCOUNTER → 2022-02-26 | Outpatient (CLI) | payer BC, MEDICAID ==
[2022-02-26 17:26] LABS: BASO % 0.3 % (0.0-1.0); EOS # 0.2 10^3/uL (0.0-0.5); EOS % 2.1 % (0.0-3.0); HEMATOCRIT 41.7 % (36.0-47.0); HEMOGLOBIN 13.1 g/dl (12.0-15.5); LYMPH # 1.9 10^3/uL (1.5-5.0); LYMPH % 20.5 % (24.0-44.0); MEAN CORPUSCULAR HEMOGLOBIN 27.8 pg (27.0-33.0); MEAN CORPUSCULAR HGB CONC 31.4 g/dl (32.0-36.5); MEAN CORPUSCULAR VOLUME 88.5 fl (80.0-96.0); MONO # 0.5 10^3/uL (0.0-0.8); MONO % 4.9 % (2.0-8.0); NEUTROPHILS # 6.6 10^3/uL (1.5-8.5); PLATELET COUNT, AUTOMATED 240 10^3/uL (150-450); RED BLOOD COUNT 4.71 10^6/uL (4.00-5.40); WHITE BLOOD COUNT 9.2 10^3/uL (4.0-10.0)
[2022-02-26 18:14] LABS: ALBUMIN 3.3 GM/DL (3.2-5.2); ALT/SGPT 22 U/L (12-78); BILIRUBIN,TOTAL 0.3 MG/DL (0.2-1.0); BLOOD UREA NITROGEN 6 MG/DL (7-18); CALCIUM LEVEL 8.8 MG/DL (8.5-10.1); CARBON DIOXIDE LEVEL 25 MEQ/L (21-32); CHLORIDE LEVEL 106 MEQ/L (98-107); CREATININE FOR GFR 0.72 MG/DL (0.55-1.30); FREE T4 1.21 NG/DL (0.76-1.46); GLOMERULAR FILTRATION RATE > 60.0 (>60); GLUCOSE, FASTING 69 MG/DL (70-100); IRON (FE) 51 UG/DL (50-170); PERCENT SATURATION 16.5 % (13.2-45.0); POTASSIUM SERUM 4.2 MEQ/L (3.5-5.1); SODIUM LEVEL 136 MEQ/L (136-145); TOTAL IRON BINDING CAPACITY 309 UG/DL (250-450); TOTAL PROTEIN 6.8 GM/DL (6.4-8.2)
[2022-02-26 18:58] LABS: TOTAL 25(OH) VITAMIN D 29.3 NG/ML (30.0-100.0)
[2022-02-26 18:59] LABS: VITAMIN B12 LEVEL 467 PG/ML (247-911)
== END ==
LOC: M PLALAB 15:40
PROVIDERS: ATTEND Physician Assistant
DX: R53.83 Other fatigue (principal)

== ENCOUNTER → 2022-02-27 | Outpatient (CLI) | payer BC, MEDICAID | LOC: M WHC 10:53 | PROVIDERS: ATTEND Obstetrics & Gynecology | DX: N93.9 Abnormal uterine and vaginal bleeding, unspecified (principal) ==

== ENCOUNTER → 2022-03-09 | Outpatient (REF) | payer BC, MEDICAID | LOC: M SFHCADAM 11:02 | PROVIDERS: ATTEND Physician Assistant | DX: K52.9 Noninfective gastroenteritis and colitis, unspecified (principal) ==

== ENCOUNTER → 2022-07-02 | Outpatient (CLI) | payer BC, MEDICAID | LOC: M RAD 13:04 | PROVIDERS: ATTEND Physician Assistant | DX: S06.0X0A Concussion without loss of consciousness, initial encounter (principal); W18.30XA Fall on same level, unspecified, initial encounter; Y92.009 Unspecified place in unspecified non-institutional (private) residence as the place of occurrence of the external cause ==

== ENCOUNTER → 2022-08-05 | Outpatient (REF) | payer BC, MEDICAID ==
[2022-08-05 16:54] LABS: BASO % 0.5 % (0.0-1.0); EOS # 0.5 10^3/uL (0.0-0.5); EOS % 6.6 % (0.0-3.0); HEMATOCRIT 38.6 % (36.0-47.0); HEMOGLOBIN 12.3 g/dl (12.0-15.5); LYMPH % 23.8 % (24.0-44.0); MEAN CORPUSCULAR HEMOGLOBIN 28.3 pg (27.0-33.0); MEAN CORPUSCULAR HGB CONC 31.9 g/dl (32.0-36.5); MEAN CORPUSCULAR VOLUME 88.7 fl (80.0-96.0); MONO # 0.5 10^3/uL (0.0-0.8); MONO % 5.6 % (2.0-8.0); NEUTROPHILS # 5.2 10^3/uL (1.5-8.5); NEUTROPHILS % 63.3 % (36.0-66.0); PLATELET COUNT, AUTOMATED 232 10^3/uL (150-450); RED BLOOD COUNT 4.35 10^6/uL (4.00-5.40); WHITE BLOOD COUNT 8.2 10^3/uL (4.0-10.0)
[2022-08-05 17:16] LABS: ALBUMIN 3.1 G/DL (3.2-5.2); CARBON DIOXIDE LEVEL 26 MMOL/L (20-31); CHLORIDE LEVEL 106 MMOL/L (98-107); POTASSIUM SERUM 4.2 MMOL/L (3.5-5.1); SODIUM LEVEL 138 MMOL/L (136-145)
[2022-08-05 17:19] LABS: IRON (FE) 84 UG/DL (50-170); PERCENT SATURATION 28.5 % (13.2-45.0); TOTAL IRON BINDING CAPACITY 295 UG/DL (250-425)
[2022-08-05 18:14] LABS: ALKALINE PHOSPHATASE 66 U/L (46-116); ALT/SGPT 17 U/L (7.0-40); AST/SGOT 19 U/L (<34); BILIRUBIN,TOTAL 0.5 MG/DL (0.3-1.2); BLOOD UREA NITROGEN 10 MG/DL (9-23); CREATININE FOR GFR 0.76 MG/DL (0.55-1.30); FERRITIN 41.7 NG/ML (7.3-270.7); GLOMERULAR FILTRATION RATE > 60.0 (>60); GLUCOSE, FASTING 74 MG/DL (60-100); TOTAL 25(OH) VITAMIN D 35.2 NG/ML (20.0-100.0); TOTAL PROTEIN 6.4 G/DL (5.7-8.2)
== END ==
LOC: M SFHCADAM 15:31
PROVIDERS: ATTEND Physician Assistant
DX: J45.21 Mild intermittent asthma with (acute) exacerbation (principal); N93.9 Abnormal uterine and vaginal bleeding, unspecified; E55.9 Vitamin D deficiency, unspecified

== ENCOUNTER → 2022-12-29 | Outpatient (REF) | payer BC, MEDICAID ==
[2022-12-29 17:05] LABS: FOLATE 16.3 NG/ML (>5.4)
== END ==
LOC: M SFHCADAM 13:50
PROVIDERS: ATTEND Physician Assistant
DX: R53.83 Other fatigue (principal)

== ENCOUNTER → 2023-01-08 | Outpatient (CLI) | payer MEDICAID, OTHER | LOC: M RAD 11:41 | PROVIDERS: ATTEND Physician Assistant | DX: R22.32 Localized swelling, mass and lump, left upper limb (principal) ==

== ENCOUNTER → 2023-04-07 | Outpatient (CLI) | payer MEDICAID, OTHER | LOC: M ADAMS 11:41 | PROVIDERS: ATTEND Physician Assistant | DX: S50.02XA Contusion of left elbow, initial encounter (principal); W18.30XA Fall on same level, unspecified, initial encounter; Y92.009 Unspecified place in unspecified non-institutional (private) residence as the place of occurrence of the external cause ==

== ENCOUNTER → 2023-06-04 | Outpatient (REF) | payer OTHER, MEDICAID | LOC: M SFHCADAM 17:20 | PROVIDERS: ATTEND Physician Assistant | DX: N30.01 Acute cystitis with hematuria (principal) ==

== ENCOUNTER → 2023-06-21 | Outpatient (REF) | payer OTHER | LOC: M SFHCADAM 12:54 | PROVIDERS: ATTEND Physician Assistant | DX: E30.0 Delayed puberty (principal); N30.10 Interstitial cystitis (chronic) without hematuria ==

== ENCOUNTER → 2023-06-22 | Outpatient (CLI) | payer OTHER | LOC: M RAD 10:31 | PROVIDERS: ATTEND Physician Assistant | DX: R10.9 Unspecified abdominal pain (principal) ==

== ENCOUNTER → 2023-07-05 | Outpatient (CLI) | payer OTHER ==
[~2023-07-05] MED LIST changes: +ISOVUE-370 76% 100ML VIAL As Ordered ONE
== END ==
LOC: M RAD 14:51
PROVIDERS: ATTEND Physician Assistant
DX: R10.9 Unspecified abdominal pain (principal)
CPT/HCPCS: 74177; Q9967

== ENCOUNTER → 2023-08-12 | Outpatient (CLI) | payer OTHER ==
[~2023-08-12] MED LIST changes: -ISOVUE-370 76% 100ML VIAL As Ordered ONE
== END ==
LOC: M RAD 16:19
PROVIDERS: ATTEND Physician Assistant
DX: R10.32 Left lower quadrant pain (principal); Z87.42 Personal history of other diseases of the female genital tract

== ENCOUNTER → 2023-08-27 | Outpatient (REF) | payer OTHER, MEDICAID | LOC: M SFHCADAM 11:41 | PROVIDERS: ATTEND Physician Assistant | DX: N64.3 Galactorrhea not associated with childbirth (principal) ==

== ENCOUNTER → 2023-08-27 | Outpatient (CLI) | payer OTHER, MEDICAID ==
[2023-08-27 13:28] LABS: BASO # 0.1 10^3/uL (0.0-0.2); BASO % 0.7 % (0.0-1.0); EOS # 0.5 10^3/uL (0.0-0.5); EOS % 6.8 % (0.0-3.0); HEMATOCRIT 40.6 % (36.0-47.0); HEMOGLOBIN 13.3 g/dl (12.0-15.5); LYMPH # 2.4 10^3/uL (1.5-5.0); LYMPH % 34.8 % (24.0-44.0); MEAN CORPUSCULAR HEMOGLOBIN 28.6 pg (27.0-33.0); MEAN CORPUSCULAR HGB CONC 32.8 g/dl (32.0-36.5); MEAN CORPUSCULAR VOLUME 87.3 fl (80.0-96.0); MONO # 0.4 10^3/uL (0.0-0.8); MONO % 5.3 % (2.0-8.0); NEUTROPHILS # 3.5 10^3/uL (1.5-8.5); NEUTROPHILS % 52.1 % (36.0-66.0); PLATELET COUNT, AUTOMATED 290 10^3/uL (150-450); RED BLOOD COUNT 4.65 10^6/uL (4.00-5.40); WHITE BLOOD COUNT 6.8 10^3/uL (4.0-10.0)
[2023-08-27 13:50] LABS: ERYTHROCYTE SEDIMENTATION RATE 21 mm/hr (0-20)
[2023-08-27 13:58] LABS: RHEUMATOID FACTOR QUANT 10.3 IU/ML (<14)
[2023-08-27 13:59] LABS: ALKALINE PHOSPHATASE 66 U/L (46-116); ALT/SGPT 17 U/L (7.0-40); AST/SGOT 13 U/L (<34); BILIRUBIN,TOTAL 0.6 MG/DL (0.3-1.2); BLOOD UREA NITROGEN 8 MG/DL (9-23); CALCIUM LEVEL 8.4 MG/DL (8.5-10.1); CARBON DIOXIDE LEVEL 26 MMOL/L (20-31); CHLORIDE LEVEL 107 MMOL/L (98-107); CREATININE FOR GFR 0.84 MG/DL (0.55-1.30); GLOMERULAR FILTRATION RATE > 60.0 (>60); GLUCOSE, FASTING 78 MG/DL (60-100); POTASSIUM SERUM 3.7 MMOL/L (3.5-5.1); SODIUM LEVEL 137 MMOL/L (136-145); TOTAL PROTEIN 6.1 G/DL (5.7-8.2)
[2023-08-27 14:00] LABS: THYROID STIMULATING HORMONE 3.359 uIU/ML (0.55-4.78); TOTAL 25(OH) VITAMIN D 29.1 NG/ML (20.0-100.0)
[2023-08-27 14:02] LABS: HEMOGLOBIN A1c 4.9 % (4.0-6.0)
[2023-08-28 15:09] LABS: ANTINUCLEAR ANTIBODIES DIRECT Negative (Negative)
== END ==
LOC: M LABDRWAD 11:44
PROVIDERS: ATTEND Psychiatry & Neurology Neurology
DX: R51.9 Headache, unspecified (principal)

== ENCOUNTER → 2023-09-02 | Outpatient (CLI) | payer OTHER ==
[~2023-09-02] MED LIST changes: +E-Z-GAS II EFFERVESCENT PACKET (SODIUM BICARB./CITRIC ACID/SIMETHICONE) As Ordered ONE; +E-Z-HD 98% w/w 340GM SUSP BTL As Ordered ONE; +E-Z-PAQUE 96% w/w SUSP 176GM BTL As Ordered ONE; +HYDR-643 PO; +OMEP40CA4 PO
== END ==
LOC: M RAD 10:12
PROVIDERS: ATTEND Physician Assistant Medical
DX: R13.10 Dysphagia, unspecified (principal)

== ENCOUNTER → 2023-09-10 | Outpatient (REF) | payer OTHER, MEDICAID ==
[~2023-09-10] MED LIST changes: -E-Z-GAS II EFFERVESCENT PACKET (SODIUM BICARB./CITRIC ACID/SIMETHICONE) As Ordered ONE; -E-Z-HD 98% w/w 340GM SUSP BTL As Ordered ONE; -E-Z-PAQUE 96% w/w SUSP 176GM BTL As Ordered ONE
[2023-09-10 17:48] LABS: EOS % 8.8 % (0.0-3.0); HEMATOCRIT 39.5 % (36.0-47.0); LYMPH % 28.7 % (24.0-44.0); MEAN CORPUSCULAR HGB CONC 32.9 g/dl (32.0-36.5); MONO % 6.3 % (2.0-8.0); NEUTROPHILS % 55.3 % (36.0-66.0); PLATELET COUNT, AUTOMATED 278 10^3/uL (150-450); RED BLOOD COUNT 4.49 10^6/uL (4.00-5.40); WHITE BLOOD COUNT 5.4 10^3/uL (4.0-10.0)
[2023-09-10 17:49] LABS: BASO % 0.7 % (0.0-1.0); EOS # 0.5 10^3/uL (0.0-0.5); LYMPH # 1.5 10^3/uL (1.5-5.0); MONO # 0.3 10^3/uL (0.0-0.8)
[2023-09-10 17:52] LABS: ALBUMIN 3.1 G/DL (3.2-5.2); ALKALINE PHOSPHATASE 67 U/L (46-116); ALT/SGPT 18 U/L (7.0-40); AST/SGOT 11 U/L (<34); BILIRUBIN,TOTAL 0.3 MG/DL (0.3-1.2); BLOOD UREA NITROGEN 8 MG/DL (9-23); CARBON DIOXIDE LEVEL 28 MMOL/L (20-31); CHLORIDE LEVEL 107 MMOL/L (98-107); CREATININE FOR GFR 0.71 MG/DL (0.55-1.30); GLOMERULAR FILTRATION RATE > 60.0 (>60); GLUCOSE, FASTING 92 MG/DL (60-100); MAGNESIUM LEVEL 1.9 MG/DL (1.8-2.4); POTASSIUM SERUM 3.8 MMOL/L (3.5-5.1); SODIUM LEVEL 139 MMOL/L (136-145); TOTAL PROTEIN 6.3 G/DL (5.7-8.2)
[2023-09-10 17:53] LABS: FREE T4 1.11 NG/DL (0.89-1.76); THYROID STIMULATING HORMONE 1.334 uIU/ML (0.55-4.78)
== END ==
LOC: M SFHCADAM 14:11
PROVIDERS: ATTEND Physician Assistant
DX: R00.2 Palpitations (principal); R00.0 Tachycardia, unspecified; R07.89 Other chest pain

== ENCOUNTER → 2023-09-22 | Outpatient (CLI) | payer OTHER | LOC: M WHC 08:53 | PROVIDERS: ATTEND Physician Assistant | DX: N64.3 Galactorrhea not associated with childbirth (principal) ==

== ENCOUNTER 2024-01-13 11:33 | Day surgery (SDC) | payer OTHER ==
[~2024-01-13] VITALS: Ht 162.6 cm; Wt 50.7 kg
[~2024-01-13 11:33] MED LIST changes: +AZEL1SPR3; +CLAR10CA3 PO; +ETON1VAG7 VG; +FLUTISP; +LIDOCAINE 2% 100MG/5ML SDV (FOR ANES.) As Ordered ONE; +OMEP-173 PO; +ONDA-282 PO; +ONDA-83 PO; -ONDA4TAB6 PO; +THERTAB52 PO; +VITA100054 PO; +fentaNYL 100 MCG/2 ML INJECTION As Ordered ONE; +propofoL 200 MG/20 ML VIAL As Ordered ONE
[2024-01-13] MEDS: NS 1,000 ML IV ONE (11:51)
[2024-01-13 13:58] VITALS: TEMP 98
[2024-01-13 14:15] VITALS: BP 97/55; O2SAT 99
== END 2024-01-13 14:37 | disposition home or self-care (01) ==
LOC: M OPP 11:33
PROVIDERS: ATTEND Internal Medicine Gastroenterology
DX: K64.8 Other hemorrhoids (principal); Z80.0 Family history of malignant neoplasm of digestive organs; R19.4 Change in bowel habit; K58.1 Irritable bowel syndrome with constipation; K22.89 Other specified disease of esophagus; K20.0 Eosinophilic esophagitis; F17.290 Nicotine dependence, other tobacco product, uncomplicated; Z79.3 Long term (current) use of hormonal contraceptives; Z79.51 Long term (current) use of inhaled steroids; Z79.52 Long term (current) use of systemic steroids; Z79.899 Other long term (current) drug therapy; Z88.1 Allergy status to other antibiotic agents; Z88.6 Allergy status to analgesic agent; Z91.010 Allergy to peanuts; Z91.012 Allergy to eggs; Z91.013 Allergy to seafood; Z91.018 Allergy to other foods
CPT/HCPCS: 43239; 45378; 88305; J3010

== ENCOUNTER → 2024-05-18 | Outpatient (REF) | payer BC, MEDICAID ==
[~2024-05-18] MED LIST changes: -LIDOCAINE 2% 100MG/5ML SDV (FOR ANES.) As Ordered ONE; -fentaNYL 100 MCG/2 ML INJECTION As Ordered ONE; -propofoL 200 MG/20 ML VIAL As Ordered ONE
== END ==
LOC: M SFHCADAM 12:44
PROVIDERS: ATTEND Physician Assistant
DX: J02.9 Acute pharyngitis, unspecified (principal)

== ENCOUNTER 2024-06-10 11:55 | Emergency (ER) | payer BC, MEDICAID, OTHER ==
[~2024-06-10] VITALS: Ht 162.6 cm; Wt 53.0 kg
[2024-06-10 12:12] LABS: BASO % 0.4 % (0.0-1.0); EOS # 0.4 10^3/uL (0.0-0.5); EOS % 4.7 % (0.0-3.0); HEMATOCRIT 39.1 % (36.0-47.0); HEMOGLOBIN 12.7 g/dl (12.0-15.5); LYMPH # 1.9 10^3/uL (1.5-5.0); LYMPH % 24.4 % (24.0-44.0); MEAN CORPUSCULAR HEMOGLOBIN 28.2 pg (27.0-33.0); MEAN CORPUSCULAR HGB CONC 32.5 g/dl (32.0-36.5); MEAN CORPUSCULAR VOLUME 86.7 fl (80.0-96.0); MONO # 0.4 10^3/uL (0.0-0.8); MONO % 4.8 % (2.0-8.0); NEUTROPHILS # 5.2 10^3/uL (1.5-8.5); NEUTROPHILS % 65.6 % (36.0-66.0); PLATELET COUNT, AUTOMATED 278 10^3/uL (150-450); RED BLOOD COUNT 4.51 10^6/uL (4.00-5.40); WHITE BLOOD COUNT 7.9 10^3/uL (4.0-10.0)
[2024-06-10 12:40] LABS: D-DIMER QUANT 0.31 ug/mL (<0.5); INR 0.98; PARTIAL THROMBOPLASTIN TIME 28.7 SECONDS (24.8-34.2); PROTHROMBIN TIME 13.2 SECONDS (12.5-14.5)
[2024-06-10 12:46] LABS: CK-MB VALUE MASS < 1.0 NG/ML (<3.6)
[2024-06-10 12:48] LABS: ALBUMIN 3.3 G/DL (3.2-5.2); ALKALINE PHOSPHATASE 91 U/L (35-104); ALT/SGPT 26 U/L (7.0-40); AST/SGOT 26 U/L (<34); BILIRUBIN,DIRECT < 0.1 MG/DL (<0.4); BILIRUBIN,TOTAL 0.4 MG/DL (0.3-1.2); BLOOD UREA NITROGEN 9 MG/DL (9-23); CALCIUM LEVEL 8.6 MG/DL (8.5-10.1); CARBON DIOXIDE LEVEL 20 MMOL/L (20-31); CHLORIDE LEVEL 109 MMOL/L (98-107); CREATININE FOR GFR 0.73 MG/DL (0.55-1.30); GLOMERULAR FILTRATION RATE > 60.0 (>60); GLUCOSE, FASTING 115 MG/DL (60-100); POTASSIUM SERUM 4.4 MMOL/L (3.5-5.1); SODIUM LEVEL 141 MMOL/L (136-145); TOTAL PROTEIN 6.8 G/DL (5.7-8.2)
[2024-06-10 12:50] LABS: FREE T4 1.09 NG/DL (0.89-1.76); THYROID STIMULATING HORMONE 1.729 uIU/ML (0.55-4.78)
[2024-06-10 12:51] LABS: CPK CREATINE PHOSPHOKINASE 65 U/L (34-145); MB/CK RELATIVE INDEX 1.53 (< OR =4)
[2024-06-10 12:54] LABS: HCG, SERUM QUALITATIVE NEGATIVE (NEGATIVE)
[2024-06-10 13:35] LABS: CK-MB VALUE MASS < 1.0 NG/ML (<3.6); CPK CREATINE PHOSPHOKINASE 51 U/L (34-145); MB/CK RELATIVE INDEX 1.96 (< OR =4)
[2024-06-10] MEDS: diphenhydrAMINE 50MG/ML VIAL IV STA (13:37)
[2024-06-10] MEDS: METOPROLOL 5 MG/5 ML VIAL IV STA (13:37)
[2024-06-10 13:38] VITALS: BP 128/75
[2024-06-10] MEDS: METOPROLOL SUCC *XL* 25MG TAB (TopROL *XL*) PO ONE (13:38)
[2024-06-10] MEDS ORDERED: METO1TAB87 PO (14:03)
[2024-06-10] MEDS ORDERED: BLOOKIT XX (14:03)
[2024-06-10 14:15] VITALS: BP 111/66; TEMP 99; O2SAT 98
== END 2024-06-10 14:20 | disposition home or self-care (01) ==
LOC: M ED 11:55 → EDBD 11:55 → M ED 14:20
DX: I47.19 Other supraventricular tachycardia (principal); T78.40XA Allergy, unspecified, initial encounter; K21.9 Gastro-esophageal reflux disease without esophagitis; K58.9 Irritable bowel syndrome, unspecified; Z88.1 Allergy status to other antibiotic agents; Z91.010 Allergy to peanuts; Z91.012 Allergy to eggs; Z91.013 Allergy to seafood; Z91.014 Allergy to mammalian meats; Z91.018 Allergy to other foods; Z79.810 Long term (current) use of selective estrogen receptor modulators (SERMs); Z79.899 Other long term (current) drug therapy
CPT/HCPCS: 71045; 80048; 80076; 82550; 82553; 83880; 84439; 84443; 84484; 84703; 85025; 85379; 85610; 85730; 93005; 93041; 94760; 96374; 99285; J1200

== ENCOUNTER 2024-09-06 14:37 | Emergency (ER) | payer BC, MEDICAID ==
[~2024-09-06] VITALS: Ht 160 cm; Wt 53.1 kg
[~2024-09-06 14:37] MED LIST changes: +BLOOKIT XX; +METO1TAB87 PO
[2024-09-06 14:45] VITALS: TEMP 96.7
[2024-09-06 15:39] LABS: BASO % 0.6 % (0.0-1.0); EOS # 0.4 10^3/uL (0.0-0.5); EOS % 5.9 % (0.0-3.0); HEMOGLOBIN 12.8 g/dl (12.0-15.5); LYMPH # 1.7 10^3/uL (1.5-5.0); LYMPH % 24.9 % (24.0-44.0); MEAN CORPUSCULAR HEMOGLOBIN 28.5 pg (27.0-33.0); MEAN CORPUSCULAR HGB CONC 33.7 g/dl (32.0-36.5); MEAN CORPUSCULAR VOLUME 84.6 fl (80.0-96.0); MONO # 0.4 10^3/uL (0.0-0.8); MONO % 5.1 % (2.0-8.0); NEUTROPHILS # 4.3 10^3/uL (1.5-8.5); NEUTROPHILS % 63.4 % (36.0-66.0); PLATELET COUNT, AUTOMATED 184 10^3/uL (150-450); RED BLOOD COUNT 4.49 10^6/uL (4.00-5.40); WHITE BLOOD COUNT 6.8 10^3/uL (4.0-10.0)
[2024-09-06 15:52] LABS: INR 0.96; PARTIAL THROMBOPLASTIN TIME 26.5 SECONDS (24.8-34.2); PROTHROMBIN TIME 13.1 SECONDS (12.5-14.5)
[2024-09-06 16:02] LABS: BLOOD UREA NITROGEN 9 MG/DL (9-23); CALCIUM LEVEL 8.3 MG/DL (8.5-10.1); CARBON DIOXIDE LEVEL 22 MMOL/L (20-31); CHLORIDE LEVEL 107 MMOL/L (98-107); GLOMERULAR FILTRATION RATE > 60.0 (>60); GLUCOSE, FASTING 91 MG/DL (60-100); SODIUM LEVEL 139 MMOL/L (136-145)
[2024-09-06] MEDS ORDERED: ISOVUE-370 76% 100ML VIAL As Ordered ONE (16:15)
[2024-09-06 20:30] VITALS: BP 116/55; O2SAT 98
== END 2024-09-06 22:48 | disposition home or self-care (01) ==
LOC: M ED 14:37
DX: R20.2 Paresthesia of skin (principal); F41.9 Anxiety disorder, unspecified; J45.909 Unspecified asthma, uncomplicated; F32.A Depression, unspecified; K58.9 Irritable bowel syndrome, unspecified; Z88.1 Allergy status to other antibiotic agents; Z88.6 Allergy status to analgesic agent; Z91.018 Allergy to other foods; Z91.013 Allergy to seafood; Z91.014 Allergy to mammalian meats; Z79.899 Other long term (current) drug therapy; Z79.810 Long term (current) use of selective estrogen receptor modulators (SERMs)
CPT/HCPCS: 36415; 70450; 70496; 70498; 70551; 71045; 72141; 73206; 80048; 85025; 85610; 85730; 86850; 86900; 86901; 93005; 93041; 94760; 99285; Q9967

== ENCOUNTER 2024-09-11 14:21 | Inpatient (IN) | payer BC, MEDICAID ==
[~2024-09-11] VITALS: Ht 162.6 cm; Wt 51.6 kg
[~2024-09-11 14:21] MED LIST changes: -ELIQ5TAB PO; -ISOVUE-370 76% 100ML VIAL As Ordered ONE; -MULTTAB20 PO; -PERI12LIQ PO; -TRAM50TA2 PO; -XARE15TA PO
[2024-09-11 15:20] LABS: BASO # 0.1 10^3/uL (0.0-0.2); BASO % 0.6 % (0.0-1.0); EOS # 0.1 10^3/uL (0.0-0.5); EOS % 1.5 % (0.0-3.0); HEMATOCRIT 37.1 % (36.0-47.0); HEMOGLOBIN 12.5 g/dl (12.0-15.5); LYMPH # 1.5 10^3/uL (1.5-5.0); MEAN CORPUSCULAR HEMOGLOBIN 28.4 pg (27.0-33.0); MEAN CORPUSCULAR HGB CONC 33.7 g/dl (32.0-36.5); MEAN CORPUSCULAR VOLUME 84.3 fl (80.0-96.0); MONO # 0.5 10^3/uL (0.0-0.8); MONO % 5.3 % (2.0-8.0); NEUTROPHILS # 6.4 10^3/uL (1.5-8.5); NEUTROPHILS % 74.4 % (36.0-66.0); PLATELET COUNT, AUTOMATED 228 10^3/uL (150-450); WHITE BLOOD COUNT 8.6 10^3/uL (4.0-10.0)
[2024-09-11 15:36] LABS: PARTIAL THROMBOPLASTIN TIME 28.4 SECONDS (24.8-34.2); PROTHROMBIN TIME 13.5 SECONDS (12.5-14.5)
[2024-09-11 15:42] LABS: ALKALINE PHOSPHATASE 109 U/L (35-104); ALT/SGPT 42 U/L (7.0-40); AST/SGOT 22 U/L (<34); BILIRUBIN,DIRECT 0.1 MG/DL (<0.4); BILIRUBIN,TOTAL 0.4 MG/DL (0.3-1.2); BLOOD UREA NITROGEN 7 MG/DL (9-23); C REACTIVE PROTEIN QUANTITATIV 5.58 MG/DL (<1.0); CALCIUM LEVEL 8.5 MG/DL (8.5-10.1); CARBON DIOXIDE LEVEL 22 MMOL/L (20-31); CHLORIDE LEVEL 104 MMOL/L (98-107); CREATININE FOR GFR 0.62 MG/DL (0.55-1.30); GLOMERULAR FILTRATION RATE > 60.0 (>60); GLUCOSE, FASTING 112 MG/DL (60-100); HCG, SERUM QUALITATIVE NEGATIVE (NEGATIVE); POTASSIUM SERUM 3.8 MMOL/L (3.5-5.1); SODIUM LEVEL 137 MMOL/L (136-145); TOTAL PROTEIN 6.8 G/DL (5.7-8.2)
[2024-09-11 15:43] LABS: ERYTHROCYTE SEDIMENTATION RATE 53 mm/hr (0-20)
[2024-09-11] MEDS: RIVAROXABAN 15MG TAB (XARELTO) PO ONE (18:49)
[2024-09-11] MEDS: traMADol 50 MG TAB PO ONE (18:50)
[2024-09-11 19:15] LABS: INR 1.04; PARTIAL THROMBOPLASTIN TIME 29.7 SECONDS (24.8-34.2); PROTHROMBIN TIME 13.9 SECONDS (12.5-14.5)
[2024-09-11] MEDS ORDERED: ISOVUE-370 76% 100ML VIAL As Ordered ONE (23:46)
[2024-09-11] MEDS: NS (Normal Saline) 0.9% 1,000 ML IV ONE (23:48)
[2024-09-11] MEDS: MORPHINE 2 MG/ML 1ML VIAL IV ONE (23:48)
[2024-09-12] MEDS: ACETAMINOPHEN *IV* 1,000 MG in IV 1 EA IV ONE (02:59)
[2024-09-12] MEDS: HEPARIN DRIP 25,000 UNITS in IV 1 EA IV SCH ×2 (03:24→06:42)
[2024-09-12] MEDS ORDERED: HEPARIN SOD (PORCINE) 5000UNITS/ML 1ML VIAL/SYRINGE IV PRN (05:05)
[2024-09-12] MEDS ORDERED: MULTTAB20 PO (05:22)
[2024-09-12] MEDS ORDERED: ONDA-282 PO (05:22)
[2024-09-12] MEDS ORDERED: PERI12LIQ PO (05:22)
[2024-09-12] MEDS ORDERED: TRAM50TA2 PO (05:22)
[2024-09-12] MEDS ORDERED: HOME MED LIST COMPLETE! XX SCH (05:25)
[2024-09-12] MEDS ORDERED: ELIQ5TAB PO (07:50)
[2024-09-12 07:58] LABS: HEMATOCRIT 34.6 % (36.0-47.0); HEMOGLOBIN 11.3 g/dl (12.0-15.5); MEAN CORPUSCULAR HGB CONC 32.7 g/dl (32.0-36.5); MEAN CORPUSCULAR VOLUME 85.9 fl (80.0-96.0); PLATELET COUNT, AUTOMATED 211 10^3/uL (150-450); RED BLOOD COUNT 4.03 10^6/uL (4.00-5.40); WHITE BLOOD COUNT 7.7 10^3/uL (4.0-10.0)
[2024-09-12 08:19] LABS: ALBUMIN 2.5 G/DL (3.2-5.2); ALKALINE PHOSPHATASE 93 U/L (35-104); ALT/SGPT 47 U/L (7.0-40); AST/SGOT 23 U/L (<34); BILIRUBIN,TOTAL 0.4 MG/DL (0.3-1.2); BLOOD UREA NITROGEN 5 MG/DL (9-23); CALCIUM LEVEL 7.8 MG/DL (8.5-10.1); CARBON DIOXIDE LEVEL 24 MMOL/L (20-31); CHLORIDE LEVEL 108 MMOL/L (98-107); CREATININE FOR GFR 0.64 MG/DL (0.55-1.30); GLOMERULAR FILTRATION RATE > 60.0 (>60); GLUCOSE, FASTING 97 MG/DL (60-100); POTASSIUM SERUM 3.7 MMOL/L (3.5-5.1); SODIUM LEVEL 140 MMOL/L (136-145); TOTAL PROTEIN 5.8 G/DL (5.7-8.2)
[2024-09-12] MEDS ORDERED: XARE15TA PO (09:08)
[2024-09-12] MEDS: KETOROLAC 30 MG/ML 1ML VIAL IV ONE (09:15)
[2024-09-12] MEDS: ENOXAPARIN 60MG/0.6ML SYRINGE (J1650 PER 10MG) SC SCH (09:22)
[2024-09-12] MEDS: MORPHINE 2 MG/ML 1ML VIAL IV PRN (09:44)
[2024-09-12 13:26] LABS: MAGNESIUM LEVEL 1.9 MG/DL (1.8-2.4); PHOSPHORUS LEVEL 2.6 MG/DL (2.5-4.9)
[2024-09-12 16:00] VITALS: BP 112/70; TEMP 98.2; O2SAT 99
[2024-09-12] MEDS: MORPHINE 4 MG/ML 1ML VIAL IV PRN (16:13)
[2024-09-12 19:27] VITALS: BP 105/52; TEMP 98.1; O2SAT 99
[2024-09-12] MEDS: OMEPRAZOLE 20MG CAP PO SCH (20:16)
[2024-09-12 23:09] VITALS: BP 116/56; TEMP 97.9; O2SAT 99
[2024-09-13] VITALS (10 sets, daily range): BP systolic 98–119; BP diastolic 54–67; TEMP 97.5–98.2; O2SAT 97–100
[2024-09-13] MEDS: ACETAMINOPHEN 325MG/10.15ML UDC PO ONE (03:08)
[2024-09-13 08:14] LABS: HEMATOCRIT 35.2 % (36.0-47.0); HEMOGLOBIN 11.8 g/dl (12.0-15.5); MEAN CORPUSCULAR HEMOGLOBIN 28.6 pg (27.0-33.0); MEAN CORPUSCULAR HGB CONC 33.5 g/dl (32.0-36.5); MEAN CORPUSCULAR VOLUME 85.4 fl (80.0-96.0); PLATELET COUNT, AUTOMATED 236 10^3/uL (150-450); RED BLOOD COUNT 4.12 10^6/uL (4.00-5.40); WHITE BLOOD COUNT 7.5 10^3/uL (4.0-10.0)
[2024-09-13 08:36] LABS: ALBUMIN 2.5 G/DL (3.2-5.2); ALKALINE PHOSPHATASE 97 U/L (35-104); ALT/SGPT 50 U/L (7.0-40); AST/SGOT 21 U/L (<34); BILIRUBIN,TOTAL 0.4 MG/DL (0.3-1.2); BLOOD UREA NITROGEN 6 MG/DL (9-23); CALCIUM LEVEL 8.4 MG/DL (8.5-10.1); CARBON DIOXIDE LEVEL 23 MMOL/L (20-31); CHLORIDE LEVEL 109 MMOL/L (98-107); CREATININE FOR GFR 0.68 MG/DL (0.55-1.30); GLOMERULAR FILTRATION RATE > 60.0 (>60); GLUCOSE, FASTING 78 MG/DL (60-100); POTASSIUM SERUM 4.4 MMOL/L (3.5-5.1); SODIUM LEVEL 139 MMOL/L (136-145)
[2024-09-13] MEDS: HEPARIN DRIP 25,000 UNITS in IV 1 EA IV SCH (10:52)
[2024-09-13] MEDS ORDERED: LIDOCAINE 1% MDV 20ML VIAL As Ordered ONE (13:43)
[2024-09-13] MEDS ORDERED: ISOVUE-300 61% 100ML VIAL As Ordered ONE (13:43)
[2024-09-13] MEDS ORDERED: NS (Normal Saline) 0.9% 1,000 ML IV SCH (14:15)
[2024-09-13] MEDS: MIDAZOLAM INJ 2MG/2ML VIAL IV PRN (15:01)
[2024-09-13] MEDS: fentaNYL 100 MCG/2 ML INJECTION IV PRN (15:01)
[2024-09-13] MEDS: HEPARIN 1,000UNITS/ML 10ML VIAL (FOR RADIOLOGY & DIALYSIS ONLY) IV ONE ×2 (15:11→16:10)
[2024-09-13] MEDS ORDERED: ONDANSETRON 4MG 2ML VIAL As Ordered ONE (15:52)
[2024-09-13] MEDS: ONDANSETRON 4MG 2ML VIAL IV STA (16:06)
[2024-09-13] MEDS: LIDOCAINE 1% MDV 20ML VIAL SC STA (16:17)
[2024-09-13] MEDS: ISOVUE-300 61% 100ML VIAL IV STA (16:18)
[2024-09-13] MEDS: NS (Normal Saline) 0.9% 1,000 ML IV SCH (17:31)
[2024-09-14 00:02] VITALS: BP 99/55; TEMP 97.8; O2SAT 98
[2024-09-14 01:03] LABS: CARDIOLIPIN IGA ANTIBODY < 2.0 APL-U/mL (<20.0); CARDIOLIPIN IGG ANTIBODY < 2.0 GPL-U/mL (<20.0); CARDIOLIPIN IGM ANTIBODY < 2.0 MPL-U/mL (<20.0)
[2024-09-14 03:55] LABS: HEMATOCRIT 28.6 % (36.0-47.0); MEAN CORPUSCULAR HEMOGLOBIN 28.8 pg (27.0-33.0); MEAN CORPUSCULAR HGB CONC 33.6 g/dl (32.0-36.5); MEAN CORPUSCULAR VOLUME 85.9 fl (80.0-96.0); PLATELET COUNT, AUTOMATED 222 10^3/uL (150-450); RED BLOOD COUNT 3.33 10^6/uL (4.00-5.40); WHITE BLOOD COUNT 5.4 10^3/uL (4.0-10.0)
[2024-09-14 03:57] VITALS: BP 102/54; TEMP 98.3; O2SAT 97
[2024-09-14 04:00] VITALS: BP 102/54; TEMP 98.3; O2SAT 97
[2024-09-14 04:20] LABS: HEMOGLOBIN 9.6 g/dl (12.0-15.5)
[2024-09-14 04:25] LABS: ALBUMIN 2.2 G/DL (3.2-5.2); ALKALINE PHOSPHATASE 89 U/L (35-104); ALT/SGPT 51 U/L (7.0-40); AST/SGOT 23 U/L (<34); BILIRUBIN,TOTAL 0.3 MG/DL (0.3-1.2); BLOOD UREA NITROGEN 6 MG/DL (9-23); CALCIUM LEVEL 7.2 MG/DL (8.5-10.1); CARBON DIOXIDE LEVEL 23 MMOL/L (20-31); CHLORIDE LEVEL 107 MMOL/L (98-107); CREATININE FOR GFR 0.64 MG/DL (0.55-1.30); GLOMERULAR FILTRATION RATE > 60.0 (>60); GLUCOSE, FASTING 130 MG/DL (60-100); POTASSIUM SERUM 4.2 MMOL/L (3.5-5.1); SODIUM LEVEL 137 MMOL/L (136-145); TOTAL PROTEIN 5.4 G/DL (5.7-8.2)
[2024-09-14 07:47] VITALS: BP 114/64; TEMP 98.3; O2SAT 98
[2024-09-14] MEDS: traMADol 50 MG TAB PO PRN (08:14)
[2024-09-14] MEDS: RIVAROXABAN 15MG TAB (XARELTO) PO ONE (11:00)
[2024-09-14 11:21] LABS: DRVV SCREEN 43.5 SECONDS
[2024-09-14 11:27] LABS: PTT LUPUS TYPE ANTICOAG SCREEN 1.12 (0-1.20)
[2024-09-15 03:32] LABS: ANTI THROMBIN 3 ANTIGEN IMMUNO 107 % normal (80-120); ANTI THROMBIN 3 FUNCT ACTIVITY 111 % normal (80-135)
[2024-09-15 16:02] LABS: PHOSPHOLIPIDS LEVEL 216 mg/dL (151-264)
[2024-09-19 01:08] LABS: PROTEIN C FUNCTIONAL ACTIVITY 119 % normal (70-180); PROTEIN S FUNCTIONAL ACTIVITY 64 % normal (60-140)
== END 2024-09-14 11:14 | disposition home or self-care (01) | DRG 950 ==
LOC: M ED 14:21 → M ED INP 14:22 → OBSVTOIN 09-12 14:49 → M PCU 09-12 15:55
PROVIDERS: ADMIT Family Medicine; ATTEND Internal Medicine
PROC: B246ZZZ Ultrasonography of Right and Left Heart (ICD-10-PCS; 2024-09-12)
PROC: 06CG3ZZ Extirpation of Matter from Left External Iliac Vein, Percutaneous Approach (ICD-10-PCS; 2024-09-13)
PROC: 067D3ZZ Dilation of Left Common Iliac Vein, Percutaneous Approach (ICD-10-PCS; 2024-09-13)
PROC: 06CD3ZZ Extirpation of Matter from Left Common Iliac Vein, Percutaneous Approach (ICD-10-PCS; principal; 2024-09-13 14:00)
DX: I26.99 Other pulmonary embolism without acute cor pulmonale (principal); I82.411 Acute embolism and thrombosis of right femoral vein; I87.1 Compression of vein; J45.909 Unspecified asthma, uncomplicated; K21.9 Gastro-esophageal reflux disease without esophagitis; F32.A Depression, unspecified; N93.8 Other specified abnormal uterine and vaginal bleeding; F41.9 Anxiety disorder, unspecified; D64.9 Anemia, unspecified; Z79.899 Other long term (current) drug therapy; Z88.0 Allergy status to penicillin; Z88.6 Allergy status to analgesic agent; Z88.8 Allergy status to other drugs, medicaments and biological substances; Z91.012 Allergy to eggs; Z91.010 Allergy to peanuts; Z91.013 Allergy to seafood; Z91.018 Allergy to other foods

== ENCOUNTER → 2024-09-11 | Outpatient (CLI) | payer BC, MEDICAID ==
[~2024-09-11] MED LIST changes: -AZEL1SPR3; +AZEL1SPR3 NARES; +ELIQ5TAB PO; -FLUTISP; +FLUTISP NARES; +ISOVUE-370 76% 100ML VIAL As Ordered ONE; +MULTTAB20 PO; +PERI12LIQ PO; +TRAM50TA2 PO; +XARE15TA PO
== END ==
LOC: M RAD 11:06
PROVIDERS: ATTEND Physician Assistant
DX: M79.89 Other specified soft tissue disorders (principal); R10.32 Left lower quadrant pain
CPT/HCPCS: 74177; 93971; Q9967

== ENCOUNTER → 2024-09-20 | Outpatient (REF) | payer MEDICAID ==
[~2024-09-20] MED LIST changes: +ELIQ5TAB PO; +MULTTAB20 PO; +PERI12LIQ PO; +TRAM50TA2 PO; +XARE15TA PO
[2024-09-21 13:31] LABS: FERRITIN 111.4 NG/ML (7.3-270.7)
[2024-09-21 13:36] LABS: IRON (FE) 27 UG/DL (50-170); PERCENT SATURATION 10.5 % (13.2-45.0); TOTAL IRON BINDING CAPACITY 257 UG/DL (250-425)
[2024-09-21 13:39] LABS: HEMATOCRIT 39.5 % (36.0-47.0); HEMOGLOBIN 12.3 g/dl (12.0-15.5); MEAN CORPUSCULAR HEMOGLOBIN 27.4 pg (27.0-33.0); MEAN CORPUSCULAR HGB CONC 31.1 g/dl (32.0-36.5); PLATELET COUNT, AUTOMATED 648 10^3/uL (150-450); RED BLOOD COUNT 4.49 10^6/uL (4.00-5.40); WHITE BLOOD COUNT 8.5 10^3/uL (4.0-10.0)
[2024-09-21 13:40] LABS: BLOOD UREA NITROGEN 9 MG/DL (9-23); CALCIUM LEVEL 9.2 MG/DL (8.5-10.1); CARBON DIOXIDE LEVEL 27 MMOL/L (20-31); CHLORIDE LEVEL 103 MMOL/L (98-107); CREATININE FOR GFR 0.64 MG/DL (0.55-1.30); GLOMERULAR FILTRATION RATE > 90.0 (>60); GLUCOSE, FASTING 76 MG/DL (60-100); POTASSIUM SERUM 4.6 MMOL/L (3.5-5.1); SODIUM LEVEL 142 MMOL/L (136-145)
[2024-09-21 14:10] LABS: ATYPICAL LYMPH 5 % (0-5); EOSINOPHILS 2 % (0-3); LYMPHOCYTES 22 % (16-44); MONOCYTES 3 % (0-5); NEUTROPHILS 67 % (28-66)
[2024-09-21 14:11] LABS: PLATELET ESTIMATE INCREASED (NORMAL)
== END ==
LOC: M SFHCADAM 15:48
PROVIDERS: ATTEND Physician Assistant
DX: N93.8 Other specified abnormal uterine and vaginal bleeding (principal)

== ENCOUNTER → 2024-10-18 | Outpatient (POV) | payer MEDICAID ==
[~2024-10-18] VITALS: Ht 162.6 cm; Wt 75.5 kg
[~2024-10-18] MED LIST changes: +ACET-683 PO; +QC F0.52 PO; +TOPI-256 PO; -TOPI25TA10 PO; +XARE20TA PO
[2024-10-18 14:27] VITALS: BP 106/70; O2SAT 100
== END ==
LOC: M IRPOV 14:22
PROVIDERS: ATTEND Radiology Diagnostic Radiology
DX: Z48.812 Encounter for surgical aftercare following surgery on the circulatory system (principal); I87.1 Compression of vein; Z79.01 Long term (current) use of anticoagulants; Z86.718 Personal history of other venous thrombosis and embolism; Z88.0 Allergy status to penicillin; Z88.6 Allergy status to analgesic agent; Z91.010 Allergy to peanuts; Z91.012 Allergy to eggs; Z91.013 Allergy to seafood; Z91.018 Allergy to other foods; Z92.0 Personal history of contraception

== ENCOUNTER → 2024-10-18 | Outpatient (REF) | payer MEDICAID ==
[2024-10-18 16:55] LABS: Trichomonas vaginalis (AMP) NOT DETECTED (NEGATIVE)
[2024-10-18 17:20] LABS: GC DNA AMPLIFICATION NEGATIVE (NEGATIVE)
== END ==
LOC: M SFHCWAGY 15:12
PROVIDERS: ATTEND Obstetrics & Gynecology
DX: Z11.3 Encounter for screening for infections with a predominantly sexual mode of transmission (principal); Z12.4 Encounter for screening for malignant neoplasm of cervix

== ENCOUNTER → 2024-10-19 | Outpatient (REF) | payer MEDICAID ==
[2024-10-19 17:17] LABS: HEMATOCRIT 38.2 % (36.0-47.0); HEMOGLOBIN 11.7 g/dl (12.0-15.5); MEAN CORPUSCULAR HEMOGLOBIN 27.1 pg (27.0-33.0); MEAN CORPUSCULAR HGB CONC 30.6 g/dl (32.0-36.5); MEAN CORPUSCULAR VOLUME 88.6 fl (80.0-96.0); PLATELET COUNT, AUTOMATED 268 10^3/uL (150-450); RED BLOOD COUNT 4.31 10^6/uL (4.00-5.40); WHITE BLOOD COUNT 4.6 10^3/uL (4.0-10.0)
[2024-10-19 17:48] LABS: ATYPICAL LYMPH 8 % (0-5); BASOPHILS 2 % (0-1); EOSINOPHILS 7 % (0-3); LYMPHOCYTES 38 % (16-44); MONOCYTES 2 % (0-5); NEUTROPHILS 43 % (28-66)
[2024-10-19 17:49] LABS: IRON (FE) 59 UG/DL (50-170); PLATELET ESTIMATE NORMAL (NORMAL); TOTAL IRON BINDING CAPACITY 268 UG/DL (250-425)
[2024-10-19 17:50] LABS: ALBUMIN 3.4 G/DL (3.2-5.2); ALKALINE PHOSPHATASE 112 U/L (35-104); ALT/SGPT 23 U/L (7.0-40); AST/SGOT 13 U/L (<34); BILIRUBIN,TOTAL 0.3 MG/DL (0.3-1.2); BLOOD UREA NITROGEN 8 MG/DL (9-23); CALCIUM LEVEL 8.7 MG/DL (8.5-10.1); CARBON DIOXIDE LEVEL 28 MMOL/L (20-31); CHLORIDE LEVEL 108 MMOL/L (98-107); CREATININE FOR GFR 0.66 MG/DL (0.55-1.30); FERRITIN 20.6 NG/ML (7.3-270.7); GLOMERULAR FILTRATION RATE > 90.0 (>60); GLUCOSE, FASTING 73 MG/DL (60-100); POTASSIUM SERUM 4.3 MMOL/L (3.5-5.1); SODIUM LEVEL 143 MMOL/L (136-145); TOTAL PROTEIN 6.8 G/DL (5.7-8.2)
== END ==
LOC: M SFHCADAM 13:58
PROVIDERS: ATTEND Physician Assistant
DX: N93.8 Other specified abnormal uterine and vaginal bleeding (principal)

== ENCOUNTER → 2024-10-24 | Outpatient (CLI) | payer MEDICAID | LOC: M RAD 10:47 | PROVIDERS: ATTEND Radiology Diagnostic Radiology | DX: I82.412 Acute embolism and thrombosis of left femoral vein (principal) ==

== ENCOUNTER → 2025-01-24 | Outpatient (POV) | payer OTHER ==
[~2025-01-24] VITALS: Ht 162.6 cm; Wt 54.1 kg
[~2025-01-24] MED LIST changes: +CLIN150C17; +D31000CA5 PO; +METO1TAB32; -VITA100054 PO
[2025-01-24 15:30] VITALS: BP 108/84; O2SAT 100
== END ==
LOC: M IRPOV 15:10
PROVIDERS: ATTEND Registered Nurse School
DX: I87.1 Compression of vein (principal); I82.512 Chronic embolism and thrombosis of left femoral vein; I82.522 Chronic embolism and thrombosis of left iliac vein; Z79.01 Long term (current) use of anticoagulants; Z88.0 Allergy status to penicillin; Z88.6 Allergy status to analgesic agent; Z91.010 Allergy to peanuts; Z91.012 Allergy to eggs; Z91.013 Allergy to seafood; Z91.014 Allergy to mammalian meats; Z91.018 Allergy to other foods

== ENCOUNTER → 2025-03-19 | Outpatient (REF) | payer OTHER ==
[2025-03-19 18:40] LABS: BASO # 0.0 10^3/uL (0.0-0.2); BASO % 0.8 % (0.0-1.0); EOS # 0.5 10^3/uL (0.0-0.5); EOS % 9.5 % (0.0-3.0); LYMPH # 1.8 10^3/uL (1.5-5.0); LYMPH % 34.7 % (24.0-44.0); MONO # 0.5 10^3/uL (0.0-0.8); MONO % 9.3 % (2.0-8.0); NEUTROPHILS # 2.3 10^3/uL (1.5-8.5); NEUTROPHILS % 45.5 % (36.0-66.0); PLATELET COUNT, AUTOMATED 255 10^3/uL (150-450)
[2025-03-19 19:18] LABS: IRON (FE) 69 UG/DL (50-170)
[2025-03-19 19:19] LABS: ALT/SGPT 16 U/L (7.0-40); AST/SGOT 15 U/L (<34); CALCIUM LEVEL 8.8 MG/DL (8.5-10.1); CARBON DIOXIDE LEVEL 24 MMOL/L (20-31); CHLORIDE LEVEL 106 MMOL/L (98-107); CREATININE FOR GFR 0.78 MG/DL (0.55-1.30); GLOMERULAR FILTRATION RATE > 90.0 (>60); MAGNESIUM LEVEL 2.1 MG/DL (1.8-2.4); PERCENT SATURATION 25.9 % (13.2-45.0); POTASSIUM SERUM 4.3 MMOL/L (3.5-5.1); SODIUM LEVEL 140 MMOL/L (136-145)
[2025-03-19 19:20] LABS: FREE T4 1.15 NG/DL (0.89-1.76)
== END ==
LOC: M SFHCADAM 14:08
PROVIDERS: ATTEND Physician Assistant
DX: I95.9 Hypotension, unspecified (principal); I26.99 Other pulmonary embolism without acute cor pulmonale; I82.422 Acute embolism and thrombosis of left iliac vein; I87.1 Compression of vein; I47.10 Supraventricular tachycardia, unspecified; I87.002 Postthrombotic syndrome without complications of left lower extremity

== ENCOUNTER → 2025-04-04 | Outpatient (CLI) | payer OTHER | LOC: M EKG 13:22 | PROVIDERS: ATTEND Physician Assistant | DX: I47.10 Supraventricular tachycardia, unspecified (principal); Z53.9 Procedure and treatment not carried out, unspecified reason ==

== ENCOUNTER → 2025-04-24 | Outpatient (REF) | payer OTHER ==
[~2025-04-24] MED LIST changes: +FAMO40TA3; +GINK125C PO; +METO1TAB32 PO; +PROM12.56 PO
[2025-04-24 18:31] LABS: BASO # 0.0 10^3/uL (0.0-0.2); BASO % 0.6 % (0.0-1.0); EOS # 0.5 10^3/uL (0.0-0.5); EOS % 7.7 % (0.0-3.0); LYMPH # 2.0 10^3/uL (1.5-5.0); LYMPH % 29.5 % (24.0-44.0); MONO # 0.5 10^3/uL (0.0-0.8); MONO % 7.1 % (2.0-8.0); NEUTROPHILS # 3.6 10^3/uL (1.5-8.5); NEUTROPHILS % 54.9 % (36.0-66.0); PLATELET COUNT, AUTOMATED 242 10^3/uL (150-450)
[2025-04-24 18:37] LABS: ALT/SGPT 19 U/L (7.0-40); AST/SGOT 18 U/L (<34); C REACTIVE PROTEIN QUANTITATIV < 0.50 MG/DL (<1.0); CALCIUM LEVEL 9.2 MG/DL (8.5-10.1); CARBON DIOXIDE LEVEL 28 MMOL/L (20-31); CHLORIDE LEVEL 105 MMOL/L (98-107); CREATININE FOR GFR 0.72 MG/DL (0.55-1.30); GLOMERULAR FILTRATION RATE > 90.0 (>60); POTASSIUM SERUM 3.7 MMOL/L (3.5-5.1); SODIUM LEVEL 143 MMOL/L (136-145)
== END ==
LOC: M LABDRWAD 17:22 → M LAB REF 17:22
PROVIDERS: ATTEND Specialist
DX: I82.512 Chronic embolism and thrombosis of left femoral vein (principal); I82.522 Chronic embolism and thrombosis of left iliac vein

== ENCOUNTER → 2025-04-25 | Outpatient (POV) | payer OTHER ==
[~2025-04-25] VITALS: Ht 162.6 cm; Wt 54.1 kg
[2025-04-25 14:02] VITALS: BP 130/59; O2SAT 99
== END ==
LOC: M IRPOV 13:51
PROVIDERS: ATTEND Registered Nurse School
DX: Z48.812 Encounter for surgical aftercare following surgery on the circulatory system (principal); I87.1 Compression of vein; I87.092 Postthrombotic syndrome with other complications of left lower extremity; Z86.718 Personal history of other venous thrombosis and embolism; Z88.0 Allergy status to penicillin; Z88.1 Allergy status to other antibiotic agents; Z88.6 Allergy status to analgesic agent; Z88.8 Allergy status to other drugs, medicaments and biological substances; Z91.014 Allergy to mammalian meats; Z91.013 Allergy to seafood; Z91.010 Allergy to peanuts; Z91.0120 Allergy to eggs, unspecified; Z91.018 Allergy to other foods

== ENCOUNTER → 2025-05-01 | Outpatient (CLI) | payer OTHER | LOC: M CARPUL 15:25 | PROVIDERS: ATTEND Physician Assistant | DX: R07.2 Precordial pain (principal) ==